=== PATIENT | male | born 1950 | race Caucasian/White ===

== ENCOUNTER 2019-09-22 08:08 | Day surgery (SDC) | payer MEDICARE, SELFPAY ==
[2019-09-22] VITALS (11 sets, daily range): BP systolic 125–185; BP diastolic 63–93; PULSE 63–82; RESP 12–17; TEMP 36.3–36.9; O2SAT 92–100
--- NOTE | 2019-09-22 08:35 | W.PM.OPSFHP ---
Same Day Surgery H&P Indication for Procedure/HPI DATE OF PROCEDURE: September 22, 2019 CHIEF COMPLAINT/INDICATIONFOR SURGICAL PROCEDURE: Abdominal pain PREOP DIAGNOSIS: Symptomatic cholelithiasis PLANNED PROCEDRUE: Operation Date: 09/22/19 11:35 Proposed Procedures p Laparoscopic Cholecystectomy 00909 K80.20(Not Applicable) - Quentin Lora MD This is a pleasant 68 years old gentleman with history of symptomatic cholelithiasis associated with fatty dyspepsia and right upper quadrant abdominal pain, patient was supposed to get his surgery few months ago but for different reasons he was not able to get it done, now he is ready and he comes today after informed consent being obtained for laparoscopic cholecystectomy possible open. Since it has been a long time since patient had blood work will obtain today CBC and CMP ROS All systems have been reviewed negative except as per the above Medications/Allergies* Home Medications Medication Instructions Recorded Confirmed Type amlodipine 5 mg PO DAILY 09/22/19 09/22/19 History bisacodyl 5 mg PO DAILY 09/22/19 09/22/19 History pantoprazole 20 mg PO DAILY 09/22/19 09/22/19 History sertraline 200 mg PO DAILY 09/22/19 09/22/19 History Allergies/Adverse Reactions Allergy/AdvReac Type Severity Reaction Status Date / Time clozapine Allergy Unknown Unknown Verified 09/22/19 08:37 haloperidol [From Haldol] Allergy Unknown Unknown Verified 09/22/19 08:37 mirtazapine Allergy Unknown Unknown Verified 09/22/19 08:37 nefazodone Allergy Unknown Unknown Verified 09/22/19 08:37 clonazepam AdvReac ADR-Irritab Verified 09/22/19 08:37 le Pertinent History/Comorbid Conditions* Schizophrenia Obsessive-compulsive disorder Hypothyroidism Hyperlipidemia Retrograde ejaculation Hematochezia BPH Cholelithiasis Previous hernia repair Pertinent Exam Findings alert, oriented x 3, clear to auscultation bilaterally and regular rate & rhythm Abdominal examination nontender nondistended soft no signs of peritonitis or guarding Recommendations Surgery/Procedure today (Plan of care;After thorough history physical examination and reviewing the chart ,I counseled the patient for laparoscopic cholecystectomy possible open, indications risks including but not limited injury to the common bile duct and other viscera.benefits and alternatives all discussed with the patient, and she did agree to proceed.All questions have been answered and all concerns have been addressed to patient's satisfaction.Informed consent per chart) Coding Level of Care Code Acute Stemhole Borer And Topper for Alex Webb
[2019-09-22] MEDS: sodium chloride 0.9% 1,000 ML 30 ML IV (08:45)
--- NOTE | 2019-09-22 09:00 | ANES.PREANE2 ---
Pre-Anesthetic Assessment Pre-Anesthetic Assessment: Height/Weight: Height 1.83 m Weight 72.575 kg Temp Pulse Resp BP Pulse Ox 98.5 F 63 17 125/63 93 09/22/19 08:33 09/22/19 08:33 09/22/19 08:33 09/22/19 08:33 09/22/19 08:33 Preop Diagnosis: Symptomatic cholelithiasis Proposed Procedure: Operation Date: 09/22/19 11:35 Proposed Procedures p Laparoscopic Cholecystectomy 03764 K80.20(Not Applicable) - Quentin Lora MD Last intake: Intake Last Liquid Date 09/22/19 Last Liquid Time 03:00 Last Solid Date 09/22/19 Last Solid Time 17:15 Social: Social History: No alcohol and No tobacco Exam: Pre-Anes Outpt Exam: alert, oriented x 3, clear to auscultation bilaterally and regular rate & rhythm Airway: Submandibular: WNL Cervical ROM: WNL MP: 2 Dentition: Other (ok) History/ROS: No significant history except as noted Pulmonary: Pulmonary: None reported CV/HEM: CV/HEM: HTN : : None reported Hepatic: Hepatic: None reported GI: GI: GERD (probably 2nd to GB Dz) Metabolic: Metabolic: None reported Musc/skel: Musc/skel: None reported Neuropsych: Neuropsych: Anxiety and Depression Comments: schizophrenia Anesthetic Plan: ASA status: 3 Anesthesia: Anesthesia Evaluation and General Risk of > 500 ml blood loss (7ml/kg in children): No Meds/Allergies Current Medications: Current Medications Generic Name Dose Route Start Last Admin Trade Name Freq PRN Reason Stop Dose Admin Sodium Chloride 1,000 mls @ 30 ml s/hr 09/22/19 08:30 09/22/19 08:45 Sodium Chloride 0.9% IV 09/23/19 08:29 30 mls/hr .Q24H ROBBIE Administration Data Anesthesia Cardiac Studies: No Data to Display
[2019-09-22 09:20] LABS: Basophils % 0.4 %; Eosinophils # 0.3 10^3/uL (0.0-0.8); Eosinophils % 3.8 %; Hematocrit 42.5 % (42.0-52.0); Hemoglobin 14.2 g/dL (11.7-16.6); Lymphocytes # 1.6 10^3/uL (0.8-4.8); Lymphocytes % 18.9 %; Mean Corpuscular HGB Conc 33.4 g/dL (30.0-36.0); Mean Corpuscular Hemoglobin 30.8 pg (28.0-34.0); Mean Corpuscular Volume 92.2 fL (80-94); Mean Platelet Volume 10.2 fL (7.4-10.4); Monocytes # 0.6 10^3/uL (0.2-0.9); Neutrophils # 5.7 10^3/uL (1.8-7.7); Neutrophils % 69.5 %; Nucleated Red Blood Cells % 0 %; Platelet Count 197 10^3/cmm (130-400); Red Blood Count 4.61 10^6/uL (4.1-5.3); Red Cell Distribution Width 12.9 % (12.1-15.1); White Blood Count 8.3 10^3/uL (4.0-10.0)
[2019-09-22] MEDS: lidocaine 2% INJ 20 mL INJECTION (09:32)
[2019-09-22 09:37] LABS: Alanine Aminotransferase 27 U/L (0-41); Alkaline Phosphatase 95 IU/L (40-130); Aspartate Amino Transferase 25 U/L (0-40); Blood Urea Nitrogen 12 mg/dL (8-23); Calcium 9.3 mg/dL (8.5-10.5); Carbon Dioxide 31 mmol/L (22-29); Chloride 103 mmol/L (98-107); Globulin 3.4 g/dL (1.3-4.6); Glomerular Filtration Rate 111.8 mL/min (90-130); Glucose 115 mg/dL (65-115); Osmolality Calculated 293 mOsm/kg (285-295); Sodium 143 mmol/L (136-145); Total Bilirubin 0.4 mg/dL (0.15-1.2); Total Protein 7.4 g/dL (6.6-8.7)
--- NOTE | 2019-09-22 10:30 | PM.OP ---
Operative Report Date of procedure: September 22, 2019 Pre-op Diagnosis: Symptomatic cholelithiasis Post-op diagnosis: other (Chronic calculus cholecystitis) Procedure Done: Laparoscopic cholecystectomy Specimens removed/disposition: Gallbladder and contents Surgeon: Quentin Lora Weight Training Instructor: Surgical johanna Hirsch Circulating nurse Chikis Anesthesia: General (JUDD Payne) Estimated blood loss (mL): 10 Condition: stable Disposition: same day Brief History: This is a pleasant 69 years old gentleman referred to my office with history of symptomatic cholelithiasis. Plan of care; After thorough history physical examination and reviewing the chart ,I counseled the patient for laparoscopic cholecystectomy possible open, indications risks including but not limited injury to the common bile duct and other viscera.benefits and alternatives all discussed with the patient, and she did agree to proceed. All questions have been answered and all concerns have been addressed to patient's satisfaction. Informed consent per chart Procedure: Patient was identified in the holding area and taken back to the operative suite, placed in supine position intubated by anesthesia . Time-out was done verifying the patient's name/date of /planned procedure and destination after the procedure, all were in agreement. SCDs confirmed to be functioning, preoperative antibiotics administered per protocol, and beta dyana protocol was confirmed. Patient was appropriately secured to the table, footboard was applied to the OR table, before prep and drape anesthesia was asked to tilt the table back and forth to make sure that the patient is appropriately secured and he was. Prep and drape of the abdomen was done under the usual sterile technique, followed by that supraumbilical skin incision,skin incision was done by a 15 blade knife, and stay sutures were applied to the fascia and Bassett trocar technique was used to enter the abdominal without injuring any abdominal viscera, started by low flow gas insufflation followed by a high flow, started with a 10 mm laparoscope and under direct vision there was no evidence of any injuries, the scope then switched to a 30? ,10 millimeter scope and under direct visualization 5 millimeter trocar was inserted in the epigastric region followed by two 5 mm trocars were inserted in the right upper quadrant that was done after injection of local lidocaine 2% at all incision sites. Gallbladder showed chronic calculus cholecystitis with scarring towards the cystic duct and cystic artery Patient was then positioned in the head up and tilted to the left dissection started by taking adhesions down using [place] forceps with heat, continued dissection until I identified the critical view of the cystic duct and cystic artery where seen connected to the gallbladder. Clips were applied on the cystic duct towards the common bile duct 1 towards the gallbladder then divided is in sharp scissors, 2 clips were then applied onto the cystic artery and 1 towards the gallbladder and divided by sharp scissors. There Was an additional vessel traversing the gallbladder fossa that was clipped as well Dissection was then carried along of the gallbladder from the gallbladder fossa using cautery as well as sharp dissection with heat energy. The gallbladder then was dissected out from the gallbladder fossa totally , cholecystectomy was then achieved and was placed in an Endo Catch bag and then retrieved from the Bassett trocar site under direct visualization using a 5 mm 30? scope through the epigastric trocar, specimen was then passed to the circulating nurse to go for permanent pathology,irrigation and hemostasis was done to the gallbladder fossa after hemostasis was secured, final survey laparoscopy was done that showed no injuries. Suction irrigation was obtained There wasa abnd of omentum attached at the infrumblical region that was taken down using electrocautrization under direct vision. The supraumbilical fascial defect was then closed using interrupted Vicryl sutures using a fascial closure device ;Milton Kemp under direct visualization Gas was allowed to deflate,Trocars were then taken out under direct vision there was no evidence of bleeding Specimen was passed to the circulating nurse for permanent pathology. No drains were placed and the supraumbilical incision as well as all trocar sites were closed by by 4-0 Monocryl to approximate the skin edges of the supraumbilical incision, dressing was applied in the form of Dermabond and the patient patient got extubated and was taken to recovery area in a stable condition. Count of sponges, needles and instruments were completed at the end of the procedure I was present for the whole entire procedure.
--- NOTE | 2019-09-22 11:04 | PC.NURSE ---
1102- ORAL AIRWAY OUT, SIMPLE MASK AT 6LPM, SAT 97%
[2019-09-22] MEDS: HYDROcodone-acetaminophen 5-325 mg Tablet 1 TAB PO (11:58)
== END 2019-09-22 13:03 | disposition home or self-care (01) ==
PROVIDERS: Family Provider Internal Medicine; PCP Emergency Medicine Emergency Medical Services; Visit Provider Surgery
PROC: 0FT44ZZ Resection of Gallbladder, Percutaneous Endoscopic Approach (ICD-10-PCS; CPT 47562; principal; 2019-09-22 11:35)
DX: K80.10 Calculus of gallbladder with chronic cholecystitis without obstruction (principal); I10 Essential (primary) hypertension; K21.9 Gastro-esophageal reflux disease without esophagitis; E03.9 Hypothyroidism, unspecified; E78.5 Hyperlipidemia, unspecified; N40.0 Benign prostatic hyperplasia without lower urinary tract symptoms
CPT/HCPCS: 47562; 12345; 36415; 80053; 85025; 88304; 96365; J0131; J0690; J1100; J2001; J2405; J2704; J2710; J3010; J3490; J7030

== ENCOUNTER → 2020-01-05 11:44 | Outpatient (BNVA) | payer OTHER, SELFPAY | PROVIDERS: Family Provider Internal Medicine; PCP Emergency Medicine Emergency Medical Services; Referring Provider Emergency Medicine Emergency Medical Services; Visit Provider Specialist | DX: G20 Parkinson's disease (principal) | CPT/HCPCS: 99214 ==

== ENCOUNTER 2021-04-26 08:07 | Outpatient (CLI) | payer MEDICARE, SELFPAY ==
--- NOTE | 2021-04-26 08:11 | CT_ITS ---
WS: [id number] CT CHEST WITH INTRAVENOUS CONTRAST HISTORY: DYSPHAGIA TECHNIQUE: Contiguous 5 mm axial imaging performed on the thorax. Coronal and sagittal reformats are submitted. All CT scans at [facility] use at least one of these dose optimization techniques: automated exposure control; mA and/or kV adjustment per patient size (includes targeted exams where dose is matched to clinical indication); or iterative reconstruction. CONTRAST: Omnipaque 300; 95 mL IV. DLP: 749.38 mGycm COMPARISON: None available. Lungs and central airway: Mild hyperinflation. No pulmonary mass, nodule or pneumonia. Pleura: Normal. No pleural effusion. Heart and pericardium: Normal size heart with no pericardial effusion. Scattered coronary artery calc ifications. Mediastinum and tonny: No mediastinum or hilar adenopathy. Vessels: Normal size aortic and pulmonary artery. No coronary artery calcifications. Chest wall and lower neck: No soft tissue masses. Upper abdomen: Prior cholecystectomy. 3 mm hypodensity in the RIGHT lobe of the liver. Visualized col on demonstrates moderate constipation. Osseous structures: No destructive process. CT/CT chest w con* [id number] IMPRESSION: 1. Mild emphysema. 2. No pulmonary mass or pneumonia. 3. No adenopathy. 4. Prior cholecystectomy.
--- NOTE | 2021-04-26 08:13 | FL_ITS ---
WS: [id number] ESOPHAGRAM WITH FLUOROSCOPY HISTORY: DYSPHAGIA COMPARISON: None available. FLUOROSCOPY TIME: 1.3 minutes. Esophagus and swallowing function: Patient swallowed the barium mixture without difficulty. No strict ures or mucosal abnormalities are identified. No persistent filling defects. Barium tablet was swallo wed without difficulty. Very mild cricopharyngeal spasm. Gastroesophageal reflux: None. Hiatal hernia: Small hiatal hernia was visualized briefly during this examination. FL/FL barium swallow [id number] IMPRESSION: 1. No high-grade strictures in the esophagus. 2. Small hiatal hernia. 3. Mild cricopharyngeal spasm.
[2021-04-26] MEDS: iohexol 300 mg/mL 100 mL Btl IV (08:48)
== END 2021-04-26 08:08 | disposition home or self-care (01) ==
PROVIDERS: PCP Nurse Practitioner Family; Visit Provider Specialist
DX: R05.9 Cough, unspecified (principal); R13.10 Dysphagia, unspecified; J43.9 Emphysema, unspecified; Z90.49 Acquired absence of other specified parts of digestive tract; K44.9 Diaphragmatic hernia without obstruction or gangrene
CPT/HCPCS: 71260; 74220; Q9967

== ENCOUNTER 2021-04-27 06:37 | Emergency (ER) | payer OTHER, MEDICARE, SELFPAY ==
[2021-04-27 06:37] VITALS: BP 178/82; PULSE 90; RESP 18; TEMP 37; O2SAT 95; BMI 20.9
--- NOTE | 2021-04-27 06:38 | ED_ITS ---
HPI - Abdominal Pain General: Chief Complaint: Abdominal Pain Stated Complaint: ABD PAIN Time Seen by Provider: 04/27/21 06:37 History of Present Illness: HPI narrative: Mr. Henderson is a 70-year-old gentleman with history of psychiatric disorder, hypertension, diabetes who presents emergency department due to abdominal pain. Symptom onset was gradual 4 to 5 days ago. He notes increased thirst and increased urine output. He has a longstanding history of reduced stream that has been worsening, he has multiple times of getting up at night to urinate. Surgical abdominal history notable for cholecystectomy. He has a previous history of hernia repair and has a current known inguinal hernia however he reports that this pain is different than that pain. Current pain is moderate intensity feels sharp and achy in the suprapubic region. He has mild associated generalized malaise and nausea, he has had a few episodes of watery stool. No other specific exacerbating or alleviating factors identified. Review of Systems General: Reports: 10 or more systems reviewed and unremarkable except in HPI and below PFSH ED PFSH: Medical History (Updated 04/27/21 @ 09:31 by Yonatan Huffman MD) Right inguinal hernia Schizo-affective schizophrenia Surgical History History of laparoscopic cholecystectomy Hx of umbilical hernia repair Physical Exam Narrative: EXAM NARRATIVE: GENERAL/CONSTITUTIONAL - well-appearing. No acute distress. Eyes - no scleral icterus., no conjunctival injection ENMT - Atraumatic external nose and ears. Moist mucous membranes NECK - supple. trachea midline CARDIOVASCULAR - regular rate and rhythm. RESPIRATORY -clear to auscultation bilaterally. ABDOMEN/GI - tenderness to moderate depth palpation in the suprapubic region and bilateral lower quadrants, no evidence of peritonitis MSK - Extremities without obvious deformity or tenderness to palpation SKIN - Warm, Dry NEURO - alert and appropriately oriented. Moves all extremities equally. Course ED course: - Patient was seen and evaluated by me at bedside - Patient placed on cardiac monitors, IV access obtained - Initial evaluation notable for no acute distress, nontoxic appearance. Abdominal exam as noted -Symptom treatment ordered - Labs notable for mild leukocytosis. Hyponatremia, hypokalemia, hypochloremia noted on metabolic panel, patient does endorse drinking more water over the past few days. Urinalysis concerning for urinary tract infection - Imaging notable for limited evaluation due to barium contrast from prior day. Patient does have enlarged prostate. - Upon serial reexamination after treatment the patient was improved - Based on patient history, evaluation, labs, and imaging as interpreted the most likely cause of the patient's condition is urinary tract infection in the context of bladder outlet obstruction. I discussed the nature and need to follow-up regarding possible etiologies of prostate enlargement. Given jolene rey's overall exam and evidence of urinary tract infection no additional inpatient management is required despite limited evaluation on CT - The results of ED evaluation were discussed with the patient including prescriptions and/or symptomatic cares (if applicable) including appropriate and responsible use, followup plan, and return precautions. The patient verbalized understanding and felt safe for discharge. - Patient discharged in satisfactory condition. Vital Signs: Vital signs: Vital Signs Temperature 98.6 F 04/27/21 06:37 Pulse Rate 81 04/27/21 07:57 Respiratory Rate 18 04/27/21 07:57 Blood Pressure 163/77 04/27/21 07:57 Pulse Oximetry 91 04/27/21 07:57 MDM - Abdominal Pain Medical Records: Attestation: I reviewed the patient's medical records. Lab Data: Attestation: I reviewed the patient's lab results. Labs: Lab Results 04/27/21 04/27/21 04/27/21 07:00 07:00 07:46 WBC 12.8 10^3/uL H 10 ^3/uL (4.0-10.0) RBC 4.08 10^6/uL L 10 ^6/uL (4.1-5.3) Hgb 12.4 g/dL g/dL (11.7-16.6) Hct 35.7 % L % (42.0-52.0) MCV 87.5 fl fl (80-94) MCH 30.4 pg pg (28.0-34.0) MCHC 34.7 g/dL g/dL (30.0-36.0) RDW 12.1 % % (12.1-15.1) Plt Count 192 10^3/cmm 10^3 /cmm (130-400) MPV 10.3 fL fL (7.4-10.4) Neut % (Auto) 82.8 % % Lymph % (Auto) 8.4 % % Leake % (Auto) 8.1 % % Eos % (Auto) 0.3 % % Baso % (Auto) 0.2 % % Neut # (Auto) 10.60 10^3/uL H 1 0^3/uL (1.8-7.7) Lymph # (Auto) 1.1 10^3/uL 10^3/ uL (0.8-4.8) Leake # (Auto) 1.0 10^3/uL H 10^ 3/uL (0.2-0.9) Eos # (Auto) 0.0 10^3/uL 10^3/ uL (0.0-0.8) Baso # (Auto) 0.0 10^3/uL 10^3/ uL (0.0-0.1) Nucleated RBC % (a uto) 0 % % Nucleated RBCs # 0.0 /100WBC /100W BC Sodium Cancelled 126 mmol/L L mmol /L (136-145) Potassium Cancelled 3.4 mmol/L L mmol /L (3.5-5.1) Chloride Cancelled 91 mmol/L L mmol/ L (98-107) Carbon Dioxide Cancelled 26 mmol/L mmol/L (22-29) Anion Gap Cancelled 12.4 (5-19) BUN Cancelled 7 mg/dL L mg/dL (8-23) Creatinine Cancelled 0.5 mg/dL L mg/dL (0.7-1.2) GFR Calculation Cancelled 164.4 mL/min H mL /min (90-130) Glucose Cancelled 119 mg/dL H mg/dL (65-115) Calculated Osmolal ity Cancelled 261 mOsm/kg L mOs m/kg (285-295) Calcium Cancelled 8.2 mg/dL L mg/dL (8.5-10.5) Total Bilirubin Cancelled 0.4 mg/dL mg/dL (0.15-1.2) AST Cancelled 17 U/L U/L (0-40) ALT Cancelled 15 U/L U/L (0-41) Alkaline Phosphata se Cancelled 84 IU/L IU/L (40-130) Total Protein Cancelled 5.9 g/dL L g/dL (6.6-8.7) Albumin Cancelled 3.5 g/dL g/dL (3.5-5.2) Globulin Cancelled 2.4 g/dL g/dL (1.3-4.6) Lipase Cancelled 22 U/L U/L (13-60) Urine Color Urine Appearance Urine pH Ur Specific Gravit y Urine Protein Urine Glucose (UA) Urine Ketones Urine Blood Urine Nitrate Urine Bilirubin Urine Urobilinogen Ur Leukocyte Jodi ase Urine RBC Urine WBC Ur Squamous Epith Cells Amorphous Sediment Urine Bacteria 04/27/21 09:00 WBC RBC Hgb Hct MCV MCH MCHC RDW Plt Count MPV Neut % (Auto) Lymph % (Auto) Leake % (Auto) Eos % (Auto) Baso % (Auto) Neut # (Auto) Lymph # (Auto) Leake # (Auto) Eos # (Auto) Baso # (Auto) Nucleated RBC % (a uto) Nucleated RBCs # Sodium Potassium Chloride Carbon Dioxide Anion Gap BUN Creatinine GFR Calculation Glucose Calculated Osmolal ity Calcium Total Bilirubin AST ALT Alkaline Phosphata se Total Protein Albumin Globulin Lipase Urine Color Yellow (Yellow) Urine Appearance Sl hazy (CLEAR) Urine pH 8 H (5-7) Ur Specific Gravit y 1.010 (1.005-1.030) Urine Protein Neg (Negative) Urine Glucose (UA) Norm (Normal) Urine Ketones 1+ H (Negative) Urine Blood Neg (Negative) Urine Nitrate Negative (Negative) Urine Bilirubin Neg (Negative) Urine Urobilinogen Norm mg/dL mg/dL (Negative) Ur Leukocyte Jodi ase 2+ H (Negative) Urine RBC None /hpf /hpf (0-2) Urine WBC 25-40 /hpf H /hpf (0-5) Ur Squamous Epith Cells None /hpf /hpf (0-5) Amorphous Sediment Not Reportable Urine Bacteria 2+ /hpf H /hpf (NONE) Discharge Plan Discharge Patient Disposition: Home Clinical Impression: Abdominal pain, Enlarged prostate, Acute UTI Condition: Stable Prescriptions: New Flomax 0.4 mg capsule 0.4 mg PO .qhs Qty: 30 RF: 0 Cipro 500 mg tablet 500 mg PO BID 14 Days Qty: 28 RF: 0 No Action aripiprazole IM .MONTHLY RF: 0 metformin 500 mg tablet 500 mg PO DAILY RF: 0 sertraline 100 mg Tablet 200 mg PO DAILY RF: 0 amlodipine 5 mg Tablet 5 mg PO DAILY RF: 0 pantoprazole 20 mg Tablet,Delayed Release (Dr/Ec) 20 mg PO DAILY RF: 0 bisacodyl 5 mg Tablet,Delayed Release (Dr/Ec) 5 mg PO DAILY RF: 0 Discharge Orders: Discharge ED (Routine); Ordered 04/27/21 Ordered By: Yonatan Huffman Referrals: Bhavna Valerio FNP [Primary Care Provider] - Discharge Diet: Advance as tolerated and Clear Liquid Discharge Activity: Resume usual activity Patient Instructions: Urinary Tract Infection in Men (ED), Abdominal Pain (ED) Activity Restrictions/Additional Instructions: Thank you for visiting the emergency department. You were seen and evaluated for abdominal pain. The exact cause of your symptoms is unclear though may be related to a urinary tract infection. You will be given a prescription for antibiotics . CT was limited in evaluation due to the retained barium contrast. You were noted to have heterogeneously enhancing nodular enlarged prostate suspicious for neoplasia/hyperplasia measuring 5.4 x 5.3 CM. Indentation on the bladder with evidence of bladder outlet obstruction. This requires follow-up with your [facility] care provider after and urology, you need further evaluation for possibility of cancer. You will be given a prescription to aid with urinary symtpoms. This can cause low blood pressure, please be cautious standing suddenly and watch for signs like dizziness. Your sodium, potassium, and chloride were mildly low, you should not drink excessive amounts of water and should drink electrolyte solutions sparingly throughout the day. Please return to the emergency department for worsening of your symptoms, failure to improve, inability to void, or anything else that you are concerned about and feel needs emergency department evaluation. Coding Level of Care Code ED Web Application Tester for Alex Webb
--- NOTE | 2021-04-27 06:48 | CT_ITS ---
WS: [id number] CT ABDOMEN PELVIS TECHNIQUE: Contrast-enhanced CT of the abdomen and pelvis with coronal and sagittal reformatted image s. CLINICAL INFORMATION: suprapubic abdominal pain COMPARISON: None. DLP: 1340.[address] scans at [facility] use at least one of these dose optimization techniques: automated e xposure control; mA and/or kV adjustment per patient size (includes targeted exams where dose is matc hed to clinical indication); or iterative reconstruction. FINDINGS: Retained barium in the colon from recent barium swallow. This degrades images in the abdomen and pelv is. Tiny hepatic cysts. Normal GE junction. Adrenal glands are normal. No hydronephrosis in either kidney . Pancreas appears normal. Normal caliber abdominal aorta. Aortic calcification. Urine distended bladder with heterogeneous nodular enlarged prostate measuring 5.3 x 5.4 cm. Indentat ion on the bladder. Recommend correlation PSA. Evidence of bladder outlet obstruction. Tiny fat-containing umbilical hernia. Mild disc space narrowing L4-5. Lumbar curve convex left. Incidental fat-containing right inguinal hernia. CT/CT abdomen pelvis w con* [id number] IMPRESSION: 1. Images significantly degraded by retained barium in the colon from recent b arium swallow. 2. Heterogeneously enhancing nodular enlarged prostate suspicious for neoplasi a/hyperplasia measuring 5.4 x 5.3 CM. Indentation on the bladder with evidence of bladder outlet obstruction. Recommend correlation PSA. 3. Prior cholecystectomy. 4. Tiny fat-containing umbilical hernia. 5. No other suspicious findings considering limitations from barium artifact.
[2021-04-27] MEDS: ketorolac 30 mg/mL INJ 15 MG IVP (07:08)
[2021-04-27] MEDS: ondansetron 2 mg/ML SDV 2 mL 4 MG IVP (07:09)
[2021-04-27 07:12] LABS: Basophils % 0.2 %; Eosinophils % 0.3 %; Hematocrit 35.7 % (42.0-52.0); Hemoglobin 12.4 g/dL (11.7-16.6); Lymphocytes # 1.1 10^3/uL (0.8-4.8); Lymphocytes % 8.4 %; Mean Corpuscular HGB Conc 34.7 g/dL (30.0-36.0); Mean Corpuscular Hemoglobin 30.4 pg (28.0-34.0); Mean Corpuscular Volume 87.5 fl (80-94); Mean Platelet Volume 10.3 fL (7.4-10.4); Monocytes % 8.1 %; Neutrophils % 82.8 %; Nucleated Red Blood Cells % 0 %; Platelet Count 192 10^3/cmm (130-400); Red Blood Count 4.08 10^6/uL (4.1-5.3); Red Cell Distribution Width 12.1 % (12.1-15.1); White Blood Count 12.8 10^3/uL (4.0-10.0)
[2021-04-27 07:57] VITALS: BP 163/77; PULSE 81; RESP 18; O2SAT 91
[2021-04-27] MEDS: sodium chloride 0.9% 500 ML 999 ML IV (08:09)
[2021-04-27 08:23] LABS: Alanine Aminotransferase 15 U/L (0-41); Albumin Level 3.5 g/dL (3.5-5.2); Alkaline Phosphatase 84 IU/L (40-130); Anion Gap 12.4 (5-19); Aspartate Amino Transferase 17 U/L (0-40); Blood Urea Nitrogen 7 mg/dL (8-23); Calcium 8.2 mg/dL (8.5-10.5); Carbon Dioxide 26 mmol/L (22-29); Chloride 91 mmol/L (98-107); Globulin 2.4 g/dL (1.3-4.6); Glomerular Filtration Rate 164.4 mL/min (90-130); Glucose 119 mg/dL (65-115); Lipase 22 U/L (13-60); Osmolality Calculated 261 mOsm/kg (285-295); Potassium 3.4 mmol/L (3.5-5.1); Sodium 126 mmol/L (136-145); Total Bilirubin 0.4 mg/dL (0.15-1.2); Total Protein 5.9 g/dL (6.6-8.7)
[2021-04-27 09:19] LABS: Urine Appearance SL Hazy (CLEAR); Urine Color Yellow (Yellow); pH Urine 8 (5-7)
[2021-04-27 09:20] LABS: Add Urine Microscopic? YES; Bilirubin Urine Neg (Negative); Blood Urine Neg (Negative); Glucose Urine UA Norm (Normal); Ketones Urine 1+ (Negative); Leukocyte Esterase Urine 2+ (Negative); Nitrate Urine Negative (Negative); Protein Urine Neg (Negative); Urobilinogen Urine Norm (Negative)
[2021-04-27 09:21] LABS: Add Urine Culture? Yes; Bacteria Urine 2+ /hpf; WBC Urine 25-40 /hpf (0-5)
[2021-04-27] MEDS: potassium chloride ER 20 mEq Tablet PO (09:40)
[2021-04-27] MEDS: acetaminophen 500 mg Tablet 1000 MG PO (09:40)
[2021-04-27 09:44] VITALS: BP 135/85; PULSE 82; RESP 17; O2SAT 93
== END 2021-04-27 09:55 | disposition home or self-care (01) ==
PROVIDERS: Emergency Provider Emergency Medicine; PCP Nurse Practitioner Family
DX: N39.0 Urinary tract infection, site not specified (principal); N40.0 Benign prostatic hyperplasia without lower urinary tract symptoms; Z79.84 Long term (current) use of oral hypoglycemic drugs
CPT/HCPCS: 74177; 80053; 81001; 83690; 85025; 87077; 87086; 87186; 96374; 96375; 99284; J1885; J2405; J7040; Q9967

== ENCOUNTER 2021-05-01 05:43 | Emergency (ER) | payer OTHER, MEDICARE, SELFPAY ==
[2021-05-01 05:50] VITALS: BP 168/90; PULSE 99; RESP 20; O2SAT 98; BMI 20.9
[2021-05-01 06:08] LABS: Add Urine Microscopic? NO; Charge for UA Resulting for Rev
--- NOTE | 2021-05-01 06:14 | W.ED.ABDPA2 ---
HPI - Abdominal Pain General: Chief Complaint: Abdominal Pain Stated Complaint: trouble urinating Time Seen by Provider: 05/01/21 05:52 History of Present Illness: HPI narrative: 70-year-old male presents emergency room with complaint of difficulty urinating. He was recently diagnosed with a UTI and has been on antibiotics for the last 3 days. Is not been able to void. He has had problems in the past with urinary retention requiring a Browning. MD elicited complaint: abdominal pain Pertinent past history: other (BPH.) Onset (ago): hour(s) Pain Consistency: constant Location: Suprapubic Severity: moderate Quality: cramping Associated Symptoms: Denies bloating, chills, coffee ground emesis, constipation, diarrhea, dysuria, fever(s), hematochezia, hematemesis, melena, nausea and vomiting Review of Systems Const: Denies: fever(s), chills, body aches, change in appetite, fatigue or malaise Card: Denies: chest pain, edema, dyspnea on exertion or orthopnea Resp: Denies: dyspnea, productive cough or non-productive cough GI: Denies: abdominal pain, nausea, vomiting, hematemesis, coffee ground emesis, diarrhea, constipation, bloating, hematochezia or melena : Reports: difficulty urinating and urinary hesitancy; Denies: flank pain, dysuria, urinary frequency or urinary urgency Skin/Breast: Denies: rash or pruritus [facility] ED PFSH: Medical History Right inguinal hernia Schizo-affective schizophrenia Surgical History History of laparoscopic cholecystectomy Hx of umbilical hernia repair Physical Exam Const: COMMON NORMALS: no acute distress GENERAL APPEARANCE: cooperative and comfortable ORIENTATION/CONSCIOUSNESS: Yes awake, Yes oriented to person, Yes oriented to place and Yes oriented to time HENMT: COMMON NORMALS: normocephalic, atraumatic and hearing grossly normal bilaterally HEAD & SCALP: normocephalic and atraumatic Resp: COMMON NORMALS: normal respiratory effort, No retractions, No use of accessory muscles and clear to auscultation bilaterally AUSCULTATION: clear to auscultation bilaterally Cardio: COMMON NORMALS: regular rate, regular rhythm and No murmurs present (Cardio) RATE: regular rate RHYTHM: regular rhythm GI: COMMON NORMALS: Soft to palpation and No hepatosplenomegaly present AUSCULTATION: Yes normoactive bowel sounds PALPATION: Yes Soft to palpation, No Tenderness to palpation present (GI), No Guarding due to palpation present (GI) and Yes No hepatosplenomegaly present Extremity: COMMON NORMALS: normal to inspection, capillary refill normal, no clubbing, cyanosis or edema, no calf tenderness and no pedal edema Neuro: SENSORIUM/ORIENTATION: Yes oriented to person, Yes oriented to place and Yes oriented to time Skin: COMMON NORMALS: no rashes or lesions noted GENERAL SKIN EXAM: no rashes or lesions noted Course Vital Signs: Vital signs: Vital Signs Pulse Rate 73 05/01/21 10:12 Respiratory Rate 16 05/01/21 10:12 Blood Pressure 150/77 05/01/21 10:12 Pulse Oximetry 96 05/01/21 07:27 MDM - Abdominal Pain MDM Narrative: Medical decision making narrative: Browning catheter placed. Patient had good relief of symptoms. antibiotics follow-up with primary care. Lab Data: Labs: Lab Results 05/01/21 05/01/21 05/01/21 06:05 08:06 08:06 WBC 10.2 10^3/uL H 10 ^3/uL (4.0-10.0) RBC 3.98 10^6/uL L 10 ^6/uL (4.1-5.3) Hgb 12.1 g/dL g/dL (11.7-16.6) Hct 35.1 % L % (42.0-52.0) MCV 88.2 fl fl (80-94) MCH 30.4 pg pg (28.0-34.0) MCHC 34.5 g/dL g/dL (30.0-36.0) RDW 12.1 % % (12.1-15.1) Plt Count 240 10^3/cmm 10^3 /cmm (130-400) MPV 10.1 fL fL (7.4-10.4) Neut % (Auto) 84.7 % % Lymph % (Auto) 7.7 % % [place] % (Auto) 6.5 % % Eos % (Auto) 0.3 % % Baso % (Auto) 0.3 % % Neut # (Auto) 8.62 10^3/uL H 10 ^3/uL (1.8-7.7) Lymph # (Auto) 0.8 10^3/uL 10^3/ uL (0.8-4.8) [place] # (Auto) 0.7 10^3/uL 10^3/ uL (0.2-0.9) Eos # (Auto) 0.0 10^3/uL 10^3/ uL (0.0-0.8) Baso # (Auto) 0.0 10^3/uL 10^3/ uL (0.0-0.1) Nucleated RBC % (a uto) 0 % % Nucleated RBCs # 0.0 /100WBC /100W BC Sodium 131 mmol/L L mmol /L (136-145) Potassium 4.5 mmol/L mmol/L (3.5-5.1) Chloride 93 mmol/L L mmol/ L (98-107) Carbon Dioxide 29 mmol/L mmol/L (22-29) Anion Gap 13.5 (5-19) BUN 6 mg/dL L mg/dL (8-23) Creatinine 0.5 mg/dL L mg/dL (0.7-1.2) GFR Calculation 164.4 mL/min H mL /min (90-130) Glucose 123 mg/dL H mg/dL (65-115) Calculated Osmolal ity 271 mOsm/kg L mOs m/kg (285-295) Calcium 8.9 mg/dL mg/dL (8.5-10.5) Urine Color Yellow (Yellow) Urine Appearance Clear (CLEAR) Urine pH 7 (5-7) Ur Specific Gravit y 1.005 (1.005-1.030) Urine Protein Neg (Negative) Urine Glucose (UA) Norm (Normal) Urine Ketones 1+ H (Negative) Urine Blood Neg (Negative) Urine Nitrate Negative (Negative) Urine Bilirubin Neg (Negative) Urine Urobilinogen Norm mg/dL mg/dL (Negative) Ur Leukocyte Jodi ase Negative (Negative) Discharge Plan Discharge Patient Disposition: Home Clinical Impression: Acute urinary retention, Enlarged prostate Condition: Stable Prescriptions: New ciprofloxacin HCl 500 mg tablet 500 mg PO BID Qty: 14 RF: 0 Changed Flomax 0.4 mg capsule 0.8 mg PO .qhs Qty: 30 RF: 0 No Action aripiprazole IM .MONTHLY RF: 0 metformin 500 mg tablet 500 mg PO DAILY RF: 0 sertraline 100 mg Tablet 200 mg PO DAILY RF: 0 amlodipine 5 mg Tablet 5 mg PO DAILY RF: 0 pantoprazole 20 mg Tablet,Delayed Release (Dr/Ec) 20 mg PO DAILY RF: 0 bisacodyl 5 mg Tablet,Delayed Release (Dr/Ec) 5 mg PO DAILY RF: 0 Cipro 500 mg tablet 500 mg PO BID 14 Days Qty: 28 RF: 0 Discharge Orders: Discharge ED (Routine); Ordered 05/01/21 Ordered By: Mele Duckworth Referrals: Bhavna Valerio FNP [Primary Care Provider] - Discharge Diet: Usual diet Discharge Activity: Increase activity as tolerated Patient Instructions: Opioid Safety Activity Restrictions/Additional Instructions: banking manager will make arrangements for you to follow-up with urology. Coding Level of Care Code ED Court Commissioner for Alex Webb
[2021-05-01 06:17] LABS: Bilirubin Urine Neg (Negative); Blood Urine Neg (Negative); Glucose Urine UA Norm (Normal); Ketones Urine 1+ (Negative); Leukocyte Esterase Urine Negative (Negative); Nitrate Urine Negative (Negative); Protein Urine Neg (Negative); Specific Gravity, Urine 1.005 (1.005-1.030); Urine Appearance Clear (CLEAR); Urine Color Yellow (Yellow); Urobilinogen Urine Norm (Negative); pH Urine 7 (5-7)
[2021-05-01 07:27] VITALS: BP 142/67; O2SAT 96
[2021-05-01 08:37] LABS: Basophils % 0.3 %; Eosinophils % 0.3 %; Hematocrit 35.1 % (42.0-52.0); Hemoglobin 12.1 g/dL (11.7-16.6); Lymphocytes # 0.8 10^3/uL (0.8-4.8); Lymphocytes % 7.7 %; Mean Corpuscular HGB Conc 34.5 g/dL (30.0-36.0); Mean Corpuscular Hemoglobin 30.4 pg (28.0-34.0); Mean Corpuscular Volume 88.2 fl (80-94); Mean Platelet Volume 10.1 fL (7.4-10.4); Monocytes # 0.7 10^3/uL (0.2-0.9); Monocytes % 6.5 %; Neutrophils # 8.62 10^3/uL (1.8-7.7); Neutrophils % 84.7 %; Nucleated Red Blood Cells % 0 %; Platelet Count 240 10^3/cmm (130-400); Red Blood Count 3.98 10^6/uL (4.1-5.3); Red Cell Distribution Width 12.1 % (12.1-15.1); White Blood Count 10.2 10^3/uL (4.0-10.0)
[2021-05-01 09:05] LABS: Anion Gap 13.5 (5-19); Blood Urea Nitrogen 6 mg/dL (8-23); Calcium 8.9 mg/dL (8.5-10.5); Carbon Dioxide 29 mmol/L (22-29); Chloride 93 mmol/L (98-107); Glomerular Filtration Rate 164.4 mL/min (90-130); Glucose 123 mg/dL (65-115); Osmolality Calculated 271 mOsm/kg (285-295); Potassium 4.5 mmol/L (3.5-5.1); Sodium 131 mmol/L (136-145)
[2021-05-01 10:12] VITALS: BP 150/77; PULSE 73; RESP 16
--- NOTE | 2021-05-02 09:51 | PC.SOCIAL ---
Addendum entered by Becky Moses 05/11/21 13:48: distribution operations manager spoke with Dani in Dr. Nunn office to confirm if an appointment had been scheduled for patient. distribution operations manager was told that the [place] is sending patient to [place]. Original Note: sent secure email to Christal Vee at [place] for the authorization to see Dr Ni. Also talked to Bridget at Urology clinic they are aware of need for appt and will wait for authorization from [place]. Once completed clinic will call patient.
== END 2021-05-01 10:15 | disposition home or self-care (01) ==
PROVIDERS: Emergency Medicine; Emergency Provider Family Medicine; PCP Nurse Practitioner Family
DX: N40.0 Benign prostatic hyperplasia without lower urinary tract symptoms (principal); R33.9 Retention of urine, unspecified
CPT/HCPCS: 51702; 51798; 80048; 81003; 85025; 99283

== ENCOUNTER 2021-05-05 10:35 | Emergency (ER) | payer OTHER, MEDICARE, SELFPAY ==
[2021-05-05 10:41] VITALS: BP 163/78; PULSE 84; RESP 18; TEMP 36.7; O2SAT 98; BMI 20.9
--- NOTE | 2021-05-05 10:49 | PC.NURSE ---
Had a rodriguez place Saturday, sent home with a leg bag and a larger bag. After bags were full, pt threw bags away. Need further education
--- NOTE | 2021-05-05 11:11 | CTR_ITS ---
PROCEDURE INFORMATION: Exam: CT Head Without Contrast Exam date and time: 05/05/2021 11:11 AM Age: 70 years old Clinical indication: Altered mental status/memory loss TECHNIQUE: Imaging protocol: Computed tomography of the head without contrast. Radiation optimization: All CT scans at this facility use at least one of these dose optimization techniques: automated exposure control; mA and/or kV adjustment per patient size (includes targeted exams where dose is matched to clinical indication); or iterative reconstruction. COMPARISON: MR head wo con* [id number] 02/07/2018 4:05 PM RADIATION DOSE METRICS: Total DLP (mGy-cm): 946.09 FINDINGS: Brain: No acute intracranial hemorrhage. There are prominent perivascular spaces within/adjacent to the basal ganglia bilaterally. There is a lacunar infarct in the right caudate head of indeterminate age. No mass, mass effect or midline shift.. There is no evidence of acute large vessel infarct.. There is mild patchy subcortical and periventricular hypodensity, most commonly associated with small vessel ischemic disease of indeterminate age. The posterior fossa is grossly unremarkable; however, it is partially obscurred by beam hardening artifact. Cerebral ventricles: The ventricles are normal in configuration. Paranasal sinuses: The visualized paranasal sinuses are clear. Mastoid air cells: No mastoid effusion. Auditory system: There is probable cerumen in the external auditory canals, bilaterally. Orbital cavity: The visualized orbits are unremarkable. Bones/joints: No acute fracture is seen. CT/CT head wo con* [id number] IMPRESSION: 1. 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 2. Mild presumed small vessel ischemic disease of indeterminate age. 3. No acute intracranial hemorrhage. Radiation Dose CTDIVOL = (mGy): DLP = 946.09 (mGy-cm)
--- NOTE | 2021-05-05 11:12 | ECG_ITS ---
[facility] Test Date: 2021-05-05 Pat Name: Sincere Henderson Department: Room: Gender: Male Environmental Project Manager: : 1950 Requested By: Mele Mejias Order Number: [id number] Malia MD: Leonila Cui M.D. Measurements Intervals [place] Rate: 79 P: 29 NE: 121 QRS: -11 QRSD: 105 T: 35 QT: 387 QTc: 444 Interpretive Statements SINUS RHYTHM Compared to ECG 06/29/2015 16:20:58 Sinus bradycardia no longer present Electronically Signed On 05-06-2021 8:53:09 CDT by Leonila Cui M.D. [id number]
--- NOTE | 2021-05-05 11:14 | ED_ITS ---
HPI - Male Genitourinary General: Chief complaint: Urogenital-Male Stated complaint: URINARY CATH ISSUES Time Seen by Provider: 05/05/21 10:47 History of Present Illness: HPI Narrative: 70-year-old male presents emergency room via EMS after PD was called for health and welfare check. Patient was really unable to give me any detailed information about how he came to be there other than he said the police knocked that his door violently and then EMS took him here. EMS reported to the nurse that the patient had taken back for the Browning catheter he had recently had placed for urinary retention and discarded and then attached a second bag that he had that became fully discarded that as well he was walking around the house with urine leaking of the Browning. Only called 911 to check and see why he EMS and PD were dispatched evidently he had [facility] was laughing and talking hysterically and they called PD due to the health and welfare check. He was not making any sense when they arrived so he was brought here for evaluation. When I asked him why he is here does not really give me any significant sensible answer. He says he cannot hear anything from above the ceiling tiles. I asked him why EMS and PD were called to his house he said it was to resolve a particular incident but will not describe what that incident is to him. He is on aripiprazole IM injections monthly. His recent he was started on ciprofloxacin. He has a history of diabetes as well. MD Complaint: other (Urinary retention/altered mental status) Onset (ago): hour(s) Duration: constant Relieving factors: none Exacerbating factors: none Context: new medication Associated symptoms: Reports nausea, urinary retention and other (Altered mental status); Deny discharge, dysuria, fevers/chills, hematuria, rash, swelling, urinary incontinence, mass or vomiting Review of Systems Const: Denies: fever(s), chills, body aches, change in appetite, fatigue or malaise ENMT: Denies: throat pain, ear or mastoid pain, nasal discharge or nasal congestion Card: Denies: chest pain, edema, dyspnea on exertion or orthopnea Resp: Denies: dyspnea, productive cough or non-productive cough GI: Reports: nausea; Denies: vomiting : Denies: dysuria, urinary incontinence or hematuria Skin/Breast: Denies: rash or pruritus PFSH ED PFSH: Medical History (Updated 05/05/21 @ 13:04 by Mele Duckworth DO) Right inguinal hernia Schizo-affective schizophrenia Surgical History History of laparoscopic cholecystectomy Hx of umbilical hernia repair Physical Exam Const: COMMON NORMALS: no acute distress GENERAL APPEARANCE: cooperative a nd comfortable ORIENTATION/CONSCIOUSNESS: Yes awake HENMT: COMMON NORMALS: normocephalic, atraumatic and hearing grossly normal bilaterally HEAD & SCALP: normocephalic and atraumatic Neck/C-Spine: COMMON NORMALS: no JVD Resp: COMMON NORMALS: normal respiratory effort, No retractions, No use of accessory muscles and clear to auscultation bilaterally AUSCULTATION: clear to auscultation bilaterally Cardio: COMMON NORMALS: no JVD, regular rate, regular rhythm and No murmurs present (Cardio) RATE: regular rate RHYTHM: regular rhythm GI: COMMON NORMALS: Soft to palpation and No hepatosplenomegaly present AUSCULTATION: Yes normoactive bowel sounds PALPATION: Yes Soft to palpation, No Tenderness to palpation present (GI), No Guarding due to palpation present (GI) and Yes No hepatosplenomegaly present Extremity: COMMON NORMALS: normal to inspection, capillary refill normal, no clubbing, cyanosis or edema, no calf tenderness and no pedal edema Skin: COMMON NORMALS: no rashes or lesions noted GENERAL SKIN EXAM: no rashes or lesions noted Course Vital Signs: Vital signs: Vital Signs Temperature 98.1 F 05/05/21 10:41 Pulse Rate 84 05/05/21 10:41 Respiratory Rate 18 05/05/21 10:41 Blood Pressure 163/78 05/05/21 10:41 Pulse Oximetry 98 05/05/21 10:41 MDM - Male MDM Narrative: Medical decision making narrative: Evaluated the patient for mental health issues. He is not suicidal or homicidal the report of him behaving abnormally can be substantiated it is just a report from 911 there was no other corroboration and he is denying. He does have a history of schizophrenia but at this time he is does not appear to be acutely psychotic. Offered him evaluation geriatric [facility] he declines and prefers to be discharged. I do not have enough to force him to stay on a 96-hour hold will discharge him home have him follow-up with urology. Lab Data: Labs: Lab Results 05/05/21 05/05/21 05/05/21 11:31 11:31 11:31 WBC 6.3 10^3/uL 10^3/ uL (4.0-10.0) RBC 4.41 10^6/uL 10^6 /uL (4.1-5.3) Hgb 13.4 g/dL g/dL (11.7-16.6) Hct 39.1 % L % (42.0-52.0) MCV 88.7 fl fl (80-94) MCH 30.4 pg pg (28.0-34.0) MCHC 34.3 g/dL g/dL (30.0-36.0) RDW 12.7 % % (12.1-15.1) Plt Count 309 10^3/cmm 10^3 /cmm (130-400) MPV 9.6 fL fL (7.4-10.4) Neut % (Auto) 74.6 % % Lymph % (Auto) 14.1 % % [place] % (Auto) 8.3 % % Eos % (Auto) 1.7 % % Baso % (Auto) 0.5 % % Neut # (Auto) 4.70 10^3/uL 10^3 /uL (1.8-7.7) Lymph # (Auto) 0.9 10^3/uL 10^3/ uL (0.8-4.8) [place] # (Auto) 0.5 10^3/uL 10^3/ uL (0.2-0.9) Eos # (Auto) 0.1 10^3/uL 10^3/ uL (0.0-0.8) Baso # (Auto) 0.0 10^3/uL 10^3/ uL (0.0-0.1) Nucleated RBC % (a uto) 0 % % Nucleated RBCs # 0.0 /100WBC /100W BC Sodium 135 mmol/L L mmol /L (136-145) Potassium 3.1 mmol/L L mmol /L (3.5-5.1) Chloride 96 mmol/L L mmol/ L (98-107) Carbon Dioxide 27 mmol/L mmol/L (22-29) Anion Gap 15.1 (5-19) BUN 11 mg/dL mg/dL (8-23) Creatinine 0.5 mg/dL L mg/dL (0.7-1.2) GFR Calculation 164.4 mL/min H mL /min (90-130) Glucose 111 mg/dL mg/dL (65-115) Calculated Osmolal ity 280 mOsm/kg L mOs m/kg (285-295) Calcium 8.9 mg/dL mg/dL (8.5-10.5) Total Bilirubin 0.4 mg/dL mg/dL (0.15-1.2) AST 22 U/L U/L (0-40) ALT 25 U/L U/L (0-41) Alkaline Phosphata se 84 IU/L IU/L (40-130) Total Protein 7.0 g/dL g/dL (6.6-8.7) Albumin 4.0 g/dL g/dL (3.5-5.2) Globulin 3.0 g/dL g/dL (1.3-4.6) TSH 2.61 uIU/mL uIU/m L (0.27-4.20) Salicylates < 0.3 mg/dL L mg/ dL (3-10) Urine Opiates Scre en Negative ng/mL ng /mL (Negative) Acetaminophen < 5.0 ug/mL L ug/ mL (10-30) Ur Barbiturates Sc reen Negative ng/mL ng /mL (Negative) Ur Phencyclidine S crn Negative ng/mL ng /mL (Negative) Ur Amphetamines Sc reen Negative ng/mL ng /mL (Negative) U Benzodiazepines Scrn Negative ng/mL ng /mL (Negative) Urine Cocaine Scre en Negative ng/mL ng /mL (Negative) U Marijuana (THC) Screen Negative ng/mL ng /mL (Negative) Ethyl Alcohol < 10 mg/dL mg/dL (0-10) Discharge Plan Discharge Patient Disposition: Home Clinical Impression: Acute urinary retention, Schizo-affective schizophrenia Condition: Stable Prescriptions: No Action aripiprazole IM .MONTHLY RF: 0 metformin 500 mg tablet 500 mg PO DAILY RF: 0 sertraline 100 mg Tablet 200 mg PO DAILY RF: 0 amlodipine 5 mg Tablet 5 mg PO DAILY RF: 0 pantoprazole 20 mg Tablet,Delayed Release (Dr/Ec) 20 mg PO DAILY RF: 0 bisacodyl 5 mg Tablet,Delayed Release (Dr/Ec) 5 mg PO DAILY RF: 0 Cipro 500 mg tablet 500 mg PO BID 14 Days Qty: 28 RF: 0 Flomax 0.4 mg capsule 0.8 mg PO .qhs Qty: 30 RF: 0 ciprofloxacin HCl 500 mg tablet 500 mg PO BID Qty: 14 RF: 0 Discharge Orders: Discharge ED (Routine); Ordered 05/05/21 Ordered By: Mele Duckworth Referrals: Bhavna Valerio FNP [Primary Care Provider] - Discharge Diet: Usual diet Discharge Activity: Resume usual activity Patient Instructions: Opioid Safety Activity Restrictions/Additional Instructions: Follow-up with urology within the next week to reevaluate the catheter. Coding Level of Care Code ED [employer] Plant Supervisor for Alex Fwedy Exam Comprehensive
[2021-05-05 11:43] LABS: Basophils % 0.5 %; Eosinophils # 0.1 10^3/uL (0.0-0.8); Eosinophils % 1.7 %; Hematocrit 39.1 % (42.0-52.0); Hemoglobin 13.4 g/dL (11.7-16.6); Lymphocytes # 0.9 10^3/uL (0.8-4.8); Lymphocytes % 14.1 %; Mean Corpuscular HGB Conc 34.3 g/dL (30.0-36.0); Mean Corpuscular Hemoglobin 30.4 pg (28.0-34.0); Mean Corpuscular Volume 88.7 fl (80-94); Mean Platelet Volume 9.6 fL (7.4-10.4); Monocytes # 0.5 10^3/uL (0.2-0.9); Monocytes % 8.3 %; Neutrophils % 74.6 %; Nucleated Red Blood Cells % 0 %; Platelet Count 309 10^3/cmm (130-400); Red Blood Count 4.41 10^6/uL (4.1-5.3); Red Cell Distribution Width 12.7 % (12.1-15.1); White Blood Count 6.3 10^3/uL (4.0-10.0)
[2021-05-05 12:20] LABS: Alanine Aminotransferase 25 U/L (0-41); Alkaline Phosphatase 84 IU/L (40-130); Anion Gap 15.1 (5-19); Aspartate Amino Transferase 22 U/L (0-40); Blood Urea Nitrogen 11 mg/dL (8-23); Calcium 8.9 mg/dL (8.5-10.5); Carbon Dioxide 27 mmol/L (22-29); Chloride 96 mmol/L (98-107); Glomerular Filtration Rate 164.4 mL/min (90-130); Glucose 111 mg/dL (65-115); Osmolality Calculated 280 mOsm/kg (285-295); Potassium 3.1 mmol/L (3.5-5.1); Sodium 135 mmol/L (136-145); Thyroid Stimulating Hormone 2.61 uIU/mL (0.27-4.20); Total Bilirubin 0.4 mg/dL (0.15-1.2)
[2021-05-05 12:21] LABS: Amphetamines Screen Urine Negative (Negative); Barbiturates Screen Urine Negative (Negative); Benzodiazepines Screen Urine Negative (Negative); Cocaine Screen Urine Negative (Negative); Opiate Screen Urine Negative (Negative); PCP Screen Urine Negative (Negative); THC Screen Urine Negative (Negative)
[2021-05-05 12:22] LABS: Acetaminophen < 5.0 ug/mL (10-30); Alcohol Level < 10 mg/dL (0-10); Salicylate < 0.3 mg/dL (3-10)
[2021-05-05 14:05] VITALS: BP 168/75; PULSE 90; RESP 18; O2SAT 99
--- NOTE | 2021-05-05 14:24 | DCPLANNER ---
manager marketing sales had message to schedule a follow up appointment for patient with Dr. Ni. manager marketing sales called the office of Dr. Ni, spoke with Dani, was told that patient is being referred [facility]. That the [facility] will be [facility] patient [facility] else.
== END 2021-05-05 14:06 | disposition home or self-care (01) ==
PROVIDERS: Emergency Provider Family Medicine; PCP Nurse Practitioner Family
DX: R33.9 Retention of urine, unspecified (principal); F25.9 Schizoaffective disorder, unspecified; Z79.84 Long term (current) use of oral hypoglycemic drugs
CPT/HCPCS: 70450; 80053; 80306; 80307; 84443; 85025; 93005; 99282

== ENCOUNTER 2021-06-09 08:53 | Outpatient (CLI) | payer MEDICARE, SELFPAY ==
--- NOTE | 2021-06-09 | CT_ITS ---
WS: [id number] CT scan of the neck. Additional two-dimensional coronal and sagittal reconstruction was performed. Clinical Data: DYSPHAGIA Comparison: None. DLP: 1053.[address] scans at [facility] use at least one of these dose optimization techniques: automated e xposure control; mA and/or kV adjustment per patient size (includes targeted exams where dose is matc hed to clinical indication); or iterative reconstruction. Findings: No lymphadenopathy is noted. The salivary glands are unremarkable. There is no prevertebral soft tiss ue swelling. The larynx is symmetric. The thyroid gland shows normal enhancement. The floor of the mo uth and parapharyngeal spaces are normal. The oral cavity is unremarkable. The carotid arteries bifurcate normally. The vertebral arteries show no abnormalities. The cervical s pine shows osteoarthritis and disc space narrowing. The lung apices show no abnormalities. The portio ns of the intracranial circulation which are seen demonstrate no abnormalities. No erosion of the sku ll or skull base is seen. CT/CT neck w con* [id number] Impression: Negative CT scan of the neck.
[2021-06-09] MEDS: iodixanol 320 mg/mL 100mL Btl IV (09:18)
== END 2021-06-09 08:54 | disposition home or self-care (01) ==
PROVIDERS: PCP Nurse Practitioner Family; Visit Provider Specialist
DX: R05.9 Cough, unspecified (principal); R13.10 Dysphagia, unspecified
CPT/HCPCS: 70491; Q9967

== ENCOUNTER → 2021-11-28 09:05 | Outpatient (BNVA) | payer OTHER, SELFPAY | PROVIDERS: PCP Emergency Medicine Emergency Medical Services; Visit Provider Nurse Practitioner Family | DX: N40.1 Benign prostatic hyperplasia with lower urinary tract symptoms (principal); R82.81 Pyuria | CPT/HCPCS: 51798; 81003; 87077; 87086; 87186; 99203 ==

== ENCOUNTER → 2022-01-01 13:09 | Outpatient (BNVA) | payer OTHER, SELFPAY | PROVIDERS: PCP Emergency Medicine Emergency Medical Services; Visit Provider Urology | DX: N40.1 Benign prostatic hyperplasia with lower urinary tract symptoms (principal); R82.71 Bacteriuria | CPT/HCPCS: 51741; 51798; 81003; 99213 ==

== ENCOUNTER → 2022-02-08 10:28 | Outpatient (BNVA) | payer OTHER, SELFPAY | PROVIDERS: PCP Emergency Medicine Emergency Medical Services; Visit Provider Podiatrist Foot & Ankle Surgery | DX: E11.42 Type 2 diabetes mellitus with diabetic polyneuropathy (principal); M76.821 Posterior tibial tendinitis, right leg; M76.822 Posterior tibial tendinitis, left leg | CPT/HCPCS: 99214 ==

== ENCOUNTER → 2022-04-02 14:56 | Outpatient (BNVA) | payer OTHER, SELFPAY | PROVIDERS: PCP Emergency Medicine Emergency Medical Services; Visit Provider Urology | DX: N40.1 Benign prostatic hyperplasia with lower urinary tract symptoms (principal) | CPT/HCPCS: 51741; 51798; 99213 ==

== ENCOUNTER → 2022-04-04 15:54 | Outpatient (BNVA) | payer OTHER, SELFPAY | PROVIDERS: PCP Emergency Medicine Emergency Medical Services; Visit Provider Urology | DX: N40.1 Benign prostatic hyperplasia with lower urinary tract symptoms (principal) | CPT/HCPCS: 81003 ==

== ENCOUNTER 2022-06-11 12:37 | Emergency (ER) | payer OTHER, SELFPAY ==
[2022-06-11 13:17] VITALS: BP 113/65; PULSE 74; RESP 16; TEMP 36.7; O2SAT 98
[2022-06-11 14:19] VITALS: PULSE 61; RESP 16; O2SAT 96
[2022-06-11 14:48] LABS: Basophils % 0.5 %; Eosinophils # 0.1 10^3/uL (0.0-0.8); Eosinophils % 1.2 %; Hematocrit 43.2 % (42.0-52.0); Hemoglobin 14.2 g/dL (11.7-16.6); Lymphocytes # 1.1 10^3/uL (0.8-4.8); Lymphocytes % 16.4 %; Mean Corpuscular HGB Conc 32.9 g/dL (30.0-36.0); Mean Corpuscular Hemoglobin 29.6 pg (28.0-34.0); Mean Platelet Volume 9.8 fL (7.4-10.4); Monocytes # 0.4 10^3/uL (0.2-0.9); Monocytes % 6.7 %; Neutrophils % 74.9 %; Nucleated Red Blood Cells % 0 %; Platelet Count 194 10^3/cmm (130-400); Red Cell Distribution Width 13.2 % (12.1-15.1); White Blood Count 6.4 10^3/uL (4.0-10.0)
[2022-06-11 15:19] LABS: Alanine Aminotransferase 26 U/L (0-41); Albumin Level 4.3 g/dL (3.5-5.2); Alkaline Phosphatase 85 U/L (40-130); Anion Gap 11.2 (5-19); Aspartate Amino Transferase 17 U/L (0-40); Blood Urea Nitrogen 15 mg/dL (8-23); Calcium 9.2 mg/dL (8.5-10.5); Carbon Dioxide 32 mmol/L (22-29); Chloride 99 mmol/L (98-107); Globulin 2.7 g/dL (1.3-4.6); Glucose 103 mg/dL (65-115); Osmolality Calculated 287 mOsm/kg (285-295); Potassium 4.2 mmol/L (3.5-5.1); Sodium 138 mmol/L (136-145); Total Bilirubin 0.4 mg/dL (0.15-1.2)
[2022-06-11 16:21] VITALS: BP 130/74; PULSE 61; O2SAT 97
--- NOTE | 2022-06-11 16:21 | PC.NURSE ---
WHILE WITH PT IN LOBBY PT IS IN NAD.
--- NOTE | 2022-06-11 18:06 | PC.NURSE ---
CALL TO LOBBY NO ANSWER
--- NOTE | 2022-06-11 18:23 | PC.NURSE ---
called to lobby no answer.
== END 2022-06-11 18:24 | disposition left against medical advice (07) ==
PROVIDERS: Emergency Medicine; Emergency Provider Family Medicine; PCP Emergency Medicine Emergency Medical Services
DX: Z53.21 Procedure and treatment not carried out due to patient leaving prior to being seen by health care provider (principal)
CPT/HCPCS: 36415; 80053; 85025; 99283

== ENCOUNTER 2022-06-25 03:00 | Emergency (ER) | payer OTHER, SELFPAY ==
[2022-06-25 03:02] VITALS: BP 176/79; PULSE 101; RESP 18; TEMP 36.6; O2SAT 98; BMI 24.4
--- NOTE | 2022-06-25 03:40 | CTR_ITS ---
PROCEDURE INFORMATION: Exam: CT Chest With Contrast; Diagnostic Exam date and time: 06/25/2022 4:08 AM Age: 71 years old Clinical indication: Injury or trauma; Fall; Generalized; Blunt trauma (contusions or hematomas); Prior surgery; Surgery date: 6+ months; Surgery type: Ans[place], hernia repair; Additional info: Fall >3ft right flank pain TECHNIQUE: Imaging protocol: Diagnostic computed tomography of the chest with contrast. Radiation optimization: All CT scans at this facility use at least one of these dose optimization techniques: automated exposure control; mA and/or kV adjustment per patient size (includes targeted exams where dose is matched to clinical indication); or iterative reconstruction. Contrast material: OMNI 350; Contrast volume: 100 ml; Contrast route: INTRAVENOUS (IV); COMPARISON: CT chest w con* [id number] 04/26/2021 8:42 AM RADIATION DOSE METRICS: Total DLP (mGy-cm): 779.45 FINDINGS: Lungs: Bibasilar atelectasis. Pleural spaces: Unremarkable. No pneumothorax. No pleural effusion. Heart: Cardiomegaly. Lymph nodes: Unremarkable. No enlarged lymph nodes. Vasculature: Unremarkable. No aortic aneurysm. Bones/joints: Acute nondisplaced right lateral 7th through 10th rib fractures. Soft tissues: Unremarkable. PROCEDURE INFORMATION: Exam: CT Abdomen And Pelvis With Contrast Exam date and time: 06/25/2022 4:08 AM Age: 71 years old Clinical indication: Injury or trauma; Fall; Generalized; Blunt trauma (contusions or hematomas); Prior surgery; Surgery date: 6+ months; Surgery type: Ansley, hernia repair; Additional info: Fall >3ft right flank pain TECHNIQUE: Imaging protocol: Computed tomography of the abdomen and pelvis with contrast. Radiation optimization: All CT scans at this facility use at least one of these dose optimization techniques: automated exposure control; mA and/or kV adjustment per patient size (includes targeted exams where dose is matched to clinical indication); or iterative reconstruction. Contrast material: OMNI 350; Contrast volume: 100 ml; Contrast route: INTRAVENOUS (IV); COMPARISON: CT abdomen pelvis w con* [id number] 04/27/2021 8:37 AM RADIATION DOSE METRICS: Total DLP (mGy-cm): 779.45 FINDINGS: Liver: Subcentimeter low-density lesions in the liver are too small to characterize, though statistically benign. Gallbladder and bile ducts: Cholecystectomy. Pancreas: Normal. No ductal dilation. Spleen: Calcified splenic granulomas. Adrenal glands: Normal. No mass. Kidneys and ureters: Normal. No hydronephrosis. Stomach and bowel: Moderate colonic stool burden. No bowel obstruction. Appendix: No evidence of appendicitis. Intraperitoneal space: Unremarkable. No free air. No significant fluid collection. Vasculature: Mild burden of atherosclerotic plaque in the abdominal aorta and branch vessels. No aneurysm. Lymph nodes: Unremarkable. No enlarged lymph nodes. Urinary bladder: Unremarkable as visualized. Reproductive: Prostatomegaly. Bones/joints: Unremarkable. No acute fracture. Soft tissues: Small fat containing right inguinal hernia. CT/CT chest abd pel w con* IMPRESSION: Acute nondisplaced right lateral 7th through 10th rib fractures. IMPRESSION: No acute findings.
--- NOTE | 2022-06-25 03:40 | CTR_ITS ---
PROCEDURE INFORMATION: Exam: CT Head Without Contrast Exam date and time: 06/25/2022 4:05 AM Age: 71 years old Clinical indication: Injury or trauma; Fall; Blunt trauma (contusions or hematomas); Consciousness not specified TECHNIQUE: Imaging protocol: Computed tomography of the head without contrast. Radiation optimization: All CT scans at this facility use at least one of these dose optimization techniques: automated exposure control; mA and/or kV adjustment per patient size (includes targeted exams where dose is matched to clinical indication); or iterative reconstruction. COMPARISON: CT head wo con* [id number] 05/05/2021 12:29 PM RADIATION DOSE METRICS: Total DLP (mGy-cm): 974.44 FINDINGS: Brain: No acute hemorrhage identified. No large territorial areas of hypoattenuation concerning for ischemic infarct identified. No intracranial mass effect. Cerebral ventricles: The ventricles are within normal limits. Paranasal sinuses: The visualized sinuses are unremarkable. Mastoid air cells: The visualized mastoid air cells are well aerated. Bones/joints: The osseous structures are intact. Soft tissues: Unremarkable. CT/CT head wo con* [id number] IMPRESSION: No acute intracranial abnormality.
--- NOTE | 2022-06-25 03:47 | ED_ITS ---
HPI - Back Pain/Injury General: Chief Complaint: Back Pain/Injury Stated Complaint: back pain Time Seen by Provider: 06/25/22 03:05 Source: patient History of Present Illness: 71-year-old male arrives by ambulance. He complains of right flank pain. He says that he went out to get something to eat around 8 PM, and came back to his house around 830. At that point he fell off the porch he says, which is greater than 3 feet. He notes that he hurt his rig ht side at that point. He was able to get back in his house, and did some work around the house, but pain steadily increased to the right flank. Pain increased to the point that he could not move off of his couch this morning. He called an ambulance because of this. There is no numbness or tingling. There is no loss of control of his bowel or bladder function. The pain does not radiate into his legs. He notes increased pain with deep breathing to the right flank. MD elicited complaint: back pain, back injury and fall Pertinent past history: recent trauma Onset (ago): hour(s) Timing: constant and progressively worsening Severity: moderate Similar Symptoms Previously: No Quality: sharp Location: right flank Radiation: none Exacerbating factors: movement and deep breaths Relieving factors: immobilization Associated symptoms: Reports chills and difficulty walking; Deny abdominal pain, change in bowel habits, fecal incontinence, fever(s), numbness, tingling/numbness/burning, vomiting or weakness Review of Systems Const: Reports: chills; Denies: fever(s) ENMT: Denies: throat pain Card: Denies: chest pain or palpitations Resp: Reports: pain on inspiration; Denies: dyspnea, productive cough or non-productive cough GI: Denies: abdominal pain, vomiting, fecal incontinence or change in bowel habits : Reports: flank pain; Denies: difficulty urinating Musc: Reports: back pain Neuro: Reports: difficulty walking; Denies: headache(s) [facility] ED PFSH: Medical History BPH loc w urin obs/LUTS Right inguinal hernia Schizo-affective schizophrenia Surgical History History of laparoscopic cholecystectomy Hx of umbilical hernia repair Family History Mother , at age 70 Cancer Bone Father , at age 72 Colon cancer Grandmother , age unknown Diabetes Social History Smoking and tobacco status: current some day smoker Alcohol intake: current Alcohol intake frequency: few times a week Lives independently: Yes Marital status: Single service: Yes Current occupational status: retired and disabled History of recent travel: No Physical Exam Const: GENERAL APPEARANCE: cooperative and frail appearing (Mildly); not comfortable and not ill appearing HENMT: COMMON NORMALS: normocephalic, hearing grossly normal bilaterally and Normal external nose present HEAD & SCALP: normocephalic FACE & SINUS: normal facial exam and face symmetric NOSE: Normal external nose present Eye: COMMON NORMALS: Equal, round and reactive pupils present and EOMs intact bilaterally PUPIL: Yes Equal, round and reactive pupils present Neck/C-Spine: GENERAL: Yes trachea midline Chest: CHEST: Yes Symmetrical chest wall rise Resp: COMMON NORMALS: normal respiratory effort and clear to auscultation bilaterally EFFORT & INSPECTION: No paradoxical thoraco-abdominal movements and No segmental paradoxical chest wall movement AUSCULTATION: clear to auscultation bilaterally Cardio: COMMON NORMALS: regular rate and regular rhythm RATE: regular rate RHYTHM: regular rhythm GI: COMMON NORMALS: Normal to inspection, nondistended, normoactive bowel sounds present, Soft to palpation and non-tender PALPATION: Yes Soft to palpation : BLADDER/KIDNEY EXAM: Yes CVA tenderness on the right (Significant) Back/Pelvis: GENERAL BACK: Yes CVA tenderness Extremity: COMMON NORMALS: no pedal edema NARRATIVE EXTREMITY EXAM: Nontraumatic Neuro: ARNIE COMA SCALE: document GCS findings Ernest coma scale eye opening: Spontaneous Arnie coma scale verbal response: Orientated Ernest coma scale motor response: Obey commands Arnie coma scale total score: 15 Psych: COMMON NORMALS: speech normal ATTITUDE: Yes calm ACTIVITY/MOTOR BEHAVIOR: Yes psychomotor slowing SPEECH: Yes normal speech MOOD & AFFECT: Yes Blunted affect present THOUGHT PROCESS: disorganized (Mildly) THOUGHT CONTENT: No Suicidality present Skin: COMMON NORMALS: no rashes or lesions noted GENERAL SKIN EXAM: no rashes or lesions noted Course Vital Signs: Vital signs: Vital Signs Temperature 97.9 F 06/25/22 03:02 Pulse Rate 87 06/25/22 05:07 Respiratory Rate 15 06/25/22 05:07 Blood Pressure 147/60 06/25/22 05:07 Pulse Oximetry 96 06/25/22 05:07 Oxygen Delivery Me thod 06/25/22 03:02 MDM - Back Pain/Injury Medical Decision Making Significant right flank pain and tenderness and a 71-year-old gentleman who is fallen more than 3 feet by history. CBC shows a white blood cell count of 12.5. It and BMP are otherwise unremarkable. Liver enzymes are nonelevated. Urinalysis is negative. Head CT is negative. CT of the chest abdomen pelvis reveals nondisplaced right lateral rib fractures of ribs 7 through 10, explaining his symptoms. No underlying pulmonary contusion. No pneumothorax, or liver injury. His injury is 9 hours old at this point. Without evidence of pulmonary contusion by now, he is less likely to develop it. He is not requiring any oxygen. Room air saturations are 94 to 95%. He will be allowed home with pain control. He will need incentive spirometry. Labs 06/25/22 03:55 06/25/22 03:55 Radiology Impressions Chest/Abdomen/Pelvis CT 06/25/22 03:40 IMPRESSION: Acute nondisplaced right lateral 7th through 10th rib fractures. IMPRESSION: No acute findings. Head CT 06/25/22 03:40 IMPRESSION: No acute intracranial abnormality. Laboratory Results WBC 12.5 10^3/uL (4.0-10.0) H 06/25/22 03:55 RBC 4.65 10^6/uL (4.1-5.3) 06/25/22 03:55 Hgb 13.7 g/dL (11.7-16.6) 06/25/22 03:55 Hct 42.2 % (42.0-52.0) 06/25/22 03:55 MCV 90.8 fl (80-94) 06/25/22 03:55 MCH 29.5 pg (28.0-34.0) 06/25/22 03:55 MCHC 32.5 g/dL (30.0-36.0) 06/25/22 03:55 RDW 12.9 % (12.1-15.1) 06/25/22 03:55 Plt Count 187 10^3/cmm (130-400) 06/25/22 03:55 MPV 10.3 fL (7.4-10.4) 06/25/22 03:55 Neut % (Auto) 82.2 % 06/25/22 03:55 Lymph % (Auto) 10.3 % 06/25/22 03:55 [place] % (Auto) 6.6 % 06/25/22 03:55 Eos % (Auto) 0.3 % 06/25/22 03:55 Baso % (Auto) 0.2 % 06/25/22 03:55 Neut # (Auto) 10.23 10^3/uL (1.8-7.7) H 06/25/22 03:55 Lymph # (Auto) 1.3 10^3/uL (0.8-4.8) 06/25/22 03:55 [place] # (Auto) 0.8 10^3/uL (0.2-0.9) 06/25/22 03:55 Eos # (Auto) 0.0 10^3/uL (0.0-0.8) 06/25/22 03:55 Baso # (Auto) 0.0 10^3/uL (0.0-0.1) 06/25/22 03:55 Nucleated RBC % (auto) 0 % 06/25/22 03:55 Nucleated RBCs # 0.0 /100WBC 06/25/22 03:55 Sodium 137 mmol/L (136-145) 06/25/22 03:55 Potassium 3.8 mmol/L (3.5-5.1) 06/25/22 03:55 Chloride 98 mmol/L (98-107) 06/25/22 03:55 Carbon Dioxide 29 mmol/L (22-29) 06/25/22 03:55 Anion Gap 13.8 (5-19) 06/25/22 03:55 BUN 23 mg/dL (8-23) 06/25/22 03:55 Creatinine 0.7 mg/dL (0.7-1.2) 06/25/22 03:55 GFR Calculation Not Reportable 06/25/22 03:55 Glucose 152 mg/dL (65-115) H 06/25/22 03:55 Calculated Osmolality 291 mOsm/kg (285-295) 06/25/22 03:55 Calcium 9.3 mg/dL (8.5-10.5) 06/25/22 03:55 Total Bilirubin 0.3 mg/dL (0.15-1.2) 06/25/22 03:55 AST 29 U/L (0-40) 06/25/22 03:55 ALT 31 U/L (0-41) 06/25/22 03:55 Alkaline Phosphatase 104 U/L (40-130) 06/25/22 03:55 Total Protein 7.0 g/dL (6.6-8.7) 06/25/22 03:55 Albumin 4.3 g/dL (3.5-5.2) 06/25/22 03:55 Globulin 2.7 g/dL (1.3-4.6) 06/25/22 03:55 Urine Color Yellow (Yellow) 06/25/22 04:40 Urine Appearance Sl hazy (CLEAR) A 06/25/22 04:40 Urine pH 8 (5-7) H 06/25/22 04:40 Ur Specific [place] 1.010 (1.005-1.030) 06/25/22 04:40 Urine Protein Neg (Negative) 06/25/22 04:40 Urine Glucose (UA) Norm (Normal) 06/25/22 04:40 Urine Ketones Negative (Negative) 06/25/22 04:40 Urine Blood Neg (Negative) 06/25/22 04:40 Urine Nitrate Negative (Negative) 06/25/22 04:40 Urine Bilirubin Neg (Negative) 06/25/22 04:40 Prot Sulfosalicylic Acd Negative (Negative) 06/25/22 04:40 Urine Urobilinogen Neg mg/dL (Negative) 06/25/22 04:40 Ur Leukocyte Esterase Negative (Negative) 06/25/22 04:40 Discharge Plan Discharge Patient Disposition: Home Clinical Impression: Multiple rib fractures Condition: Stable Prescriptions: New oxycodone-acetaminophen 5-325 mg tablet 1 tab PO Q8H PRN (Reason: pain) Qty: 10 0RF No Action aripiprazole IM .MONTHLY Rx Instructions: .MONTHLY metformin 500 mg tablet 500 mg PO DAILY amitriptyline 25 mg tablet 25 mg PO DAILY mecobalamin (vitamin B12) 5,000 mcg tablet,disintegrating PO DAILY magnesium oxide 200 mg magnesium tablet 200 mg PO DAILY Rx Instructions: 190 mg daily Ultra CoQ10 75 mg capsule 75 mg PO DAILY lecithin 1,200 mg capsule 1,200 mg PO .2 daily Rx Instructions: give with meal/snack Digestive Advantage Probio-Pre 400 million cell tablet,chewable PO .500 million cfu PRN (Reason: daily) vitamin B complex Tablet 1 tab PO DAILY milk thistle 175 mg tablet 175 mg PO DAILY Rx Instructions: give with meal/snack kidney cleanse support PO DAILY omega xl PO BID turmeric curcum PO .3000 mg daily liver cleanse support PO .2 daily melatonin 12 mg tablet PO .nightly superfruit gummies PO .2 nightly ammonium lactate 12 % lotion 1 applic topical DAILY Qty: 225 3RF ciprofloxacin HCl 500 mg tablet 500 mg PO BID Qty: 60 0RF sertraline 100 mg Tablet 200 mg PO DAILY amlodipine 5 mg Tablet 5 mg PO DAILY pantoprazole 20 mg Tablet,Delayed Release (Dr/Ec) 20 mg PO DAILY bisacodyl 5 mg Tablet,Delayed Release (Dr/Ec) 5 mg PO DAILY Flomax 0.4 mg capsule 0.8 mg PO .qhs Qty: 30 0RF Discharge Orders: Discharge ED (Routine); Ordered 06/25/22 Ordered By: Joaquim Gutierrez Referrals: Chu Ramsey DO [Primary Care Provider] - 4-7 days Patient Instructions: Rib Fracture (ED), Opioid Safety, Pain Management Activity Restrictions/Additional Instructions: Pain medication for severe pain. You may take a Tylenol or ibuprofen instead. Return for worsening pain despite treatment, worsening shortness of breath, fever greater than 100, significant cough, blood in your sputum, any other concerning symptoms. Coding Level of Care Code ED Bridge Expert for Alex Fwedy Exam Comprehensive
[2022-06-25 03:54] VITALS: RESP 18
[2022-06-25] MEDS: ondansetron 2 mg/ML SDV 2 mL 4 MG IVP (03:54)
[2022-06-25] MEDS: morphine 4 mg/mL SDV 1 mL IVP (03:54)
[2022-06-25 04:07] LABS: Basophils % 0.2 %; Eosinophils % 0.3 %; Hematocrit 42.2 % (42.0-52.0); Hemoglobin 13.7 g/dL (11.7-16.6); Lymphocytes # 1.3 10^3/uL (0.8-4.8); Lymphocytes % 10.3 %; Mean Corpuscular HGB Conc 32.5 g/dL (30.0-36.0); Mean Corpuscular Hemoglobin 29.5 pg (28.0-34.0); Mean Corpuscular Volume 90.8 fl (80-94); Mean Platelet Volume 10.3 fL (7.4-10.4); Monocytes # 0.8 10^3/uL (0.2-0.9); Monocytes % 6.6 %; Neutrophils # 10.23 10^3/uL (1.8-7.7); Neutrophils % 82.2 %; Nucleated Red Blood Cells % 0 %; Platelet Count 187 10^3/cmm (130-400); Red Blood Count 4.65 10^6/uL (4.1-5.3); Red Cell Distribution Width 12.9 % (12.1-15.1); White Blood Count 12.5 10^3/uL (4.0-10.0)
[2022-06-25 04:22] LABS: Alanine Aminotransferase 31 U/L (0-41); Albumin Level 4.3 g/dL (3.5-5.2); Alkaline Phosphatase 104 U/L (40-130); Anion Gap 13.8 (5-19); Aspartate Amino Transferase 29 U/L (0-40); Blood Urea Nitrogen 23 mg/dL (8-23); Calcium 9.3 mg/dL (8.5-10.5); Carbon Dioxide 29 mmol/L (22-29); Chloride 98 mmol/L (98-107); Globulin 2.7 g/dL (1.3-4.6); Glucose 152 mg/dL (65-115); Osmolality Calculated 291 mOsm/kg (285-295); Potassium 3.8 mmol/L (3.5-5.1); Sodium 137 mmol/L (136-145); Total Bilirubin 0.3 mg/dL (0.15-1.2)
[2022-06-25 04:55] LABS: Add Urine Microscopic? NO; Charge for UA Resulting for Rev
[2022-06-25 05:07] VITALS: BP 147/60; PULSE 87; RESP 15; O2SAT 96
[2022-06-25 05:09] LABS: Bilirubin Urine Neg (Negative); Blood Urine Neg (Negative); Glucose Urine UA Norm (Normal); Ketones Urine Negative (Negative); Leukocyte Esterase Urine Negative (Negative); Nitrate Urine Negative (Negative); Protein Urine Neg (Negative); Sulfosalicylic Acid Urine Negative (Negative); Urine Appearance SL Hazy (CLEAR); Urine Color Yellow (Yellow); Urobilinogen Urine Neg (Negative); pH Urine 8 (5-7)
[2022-06-25 06:00] VITALS: BP 147/60; PULSE 93; RESP 16; O2SAT 95
== END 2022-06-25 05:55 | disposition home or self-care (01) ==
PROVIDERS: Emergency Provider Emergency Medicine; PCP Emergency Medicine Emergency Medical Services
DX: S22.41XA Multiple fractures of ribs, right side, initial encounter for closed fracture (principal); W17.89XA Other fall from one level to another, initial encounter
CPT/HCPCS: 70450; 71260; 74177; 80053; 81003; 85025; 96374; 96375; 99285; J2270; J2405; Q9967

== ENCOUNTER 2022-06-25 23:40 | Emergency (ER) | payer OTHER, SELFPAY ==
[2022-06-25 23:42] VITALS: BP 162/79; PULSE 96; RESP 16; TEMP 36.9; O2SAT 93; BMI 23.7
--- NOTE | 2022-06-25 23:48 | XRR_ITS ---
PROCEDURE INFORMATION: Exam: XR Chest Exam date and time: 06/25/2022 11:50 PM Age: 71 years old Clinical indication: Prior surgery; Surgery type: Gb; Patient HX: C/O mid back pain. Patient fell from porch earlier today and had CT scan which revealed RT 7th-10th rib fractures. ; Additional info: Cp TECHNIQUE: Imaging protocol: Radiologic exam of the chest. Views: 1 view. COMPARISON: CT chest abd pel w con* 06/25/2022 4:08 AM FINDINGS: Lungs: Mild right basilar atelectasis and/or infiltrate and/or effusion. Pleural spaces: Unremarkable. No pleural effusion. No pneumothorax. Heart/Mediastinum: Unremarkable. No cardiomegaly. Bones/joints: Fractured right lateral rib fractures. Mild dextroscoliosis. XR/XR chest 1V portable [id number] IMPRESSION: 1. Fractured right lateral rib fractures. 2. Mild right basilar atelectasis and/or infiltrate and/or effusion.
[2022-06-25] MEDS: HYDROcodone-acetaminophen 5-325 mg Tablet 1 TAB PO (23:56)
--- NOTE | 2022-06-25 23:56 | ED_ITS ---
HPI - Back Pain/Injury General: Chief Complaint: Back Pain/Injury Stated Complaint: back pain Time Seen by Provider: 06/25/22 23:45 Source: patient and EMS Mode of arrival: EMS Limitations: no limitations History of Present Illness: 71-year-old male who had a fall yesterday he did have right-sided rib fracture from the fall he states he been having right lateral rib pain today he states he has tried Tylenol with no improvement in his pain he denies any headache denies any shortness of breath denies any cough Associated symptoms: Deny abdominal pain, chills, dysuria, fever(s), nausea or vomiting Review of Systems Const: Denies: fever(s), chills, body aches or change in appetite Eyes: Denies: blurry vision or eye discomfort ENMT: Denies: throat pain or dental pain Card: Reports: chest pain Resp: Denies: dyspnea GI: Denies: abdominal pain, nausea, vomiting or diarrhea : Denies: dysuria Musc: Denies: neck pain or back pain Skin/Breast: Denies: rash Neuro: Denies: headache(s) Psych: Denies: depression Royce/Lymph: Denies: easy bruising All/Imm: Denies: urticaria PFSH ED PFSH: Medical History BPH loc w urin obs/LUTS Right inguinal hernia Schizo-affective schizophrenia Surgical History History of laparoscopic cholecystectomy Hx of umbilical hernia repair Family History Mother , at age 70 Cancer Bone Father , at age 72 Colon cancer Grandmother , age unknown Diabetes Social History Smoking and tobacco status: current some day smoker Alcohol intake: current Alcohol intake frequency: few times a week Lives independently: Yes Marital status: Single service: Yes Current occupational status: retired and disabled History of recent travel: No Physical Exam Const: COMMON NORMALS: no acute distress, patient oriented x3 and healthy appearing HENMT: COMMON NORMALS: normocephalic and atraumatic HEAD & SCALP: normocephalic and atraumatic Eye: COMMON NORMALS: Equal, round and reactive pupils present and EOMs intact bilaterally PUPIL: Yes Equal, round and reactive pupils present Neck/C-Spine: COMMON NORMALS: full ROM and supple Chest: COMMONS NORMALS: normal inspection of the chest OTHER: right chest wall tenderness Resp: COMMON NORMALS: normal respiratory effort, No retractions, No use of accessory muscles and clear to auscultation bilaterally AUSCULTATION: clear to auscultation bilaterally Cardio: COMMON NORMALS: regular rate, regular rhythm and No murmurs present (Cardio) RATE: regular rate RHYTHM: regular rhythm GI: COMMON NORMALS: Normal to inspection, nondistended, normoactive bowel sounds present, Soft to palpation, non-tender and no masses PALPATION: Yes Soft to palpation Extremity: COMMON NORMALS: normal to inspection and full ROM Neuro: COMMON NORMALS: patient oriented x3, moves all extremities and no focal motor deficits Psych: COMMON NORMALS: mental status grossly normal, Normal thought process present and cooperative THOUGHT PROCESS: Normal thought process present Skin: COMMON NORMALS: no rashes or lesions noted and no wounds GENERAL SKIN EXAM: no rashes or lesions noted Course Vital Signs: Vital signs: Vital Signs Temperature 98.4 F 06/25/22 23:42 Pulse Rate 74 06/26/22 00:56 Respiratory Rate 16 06/26/22 00:56 Blood Pressure 162/79 06/26/22 00:56 Pulse Oximetry 100 06/26/22 00:56 Oxygen Delivery Me thod 06/25/22 23:42 MDM - Back Pain/Injury Medical Decision Making Patient presents here with right-sided chest pain likely from the rib fracture from his fall he does have a slight effusion we will start him on antibiotics he is to use his spirometer he is to return if worsening he understands agrees to plan. Labs Radiology Impressions Chest X-Ray 06/25/22 23:48 IMPRESSION: 1. Fractured right lateral rib fractures. 2. Mild right basilar atelectasis and/or infiltrate and/or effusion. Discharge Plan Discharge Patient Disposition: Home Clinical Impression: Multiple rib fractures Condition: Stable Prescriptions: New doxycycline hyclate 100 mg tablet 100 mg PO BID 7 Days Qty: 14 0RF No Action aripiprazole IM .MONTHLY Rx Instructions: .MONTHLY metformin 500 mg tablet 500 mg PO DAILY amitriptyline 25 mg tablet 25 mg PO DAILY mecobalamin (vitamin B12) 5,000 mcg tablet,disintegrating PO DAILY magnesium oxide 200 mg magnesium tablet 200 mg PO DAILY Rx Instructions: 190 mg daily Ultra CoQ10 75 mg capsule 75 mg PO DAILY lecithin 1,200 mg capsule 1,200 mg PO .2 daily Rx Instructions: give with meal/snack Digestive Advantage Probio-Pre 400 million cell tablet,chewable PO .500 million cfu PRN (Reason: daily) vitamin B complex Tablet 1 tab PO DAILY milk thistle 175 mg tablet 175 mg PO DAILY Rx Instructions: give with meal/snack kidney cleanse support PO DAILY omega xl PO BID turmeric curcum PO .3000 mg daily liver cleanse support PO .2 daily melatonin 12 mg tablet PO .nightly superfruit gummies PO .2 nightly ammonium lactate 12 % lotion 1 applic topical DAILY Qty: 225 3RF ciprofloxacin HCl 500 mg tablet 500 mg PO BID Qty: 60 0RF sertraline 100 mg Tablet 200 mg PO DAILY amlodipine 5 mg Tablet 5 mg PO DAILY pantoprazole 20 mg Tablet,Delayed Release (Dr/Ec) 20 mg PO DAILY bisacodyl 5 mg Tablet,Delayed Release (Dr/Ec) 5 mg PO DAILY Flomax 0.4 mg capsule 0.8 mg PO .qhs Qty: 30 0RF oxycodone-acetaminophen 5-325 mg tablet 1 tab PO Q8H PRN (Reason: pain) Qty: 10 0RF Discharge Orders: Discharge ED (Routine); Ordered 06/26/22 Ordered By: Gelacio Fishman Referrals: Chu Ramsey DO [Primary Care Provider] - Discharge Diet: Advance as tolerated Discharge Activity: Resume usual activity Patient Instructions: Rib Fracture (ED) Coding Level of Care Code ED Commercial Lease Administrator for Jossg Fwd Exam Comprehensive
[2022-06-26 00:56] VITALS: BP 162/79; PULSE 74; RESP 16; O2SAT 100
[2022-06-26] MEDS: doxycycline 100 mg Tablet PO (00:56)
== END 2022-06-26 00:56 | disposition home or self-care (01) ==
PROVIDERS: Emergency Provider Emergency Medicine; PCP Emergency Medicine Emergency Medical Services
DX: S22.41XA Multiple fractures of ribs, right side, initial encounter for closed fracture (principal); W19.XXXA Unspecified fall, initial encounter; J90 Pleural effusion, not elsewhere classified
CPT/HCPCS: 71045; 99283

== ENCOUNTER → 2022-07-18 07:54 | Outpatient (BNVA) | payer OTHER, SELFPAY | PROVIDERS: PCP Emergency Medicine Emergency Medical Services; Visit Provider Podiatrist Foot & Ankle Surgery | DX: E11.42 Type 2 diabetes mellitus with diabetic polyneuropathy (principal); M76.821 Posterior tibial tendinitis, right leg; M76.822 Posterior tibial tendinitis, left leg; Z79.84 Long term (current) use of oral hypoglycemic drugs | CPT/HCPCS: 99213 ==

== ENCOUNTER 2022-07-31 09:58 | Emergency (ER) | payer OTHER, SELFPAY ==
[2022-07-31 10:00] VITALS: BP 151/77; PULSE 86; RESP 16; TEMP 36.7; O2SAT 95; BMI 22.3
--- NOTE | 2022-07-31 10:12 | ED_ITS ---
HPI - Back Pain/Injury General: Chief Complaint: Back Pain/Injury Stated Complaint: RIB PAIN Time Seen by Provider: 07/31/22 10:01 Source: patient Mode of arrival: ambulatory History of Present Illness: 71-year-old male comes to clinic right-sided rib pain he states she fell earlier this month broke ribs however review of the rec ord shows it was actually back in June. No recurrent fall since then he denies any fever sweats chills vomiting or diarrhea no other chest pain. Pain worse when he takes a deep breath. MD elicited complaint: fall (5 weeks ago) Onset (ago): week(s) (5) Timing: intermittent Severity: moderate Similar Symptoms Previously: Yes Quality: sharp Exacerbating factors: movement, coughing/sneezing and other (Palpation) Context: fall (Previous rib fractures in June 2022) Associated symptoms: Deny abdominal pain, arthralgias, chills, change in bowel habits, difficulty walking, dysuria, fatigue, fecal incontinence, fever(s), hematuria, myalgias, nausea, numbness, syncope, tingling/numbness/burning, urinary frequency, urinary urgency, vomiting or weakness Review of Systems Const: Denies: fever(s), chills, fatigue or malaise ENMT: Denies: throat pain, ear or mastoid pain, nasal discharge or nasal congestion Card: Denies: chest pain, palpitations, irregular heart rhythm or syncope Resp: Denies: dyspnea, productive cough or non-productive cough GI: Denies: abdominal pain, nausea, vomiting, fecal incontinence or change in bowel habits : Denies: dysuria, urinary frequency, urinary urgency or hematuria Musc: Denies: neck pain or back pain Skin/Breast: Denies: rash or pruritus Neuro: Denies: difficulty walking PFSH ED PFSH: Medical History BPH loc w urin obs/LUTS Right inguinal hernia Schizo-affective schizophrenia Surgical History History of laparoscopic cholecystectomy Hx of umbilical hernia repair Family History Mother , at age 70 Cancer Bone Father , at age 72 Colon cancer Grandmother , age unknown Diabetes Social History Smoking and tobacco status: current some day smoker Alcohol intake: current Alcohol intake frequency: few times a week Lives independently: Yes Marital status: Single service: Yes Current occupational status: retired and disabled History of recent travel: No Physical Exam Const: COMMON NORMALS: no acute distress GENERAL APPEARANCE: cooperative and comfortable ORIENTATION/CONSCIOUSNESS: Yes awake, Yes oriented to person, Yes oriented to place and Yes oriented to time HENMT: COMMON NORMALS: normocephalic, atraumatic and hearing grossly normal bilaterally HEAD & SCALP: normocephalic and atraumatic Chest: OTHER: Chest pain reproducible with palpation on the posterior right aspect of the chest in the area where the previous rib fractures were. Resp: COMMON NORMALS: normal respiratory effort, No retractions, No use of accessory muscles and clear to auscultation bilaterally AUSCULTATION: clear to auscultation bilaterally Cardio: COMMON NORMALS: regular rate, regular rhythm and No murmurs present (Cardio) RATE: regular rate RHYTHM: regular rhythm GI: COMMON NORMALS: Soft to palpation and No hepatosplenomegaly present AUSCULTATION: Yes normoactive bowel sounds PALPATION: Yes Soft to palpation, No Tenderness to palpation present (GI), No Guarding due to palpation present (GI) and Yes No hepatosplenomegaly present Extremity: COMMON NORMALS: normal to inspection, capillary refill normal, no clubbing, cyanosis or edema, no calf tenderness and no pedal edema Neuro: SENSORIUM/ORIENTATION: Yes oriented to person, Yes oriented to place and Yes oriented to time Skin: COMMON NORMALS: no rashes or lesions noted GENERAL SKIN EXAM: no rashes or lesions noted Course Vital Signs: Vital signs: Vital Signs Temperature 98.1 F 07/31/22 10:00 Pulse Rate 80 07/31/22 10:29 Respiratory Rate 16 07/31/22 10:00 Blood Pressure 151/77 07/31/22 10:29 Pulse Oximetry 96 07/31/22 10:29 Oxygen Delivery Me thod 07/31/22 10:29 MDM - Back Pain/Injury Medical Decision Making Rib fractures mildly displaced on chest x-ray today. Call and and discussed Dr. Rodrigues he would recommend just observing for now patient given diclofenac. If pain persists can have follow-up with his primary care refer to Ortho or thoracic surgery if has persistent problem in 6 to 8 weeks. Medical Records I reviewed the patient's medical records. Labs I reviewed the patient's lab results. 07/31/22 10:26 07/31/22 10:26 Radiology Impressions Chest X-Ray 07/31/22 10:14 IMPRESSION: 1. Mild bibasal plaque atelectasis. No acute cardiopulmonary process identified. 2. Several displaced recent appearing right rib fractures as previously describ ed. Laboratory Results WBC 9.0 10^3/uL (4.0-10.0) 07/31/22 10:26 RBC 4.64 10^6/uL (4.1-5.3) 07/31/22 10:26 Hgb 13.8 g/dL (11.7-16.6) 07/31/22 10: Hct 42.8 % (42.0-52.0) 07/31/22 10:26 MCV 92.2 fl (80-94) 07/31/22 10:26 MCH 29.7 pg (28.0-34.0) 07/31/22 10:26 MCHC 32.2 g/dL (30.0-36.0) 07/31/22 10:26 RDW 13.3 % (12.1-15.1) 07/31/22 10:26 Plt Count 194 10^3/cmm (130-400) 07/31/22 10: MPV 9.9 fL (7.4-10.4) 07/31/22 10:26 Neut % (Auto) 76.4 % 07/31/22 10:26 Lymph % (Auto) 14.7 % 07/31/22 10:26 [place] % (Auto) 5.7 % 07/31/22 10:26 Eos % (Auto) 2.7 % 07/31/22 10:26 Baso % (Auto) 0.3 % 07/31/22 10:26 Neut # (Auto) 6.85 10^3/uL (1.8-7.7) 07/31/22 10:26 Lymph # (Auto) 1.3 10^3/uL (0.8-4.8) 07/31/22 10:26 [place] # (Auto) 0.5 10^3/uL (0.2-0.9) 07/31/22 10:26 Eos # (Auto) 0.2 10^3/uL (0.0-0.8) 07/31/22 10:26 Baso # (Auto) 0.0 10^3/uL (0.0-0.1) 07/31/22 10:26 Nucleated RBC % (auto) 0 % 07/31/22 10:26 Nucleated RBCs # 0.0 /100WBC 07/31/22 10:26 Sodium 136 mmol/L (136-145) 07/31/22 10:26 Potassium 4.2 mmol/L (3.5-5.1) 07/31/22 10:26 Chloride 99 mmol/L (98-107) 07/31/22 10:26 Carbon Dioxide 30 mmol/L (22-29) H 07/31/22 10:26 Anion Gap 11.2 (5-19) 07/31/22 10:26 BUN 15 mg/dL (8-23) 07/31/22 10:26 Creatinine 0.6 mg/dL (0.7-1.2) L 07/31/22 10:26 GFR Calculation Not Reportable 07/31/22 10:26 Glucose 129 mg/dL (65-115) H 07/31/22 10:26 Calculated Osmolality 285 mOsm/kg (285-295) 07/31/22 10:26 Calcium 9.2 mg/dL (8.5-10.5) 07/31/22 10:26 Total Bilirubin 0.3 mg/dL (0.15-1.2) 07/31/22 10:26 AST 20 U/L (0-40) 07/31/22 10:26 ALT 24 U/L (0-41) 07/31/22 10:26 Alkaline Phosphatase 164 U/L (40-130) H 07/31/22 10:26 Total Protein 6.7 g/dL (6.6-8.7) 07/31/22 10:26 Albumin 4.1 g/dL (3.5-5.2) 07/31/22 10:26 Globulin 2.6 g/dL (1.3-4.6) 07/31/22 10:26 Acetaminophen < 5.0 ug/mL (10-30) L 07/31/22 10:26 Discharge Plan Discharge Patient Disposition: Home Clinical Impression: 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 Condition: Stable Prescriptions: New diclofenac sodium 75 mg tablet,delayed release (DR/EC) 75 mg PO Q12H PRN (Reason: pain) Qty: 20 0RF No Action aripiprazole IM .MONTHLY Rx Instructions: .MONTHLY metformin 500 mg tablet 500 mg PO DAILY amitriptyline 25 mg tablet 25 mg PO DAILY mecobalamin (vitamin B12) 5,000 mcg tablet,disintegrating PO DAILY magnesium oxide 200 mg magnesium tablet 200 mg PO DAILY Rx Instructions: 190 mg daily Ultra CoQ10 75 mg capsule 75 mg PO DAILY lecithin 1,200 mg capsule 1,200 mg PO .2 daily Rx Instructions: give with meal/snack Digestive Advantage Probio-Pre 400 million cell tablet,chewable PO .500 million cfu PRN (Reason: daily) vitamin B complex Tablet 1 tab PO DAILY milk thistle 175 mg tablet 175 mg PO DAILY Rx Instructions: give with meal/snack kidney cleanse support PO DAILY omega xl PO BID turmeric curcum PO .3000 mg daily liver cleanse support PO .2 daily melatonin 12 mg tablet PO .nightly superfruit gummies PO .2 nightly ammonium lactate 12 % lotion 1 applic topical DAILY Qty: 225 3RF ciprofloxacin HCl 500 mg tablet 500 mg PO BID Qty: 60 0RF sertraline 100 mg Tablet 200 mg PO DAILY amlodipine 5 mg Tablet 5 mg PO DAILY pantoprazole 20 mg Tablet,Delayed Release (Dr/Ec) 20 mg PO DAILY bisacodyl 5 mg Tablet,Delayed Release (Dr/Ec) 5 mg PO DAILY Flomax 0.4 mg capsule 0.8 mg PO .qhs Qty: 30 0RF oxycodone-acetaminophen 5-325 mg tablet 1 tab PO Q8H PRN (Reason: pain) Qty: 10 0RF Discharge Orders: Discharge ED (Routine); Ordered 07/31/22 Ordered By: Mele Duckworth Referrals: Chu Ramsey DO [Primary Care Provider] - Patient Instructions: Opioid Safety, Pain Management Activity Restrictions/Additional Instructions: You were seen today for rib pain at the site of the previous fractures. On x- ray there displace and look like they are gone to nonunion. Recommend you follow-up with your primary care doctor. Case management is working on potential referral to either thoracic surgery or orthopedics. Coding Level of Care Code ED Head Of Mobile for Alex Webb
--- NOTE | 2022-07-31 10:14 | XR_ITS ---
WS: [id number] Exam: XR chest 1V portable [id number] Date/Time of Exam: 07/31/2022 10:16 AM Reason For Exam: dyspnea/cough Comparison 06/25/2022. The lungs are fully expanded. No acute infiltrates. Mild plaque atelectasis in the bilateral lung bas es. Cardiomediastinal silhouette is unremarkable for technique. Several displaced right rib fractures are again identified. No pneumothorax. XR/XR chest 1V portable [id number] IMPRESSION: 1. Mild bibasal plaque atelectasis. No acute cardiopulmonary process identified . 2. Several displaced recent appearing right rib fractures as previously describ ed.
[2022-07-31] MEDS: ketorolac 30 mg/mL INJ IVP (10:27)
[2022-07-31 10:29] VITALS: BP 151/77; PULSE 80; O2SAT 96
[2022-07-31 10:36] LABS: Basophils % 0.3 %; Eosinophils # 0.2 10^3/uL (0.0-0.8); Eosinophils % 2.7 %; Hematocrit 42.8 % (42.0-52.0); Hemoglobin 13.8 g/dL (11.7-16.6); Lymphocytes # 1.3 10^3/uL (0.8-4.8); Lymphocytes % 14.7 %; Mean Corpuscular HGB Conc 32.2 g/dL (30.0-36.0); Mean Corpuscular Hemoglobin 29.7 pg (28.0-34.0); Mean Corpuscular Volume 92.2 fl (80-94); Mean Platelet Volume 9.9 fL (7.4-10.4); Monocytes # 0.5 10^3/uL (0.2-0.9); Monocytes % 5.7 %; Neutrophils # 6.85 10^3/uL (1.8-7.7); Neutrophils % 76.4 %; Nucleated Red Blood Cells % 0 %; Platelet Count 194 10^3/cmm (130-400); Red Blood Count 4.64 10^6/uL (4.1-5.3); Red Cell Distribution Width 13.3 % (12.1-15.1)
[2022-07-31 10:55] LABS: Alanine Aminotransferase 24 U/L (0-41); Albumin Level 4.1 g/dL (3.5-5.2); Alkaline Phosphatase 164 U/L (40-130); Anion Gap 11.2 (5-19); Aspartate Amino Transferase 20 U/L (0-40); Blood Urea Nitrogen 15 mg/dL (8-23); Calcium 9.2 mg/dL (8.5-10.5); Carbon Dioxide 30 mmol/L (22-29); Chloride 99 mmol/L (98-107); Globulin 2.6 g/dL (1.3-4.6); Glucose 129 mg/dL (65-115); Osmolality Calculated 285 mOsm/kg (285-295); Potassium 4.2 mmol/L (3.5-5.1); Sodium 136 mmol/L (136-145); Total Bilirubin 0.3 mg/dL (0.15-1.2); Total Protein 6.7 g/dL (6.6-8.7)
[2022-07-31 11:01] LABS: Acetaminophen < 5.0 ug/mL (10-30)
--- NOTE | 2022-07-31 12:29 | DCPLANNER ---
Addendum entered by Becky Moses 08/16/22 16:10: senior manager quality assurance received the following message from [facility] regarding follow up appointment: Spoke with Ana Luisa and she is going to review with Dr. Rodrigues. Ana Luisa will let me know if we need to schedule patient. Original Note: senior manager quality assurance was asked to call the office of Dr. Rodrigues at [facility] about patient, to see if Dr. Rodrigues would follow up with patient in clinic. senior manager quality assurance called [facility], spoke with Ana Luisa, 's nurse, gave clinic patients information. Patients information will be printed and reviewed. Clinic will call patient with appointment information.
== END 2022-07-31 13:11 | disposition home or self-care (01) ==
PROVIDERS: Emergency Provider Family Medicine; PCP Emergency Medicine Emergency Medical Services
DX: S22.41XA Multiple fractures of ribs, right side, initial encounter for closed fracture (principal); Z79.84 Long term (current) use of oral hypoglycemic drugs; F17.210 Nicotine dependence, cigarettes, uncomplicated; W19.XXXA Unspecified fall, initial encounter
CPT/HCPCS: 71045; 80053; 80307; 85025; 96374; 99284; J1885

== ENCOUNTER → 2022-08-14 09:26 | Outpatient (BNVA) | payer OTHER, SELFPAY | PROVIDERS: PCP Emergency Medicine Emergency Medical Services; Visit Provider Podiatrist Foot & Ankle Surgery | DX: E11.42 Type 2 diabetes mellitus with diabetic polyneuropathy (principal); M76.821 Posterior tibial tendinitis, right leg; M76.822 Posterior tibial tendinitis, left leg; Z79.84 Long term (current) use of oral hypoglycemic drugs | CPT/HCPCS: 99214 ==

== ENCOUNTER → 2022-09-25 14:55 | Outpatient (BNVA) | payer OTHER, SELFPAY | PROVIDERS: PCP Emergency Medicine Emergency Medical Services; Visit Provider Thoracic Surgery (Cardiothoracic Vascular Surgery) | DX: Z87.81 Personal history of (healed) traumatic fracture (principal) | CPT/HCPCS: 99203 ==

== ENCOUNTER 2023-01-23 10:39 | Outpatient (CLI) | payer OTHER, SELFPAY ==
--- NOTE | 2023-01-23 | USCV_ITS ---
Sincere Henderson Age: 72 Gender: M : 1950 Exam Date: 01/23/2023 10:58 Ordering Phys: Chu Ramsey DO Technologist: DIANA Exam Location: [facility] [place] Indication: AAA screening HISTORY: Diameter (cm) AP x Transverse x Length Velocity (cm/s) Waveform Prox Aorta: 1.73 x 2.25 x 148.30 Mid Aorta: 1.48 x 1.64 x 134.50 Distal Aorta: 1.35 x 2.08 x 158.00 Right Iliac Prox: 1.06 x 1.30 x 113.20 Left Iliac Prox: 1.05 x 1.21 x 113.20 Stent Prox Landing x x Aneurysmal Sac Max x x Lt Lat Sac Dim Rt Lat Sac Dim Stent Dist Landing x x Right Iliac Stent x x Left Iliac Stent x x Right Renal Art Left Renal Art FINDINGS: CONCLUSIONS No evidence of abdominal aortic or bilateral iliac aneurysm. 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
== END 2023-01-23 10:40 | disposition home or self-care (01) ==
PROVIDERS: PCP Emergency Medicine Emergency Medical Services; Visit Provider Emergency Medicine Emergency Medical Services
DX: Z13.6 Encounter for screening for cardiovascular disorders (principal); I70.0 Atherosclerosis of aorta
CPT/HCPCS: 76706

== ENCOUNTER → 2023-02-05 09:19 | Outpatient (BNVA) | payer OTHER, SELFPAY | PROVIDERS: PCP Emergency Medicine Emergency Medical Services; Visit Provider Podiatrist Foot & Ankle Surgery | DX: M76.821 Posterior tibial tendinitis, right leg; M76.822 Posterior tibial tendinitis, left leg | CPT/HCPCS: 99213 ==

== ENCOUNTER 2023-05-14 09:08 | Emergency (ER) | payer OTHER, SELFPAY ==
[2023-05-14 09:15] VITALS: BP 134/77; PULSE 72; RESP 16; TEMP 36.9; O2SAT 97; BMI 21.6
== END 2023-05-14 09:51 | disposition left against medical advice (07) ==
PROVIDERS: Emergency Provider Family Medicine; PCP Emergency Medicine Emergency Medical Services
DX: Z53.21 Procedure and treatment not carried out due to patient leaving prior to being seen by health care provider (principal); M76.821 Posterior tibial tendinitis, right leg; M76.822 Posterior tibial tendinitis, left leg
CPT/HCPCS: 99213

== ENCOUNTER 2023-05-14 10:19 | Emergency (ER) | payer MEDICARE, SELFPAY ==
--- NOTE | 2023-05-14 10:26 | PC.PHAR ---
[place]
[2023-05-14 10:29] VITALS: BP 110/64; PULSE 102; RESP 16; TEMP 36.7; O2SAT 97; BMI 21.6
[2023-05-14 10:53] LABS: Basophils % 0.4 %; Eosinophils # 0.1 10^3/uL (0.0-0.8); Eosinophils % 0.9 %; Hematocrit 42.5 % (37-53); Lymphocytes # 1.9 10^3/uL (0.8-4.8); Lymphocytes % 26.8 %; Mean Corpuscular HGB Conc 33.2 g/dL (30-55); Mean Corpuscular Hemoglobin 29.1 pg (27-33); Mean Corpuscular Volume 87.8 fl (82-101); Mean Platelet Volume 9.8 fL (7.4-10.4); Monocytes # 0.5 10^3/uL (0.2-0.9); Monocytes % 6.8 %; Neutrophils # 4.56 10^3/uL (1.8-7.7); Neutrophils % 64.8 %; Nucleated Red Blood Cells % 0 %; Platelet Count 198 10^3/cmm (157-399); Red Blood Count 4.84 10^6/uL (3.85-5.65); Red Cell Distribution Width 13.1 % (12.1-15.1); White Blood Count 7.04 10^3/uL (3.29-11.43)
[2023-05-14 11:12] LABS: Alanine Aminotransferase 24 U/L (0-41); Albumin Level 4.2 g/dL (3.5-5.2); Alkaline Phosphatase 102 U/L (40-130); Anion Gap 16.9 (5-19); Aspartate Amino Transferase 18 U/L (0-40); Blood Urea Nitrogen 13 mg/dL (8-23); Calcium 9.2 mg/dL (8.5-10.5); Carbon Dioxide 25 mmol/L (22-29); Chloride 101 mmol/L (98-107); Globulin 2.6 g/dL (1.3-4.6); Glucose 127 mg/dL (65-115); Lipase 15 U/L (13-60); Osmolality Calculated 290 mOsm/kg (285-295); Potassium 3.9 mmol/L (3.5-5.1); Sodium 139 mmol/L (136-145); Total Bilirubin 0.5 mg/dL (0.15-1.2); Total Protein 6.8 g/dL (6.6-8.7)
--- NOTE | 2023-05-14 11:13 | W.ED.ABDPA2 ---
HPI - Abdominal Pain General: Chief Complaint: Abdominal Pain Stated Complaint: N/V Time Seen by Provider: 05/14/23 11:12 Source: patient Mode of arrival: ambulatory History of Present Illness: 70-year-old male presents emergency room with complaint of nausea without vomiting for the last couple of months. He said intermittent abdominal discomfort. No dysuria urgency or frequency no hematochezia melena hematemesis coffee-ground emesis no chest pain or shortness of breath associated with it. Onset (ago): month(s) (3) Exacerbating factors: nothing Relieving factors: nothing Associated Symptoms: Denies anorexia, belching, bloating, change in bowel habits, change in stool character, chills, coffee ground emesis, constipation, GI cramping, diarrhea, dyspepsia, dysuria, excessive flatus, fever(s), heartburn, hematochezia, hematuria, hematemesis, fecal incontinence, loose stools, melena, nausea, poor appetite, syncope and vomiting Review of Systems Const: Denies: fever(s) or chills Card: Denies: chest pain or syncope Resp: Denies: dyspnea GI: Denies: abdominal pain, nausea, vomiting, hematemesis, coffee ground emesis, heartburn, diarrhea, constipation, bloating, GI cramping, belching, excessive flatus, fecal incontinence, change in bowel habits, change in stool character, hematochezia or melena : Denies: dysuria, urinary frequency, urinary urgency or hematuria Musc: Denies: neck pain or back pain Skin/Breast: Denies: rash PFSH ED PFSH: Medical History BPH loc w urin obs/LUTS Right inguinal hernia Schizo-affective schizophrenia Surgical History History of laparoscopic cholecystectomy Hx of umbilical hernia repair Family History Mother , at age 70 Cancer Bone Father , at age 72 Colon cancer Grandmother , age unknown Diabetes Social History Smoking and tobacco/nicotine status: current some day tobacco/nicotine user Alcohol intake: current Alcohol intake frequency: few times a week Substance/Drug Use: never Lives independently: Yes Marital status: Single service: Yes Current occupational status: retired and disabled Physical Exam Const: GENERAL APPEARANCE: cooperative and comfortable ORIENTATION/CONSCIOUSNESS: Yes awake HENMT: COMMON NORMALS: normocephalic, atraumatic and hearing grossly normal bilaterally HEAD & SCALP: normocephalic and atraumatic Resp: COMMON NORMALS: normal respiratory effort, No retractions, No use of accessory muscles and clear to auscultation bilaterally AUSCULTATION: clear to auscultation bilaterally Cardio: COMMON NORMALS: regular rate, regular rhythm and No murmurs present (Cardio) RATE: regular rate RHYTHM: regular rhythm GI: COMMON NORMALS: Soft to palpation and No hepatosplenomegaly present AUSCULTATION: Yes normoactive bowel sounds PALPATION: Yes Soft to palpation, No Tenderness to palpation present (GI), No Guarding due to palpation present (GI) and Yes No hepatosplenomegaly present Extremity: COMMON NORMALS: normal to inspection, capillary refill normal, no clubbing, cyanosis or edema, no calf tenderness and no pedal edema Skin: COMMON NORMALS: no rashes or lesions noted GENERAL SKIN EXAM: no rashes or lesions noted Course Vital Signs: Vital signs: Vital Signs Temperature 98.0 F 05/14/23 10:29 Pulse Rate 102 H 05/14/23 10:29 Respiratory Rate 16 05/14/23 10:29 Blood Pressure 139/69 05/14/23 11:47 Pulse Oximetry 94 05/14/23 11:47 Oxygen Delivery Me thod Room Air 05/14/23 11:47 MDM - Abdominal Pain Medical Decision Making Exam is unremarkable Labs unremarkable discharge patient home can use ondansetron as needed follow-up with primary care. Medical Records I reviewed the patient's medical records. Lab Data I reviewed the patient's lab results. 05/14/23 10:45 05/14/23 10:45 Labs/Radiology: Laboratory Results WBC 7.04 10^3/uL (3.29-11.43) 05/14/23 10:45 RBC 4.84 10^6/uL (3.85-5.65) 05/14/23 10:45 Hgb 14.10 g/dL (11.27-16.99) 05/14/23 10:45 Hct 42.5 % (37-53) 05/14/23 10:45 MCV 87.8 fl (82-101) 05/14/23 10:45 MCH 29.1 pg (27-33) 05/14/23 10:45 MCHC 33.2 g/dL (30-55) 05/14/23 10:45 RDW 13.1 % (12.1-15.1) 05/14/23 10:45 Plt Count 198 10^3/cmm (157-399) 05/14/23 10:45 MPV 9.8 fL (7.4-10.4) 05/14/23 10:45 Neut % (Auto) 64.8 % 05/14/23 10:45 Lymph % (Auto) 26.8 % 05/14/23 10:45 [place] % (Auto) 6.8 % 05/14/23 10:45 Eos % (Auto) 0.9 % 05/14/23 10:45 Baso % (Auto) 0.4 % 05/14/23 10:45 Neut # (Auto) 4.56 10^3/uL (1.8-7.7) 05/14/23 10:45 Lymph # (Auto) 1.9 10^3/uL (0.8-4.8) 05/14/23 10:45 [place] # (Auto) 0.5 10^3/uL (0.2-0.9) 05/14/23 10:45 Eos # (Auto) 0.1 10^3/uL (0.0-0.8) 05/14/23 10:45 Baso # (Auto) 0.0 10^3/uL (0.0-0.1) 05/14/23 10:45 Nucleated RBC % (auto) 0 % 05/14/23 10:45 Nucleated RBCs # 0.0 /100WBC 05/14/23 10:45 Sodium 139 mmol/L (136-145) 05/14/23 10:45 Potassium 3.9 mmol/L (3.5-5.1) 05/14/23 10:45 Chloride 101 mmol/L (98-107) 05/14/23 10:45 Carbon Dioxide 25 mmol/L (22-29) 05/14/23 10:45 Anion Gap 16.9 (5-19) 05/14/23 10:45 BUN 13 mg/dL (8-23) 05/14/23 10:45 Creatinine 0.6 mg/dL (0.7-1.2) L 05/14/23 10:45 GFR Calculation Not Reportable 05/14/23 10:45 Glucose 127 mg/dL (65-115) H 05/14/23 10:45 Calculated Osmolality 290 mOsm/kg (285-295) 05/14/23 10:45 Calcium 9.2 mg/dL (8.5-10.5) 05/14/23 10:45 Total Bilirubin 0.5 mg/dL (0.15-1.2) 05/14/23 10:45 AST 18 U/L (0-40) 05/14/23 10:45 ALT 24 U/L (0-41) 05/14/23 10:45 Alkaline Phosphatase 102 U/L (40-130) 05/14/23 10:45 Total Protein 6.8 g/dL (6.6-8.7) 05/14/23 10:45 Albumin 4.2 g/dL (3.5-5.2) 05/14/23 10:45 Globulin 2.6 g/dL (1.3-4.6) 05/14/23 10:45 Lipase 15 U/L (13-60) 05/14/23 10:45 No radiology studies performed this visit Discharge Plan Discharge Patient Disposition: Home Clinical Impression: Abdominal pain Condition: Stable Prescriptions: New Protonix 40 mg tablet,delayed release (DR/EC) 40 mg PO BID 14 Days Qty: 28 0RF ondansetron HCl 4 mg tablet 4 mg PO Q6H PRN (Reason: nausea and vomiting) Qty: 20 0RF No Action metformin 500 mg tablet 500 mg PO DAILY amitriptyline 25 mg tablet 25 mg PO DAILY magnesium oxide 200 mg magnesium tablet 200 mg PO DAILY Rx Instructions: 190 mg daily Ultra CoQ10 75 mg capsule 75 mg PO DAILY lecithin 1,200 mg capsule 1,200 mg PO .2 daily Rx Instructions: give with meal/snack Digestive Advantage Probio-Pre 400 million cell tablet,chewable PO .500 million cfu PRN (Reason: daily) vitamin B complex Tablet 1 tab PO DAILY melatonin 12 mg tablet PO .nightly superfruit gummies PO .2 nightly (DME) Orthopedic Shoes with Custom Insoles See Rx Instructions .Route .MEDSUPPLY Qty: 1 0RF Rx Instructions: As directed by [facility]- [place] Patient sertraline 100 mg Tablet 200 mg PO DAILY amlodipine 5 mg Tablet 5 mg PO DAILY bisacodyl 5 mg Tablet,Delayed Release (Dr/Ec) 5 mg PO DAILY Flomax 0.4 mg capsule 0.8 mg PO .qhs Qty: 30 0RF oxycodone-acetaminophen 5-325 mg tablet 1 tab PO Q8H PRN (Reason: pain) Qty: 10 0RF Discharge Orders: Discharge ED (Routine); Ordered 05/14/23 Ordered By: Mele Duckworth Referrals: Chu Ramsey, [Primary Care Provider] - Discharge Diet: Usual diet Discharge Activity: Increase activity as tolerated Patient Instructions: Abdominal Pain (ED), Opioid Safety, Pain Management Activity Restrictions/Additional Instructions: Thank you for choosing [facility] for your healthcare needs today. Please realize this is an emergency room and that we are providing you with a medical screening exam and this may not be complete and all inclusive of all the testing and or work up that you may need to determine your ailment or severity of your illness. It is very important that you follow up as instructed or that you return to the Emergency Department should you have concerns or if your condition changes or worsens in any way. Recommend you follow-up with your primary care provider start pantoprazole 40 mg daily ondansetron to use as needed for nausea and vomiting Coding Level of Care Code ED Network Announcer for Alex Webb
[2023-05-14 11:47] VITALS: BP 139/69; O2SAT 94
== END 2023-05-14 12:04 | disposition home or self-care (01) ==
PROVIDERS: Emergency Provider Family Medicine; PCP Emergency Medicine Emergency Medical Services
DX: R10.9 Unspecified abdominal pain (principal); Z79.84 Long term (current) use of oral hypoglycemic drugs; Z72.0 Tobacco use
CPT/HCPCS: 36415; 80053; 83690; 85025; 99283

== ENCOUNTER 2023-05-23 08:33 | Emergency (ER) | payer OTHER, SELFPAY ==
[2023-05-23 08:33] VITALS: BP 140/67; PULSE 81; RESP 18; TEMP 36.4; O2SAT 93; BMI 22.3
--- NOTE | 2023-05-23 08:35 | CT_ITS ---
WS: [id number] CT ABDOMEN PELVIS TECHNIQUE: Noncontrast CT of the abdomen and pelvis with coronal and sagittal reformatted images. CLINICAL INFORMATION: Abdominal pain COMPARISON: 06/25/2022 DLP: 439.[address] scans at [facility] use at least one of these dose optimization techniques: automated e xposure control; mA and/or kV adjustment per patient size (includes targeted exams where dose is matc hed to clinical indication); or iterative reconstruction. FINDINGS: Numerous new low-attenuation lesions within both hepatic lobes suspicious for metastatic disease. The se are new since 06/25/2022 the largest measuring 3.1 cm. Recommend further evaluation with contrast- enhanced CT. Prior cholecystectomy. In addition, new low-attenuation sigmoid mass measuring 4.3 x 3.4 cm suspiciou s for neoplasm. Recommend further evaluation with sigmoidoscopy colonoscopy. Enlarged prostate simila r to the prior examinations with impingement on the bladder with evidence of bladder outlet obstructi on. Recommend correlation PSA. Thickening of the seminal vesicles bilaterally. Adrenal glands are normal. Splenic granulomas. Noncontrast pancreas appears normal. Normal GE junctio n. Sigmoid colon constipation. Moderate constipation of the transverse colon and LEFT colon. Adrenal glands are normal. No hydronephrosis. Normal caliber abdominal aorta. Aortic calcification. Fat-conta ining inguinal hernias. No abdominal or pelvic lymphadenopathy. No inguinal lymphadenopathy. IMPRESSION: 1. Multiple new hepatic lesions suspicious for metastatic disease largest measuring 3.1 cm. Recommen d follow-up with contrast-enhanced CT abdomen pelvis. 2. Lobulated mass involving the sigmoid colon measuring 4.3 x 3.5 cm suspicious for neoplasm. Recomm end further evaluation with endoscopy. 3. Enlarged prostate similar to the prior examinations with evidence of bladder outlet obstruction. Recommend correlation PSA. Thickening of the seminal vesicles bilaterally. 4. Pancolonic constipation some of which is likely due to partial obstruction from the suspected sig moid mass. Notified Mele Duckworth DO at 05/23/2023 10:15 AM.
--- NOTE | 2023-05-23 08:46 | W.ED.ABDPA2 ---
HPI - Abdominal Pain General: Chief Complaint: Abdominal Pain Stated Complaint: abd pain/ Diarrhea Time Seen by Provider: 05/23/23 08:34 Source: patient Mode of arrival: EMS History of Present Illness: 72-year-old male who presents emergency room with abdominal pain he was seen previously had vague nonspecific abdominal pain he states been going on for months his evaluation was unremarkable and is referred back to primary care has not seen primary care at this point. He was discharged home with ondansetron. He is already also on pantoprazole. Patient has not previously had colonoscopy. EMS reported and patient confirmed he does not have running water in the home. He did have a couple episodes of frequent stools today but not particularly diarrhea stools. No hematochezia or melena noted. MD elicited complaint: abdominal pain Onset (ago): month(s) Location: RL Quality: cramping Exacerbating factors: nothing Relieving factors: nothing Associated Symptoms: Reports poor appetite and vomiting; Denies anorexia, belching, bloating, change in bowel habits, change in stool character, chills, coffee ground emesis, constipation, GI cramping, diarrhea, dyspepsia, dysuria, excessive flatus, fever(s), heartburn, hematochezia, hematuria, hematemesis, fecal incontinence, loose stools, melena, nausea and syncope Review of Systems Const: Denies: fever(s) or chills Card: Denies: chest pain or syncope Resp: Denies: dyspnea GI: Reports: vomiting; Denies: abdominal pain, nausea, hematemesis, coffee ground emesis, heartburn, diarrhea, constipation, bloating, GI cramping, belching, excessive flatus, fecal incontinence, change in bowel habits, change in stool character, hematochezia or melena : Denies: dysuria, urinary frequency, urinary urgency or hematuria Musc: Denies: neck pain or back pain Skin/Breast: Denies: rash PFSH ED PFSH: Medical History BPH loc w urin obs/LUTS Right inguinal hernia Schizo-affective schizophrenia Surgical History History of laparoscopic cholecystectomy Hx of umbilical hernia repair Family History Mother , at age 70 Cancer Bone Father , at age 72 Colon cancer Grandmother , age unknown Diabetes Social History Smoking and tobacco/nicotine status: current some day tobacco/nicotine user Alcohol intake: current Alcohol intake frequency: few times a week Substance/Drug Use: never Lives independently: Yes Marital status: Single service: Yes Current occupational status: retired and disabled Physical Exam Const: COMMON NORMALS: no acute distress GENERAL APPEARANCE: cooperative and comfortable ORIENTATION/CONSCIOUSNESS: Yes awake, Yes oriented to person, Yes oriented to place and Yes oriented to time HENMT: COMMON NORMALS: normocephalic, atraumatic and hearing grossly normal bilaterally HEAD & SCALP: normocephalic and atraumatic Resp: COMMON NORMALS: normal respiratory effort, No retractions, No use of accessory muscles and clear to auscultation bilaterally AUSCULTATION: clear to auscultation bilaterally Cardio: COMMON NORMALS: regular rate, regular rhythm and No murmurs present (Cardio) RATE: regular rate RHYTHM: regular rhythm GI: COMMON NORMALS: Soft to palpation and No hepatosplenomegaly present AUSCULTATION: Yes normoactive bowel sounds PALPATION: Yes Soft to palpation, No Tenderness to palpation present (GI), No Guarding due to palpation present (GI) and Yes No hepatosplenomegaly present Extremity: COMMON NORMALS: normal to inspection, capillary refill normal, no clubbing, cyanosis or edema, no calf tenderness and no pedal edema Neuro: SENSORIUM/ORIENTATION: Yes oriented to person, Yes oriented to place and Yes oriented to time Skin: COMMON NORMALS: no rashes or lesions noted GENERAL SKIN EXAM: no rashes or lesions noted Course Vital Signs: Vital signs: Vital Signs Temperature 97.6 F 05/23/23 08:33 Pulse Rate 74 05/23/23 08:59 Respiratory Rate 18 05/23/23 08:59 Blood Pressure 140/67 05/23/23 08:59 Pulse Oximetry 93 05/23/23 08:59 Oxygen Delivery Me thod Room Air 05/23/23 08:59 MDM - Abdominal Pain Medical Decision Making Patient abdominal exam benign Labs normal. CT was done today because of his persistent complaint of abdominal pain. Shows sigmoid colon mass as well as what appear to be liver metastasis. We will set patient up for an outpatient repeat CT with and without contrast to further delineate and refer to general surgery for evaluation for possible endoscopy for biopsy of sigmoid colon lesion. Discussed with patient and family members at the bedside. Medical Records I reviewed the patient's medical records. Lab Data I reviewed the patient's lab results. 05/23/23 08:41 05/23/23 08:41 Labs/Radiology: Laboratory Results WBC 7.05 10^3/uL (3.29-11.43) 05/23/23 08:41 RBC 4.71 10^6/uL (3.85-5.65) 05/23/23 08:41 Hgb 14.00 g/dL (11.27-16.99) 05/23/23 08:41 Hct 41.9 % (37-53) 05/23/23 08:41 MCV 89.0 fl (82-101) 05/23/23 08:41 MCH 29.7 pg (27-33) 05/23/23 08:41 MCHC 33.4 g/dL (30-55) 05/23/23 08:41 RDW 13.2 % (12.1-15.1) 05/23/23 08:41 Plt Count 192 10^3/cmm (157-399) 05/23/23 08:41 MPV 9.8 fL (7.4-10.4) 05/23/23 08:41 Neut % (Auto) 64.5 % 05/23/23 08:41 Lymph % (Auto) 25.2 % 05/23/23 08:41 [place] % (Auto) 8.2 % 05/23/23 08:41 Eos % (Auto) 1.7 % 05/23/23 08:41 Baso % (Auto) 0.3 % 05/23/23 08:41 Neut # (Auto) 4.54 10^3/uL (1.8-7.7) 05/23/23 08:41 Lymph # (Auto) 1.8 10^3/uL (0.8-4.8) 05/23/23 08:41 [place] # (Auto) 0.6 10^3/uL (0.2-0.9) 05/23/23 08:41 Eos # (Auto) 0.1 10^3/uL (0.0-0.8) 05/23/23 08:41 Baso # (Auto) 0.0 10^3/uL (0.0-0.1) 05/23/23 08:41 Nucleated RBC % (auto) 0 % 05/23/23 08:41 Nucleated RBCs # 0.0 /100WBC 05/23/23 08:41 Sodium 137 mmol/L (136-145) 05/23/23 08:41 Potassium 3.8 mmol/L (3.5-5.1) 05/23/23 08:41 Chloride 98 mmol/L (98-107) 05/23/23 08:41 Carbon Dioxide 26 mmol/L (22-29) 05/23/23 08:41 Anion Gap 16.8 (5-19) 05/23/23 08:41 BUN 14 mg/dL (8-23) 05/23/23 08:41 Creatinine 0.6 mg/dL (0.7-1.2) L 05/23/23 08:41 GFR Calculation Not Reportable 05/23/23 08:41 Glucose 121 mg/dL (65-115) H 05/23/23 08:41 Calculated Osmolality 286 mOsm/kg (285-295) 05/23/23 08:41 Calcium 9.2 mg/dL (8.5-10.5) 05/23/23 08:41 Total Bilirubin 0.3 mg/dL (0.15-1.2) 05/23/23 08:41 AST 16 U/L (0-40) 05/23/23 08:41 ALT 17 U/L (0-41) 05/23/23 08:41 Alkaline Phosphatase 104 U/L (40-130) 05/23/23 08:41 Total Protein 6.7 g/dL (6.6-8.7) 05/23/23 08:41 Albumin 4.0 g/dL (3.5-5.2) 05/23/23 08:41 Globulin 2.7 g/dL (1.3-4.6) 05/23/23 08:41 Lipase 31 U/L (13-60) 05/23/23 08:41 All radiology interpretation(s) finalized by discharge Discharge Plan Discharge Patient Disposition: Home Clinical Impression: Colonic mass, Metastasis to liver Condition: Stable Prescriptions: No Action magnesium oxide 200 mg magnesium tablet 200 mg PO DAILY Rx Instructions: 190 mg daily Ultra CoQ10 75 mg capsule 75 mg PO DAILY lecithin 1,200 mg capsule 1,200 mg PO .2 daily Rx Instructions: give with meal/snack Digestive Advantage Probio-Pre 400 million cell tablet,chewable 400 cell PO DAILY vitamin B complex Tablet 1 tab PO DAILY melatonin 12 mg tablet 12 mg PO QPM PRN (Reason: Sleep) (DME) Orthopedic Shoes with Custom Insoles See Rx Instructions .Route .MEDSUPPLY Qty: 1 0RF Rx Instructions: As directed by EILEEN&O- [place] Patient sertraline 100 mg Tablet 200 mg PO DAILY amlodipine 5 mg Tablet 5 mg PO DAILY bisacodyl 5 mg Tablet,Delayed Release (Dr/Ec) 5 mg PO DAILY pantoprazole [Protonix] 40 mg tablet,delayed release (DR/EC) 40 mg PO BID 14 Days Qty: 28 0RF ondansetron HCl 4 mg tablet 4 mg PO Q6H PRN (Reason: nausea and vomiting) Qty: 20 0RF tamsulosin 0.4 mg Capsule 0.4 mg PO QPM metformin 1,000 mg Tablet 500 mg PO DAILY Discharge Orders: Discharge ED (Routine); Ordered 05/23/23 Ordered By: Mele Duckworth Referrals: Chu Ramsey DO [Primary Care Provider] - Discharge Diet: Usual diet Discharge Activity: Increase activity as tolerated Patient Instructions: Opioid Safety, Pain Management Activity Restrictions/Additional Instructions: Thank you for choosing [facility] for your healthcare needs today. Please realize this is an emergency room and that we are providing you with a medical screening exam and this may not be complete and all inclusive of all the testing and or work up that you may need to determine your ailment or severity of your illness. It is very important that you follow up as instructed or that you return to the Emergency Department should you have concerns or if your condition changes or worsens in any way. digital program manager will make arrangements for you to have an outpatient CT of your abdomen and pelvis with IV and oral contrast as well as consultation with general surgery for possible colonoscopy to biopsy the colon mass that was noted on CT today. Coding Level of Care Code ED Director [facility] for [facility]
[2023-05-23 08:50] LABS: Basophils % 0.3 %; Eosinophils # 0.1 10^3/uL (0.0-0.8); Eosinophils % 1.7 %; Hematocrit 41.9 % (37-53); Lymphocytes # 1.8 10^3/uL (0.8-4.8); Lymphocytes % 25.2 %; Mean Corpuscular HGB Conc 33.4 g/dL (30-55); Mean Corpuscular Hemoglobin 29.7 pg (27-33); Mean Platelet Volume 9.8 fL (7.4-10.4); Monocytes # 0.6 10^3/uL (0.2-0.9); Monocytes % 8.2 %; Neutrophils # 4.54 10^3/uL (1.8-7.7); Neutrophils % 64.5 %; Nucleated Red Blood Cells % 0 %; Platelet Count 192 10^3/cmm (157-399); Red Blood Count 4.71 10^6/uL (3.85-5.65); Red Cell Distribution Width 13.2 % (12.1-15.1); White Blood Count 7.05 10^3/uL (3.29-11.43)
[2023-05-23] MEDS: ondansetron 2 mg/ML SDV 2 mL 4 MG IVP (08:55)
[2023-05-23] MEDS: sodium chloride 0.9% 1,000 ML 999 ML IV (08:55)
[2023-05-23 08:59] VITALS: BP 140/67; PULSE 74; RESP 18; O2SAT 93
[2023-05-23 09:34] LABS: Alanine Aminotransferase 17 U/L (0-41); Alkaline Phosphatase 104 U/L (40-130); Anion Gap 16.8 (5-19); Aspartate Amino Transferase 16 U/L (0-40); Blood Urea Nitrogen 14 mg/dL (8-23); Calcium 9.2 mg/dL (8.5-10.5); Carbon Dioxide 26 mmol/L (22-29); Chloride 98 mmol/L (98-107); Globulin 2.7 g/dL (1.3-4.6); Glucose 121 mg/dL (65-115); Lipase 31 U/L (13-60); Osmolality Calculated 286 mOsm/kg (285-295); Potassium 3.8 mmol/L (3.5-5.1); Sodium 137 mmol/L (136-145); Total Bilirubin 0.3 mg/dL (0.15-1.2); Total Protein 6.7 g/dL (6.6-8.7)
--- NOTE | 2023-05-23 11:20 | DCPLANNER ---
Message sent to Gen Surg for follow up on Colon Mass, Liver Mets and Surgery colonoscopy.
--- NOTE | 2023-05-23 11:26 | DCPLANNER ---
Emailed centralized scheduling for outpaient request for CT with contrast of Abd/pelvis
== END 2023-05-23 11:48 | disposition home or self-care (01) ==
PROVIDERS: Emergency Provider Family Medicine; PCP Emergency Medicine Emergency Medical Services
DX: K63.9 Disease of intestine, unspecified (principal); C78.7 Secondary malignant neoplasm of liver and intrahepatic bile duct; Z72.0 Tobacco use; Z59.12 Inadequate housing utilities
CPT/HCPCS: 36415; 74176; 80053; 83690; 85025; 96374; 99284; J2405; J7030

== ENCOUNTER → 2023-06-03 14:54 | Outpatient (BNVA) | payer OTHER, MEDICARE, SELFPAY | PROVIDERS: PCP Emergency Medicine Emergency Medical Services; Visit Provider Surgery | DX: K63.89 Other specified diseases of intestine (principal); C18.9 Malignant neoplasm of colon, unspecified | CPT/HCPCS: 36415; 82378; 99205; 99215 ==

== ENCOUNTER 2023-06-04 15:42 | Outpatient (CLI) | payer OTHER, SELFPAY ==
--- NOTE | 2023-06-04 17:00 | CT_ITS ---
WS: [id number] CT ABDOMEN PELVIS TECHNIQUE: Contrast-enhanced CT of the abdomen and pelvis with coronal and sagittal reformatted image s. CLINICAL INFORMATION: sigmoid mass COMPARISON: CT 05/23/2023 DLP: 447.[address] scans at [facility] use at least one of these dose optimization techniques: automated e xposure control; mA and/or kV adjustment per patient size (includes targeted exams where dose is matc hed to clinical indication); or iterative reconstruction. FINDINGS: Again seen are numerous peripheral enhancing metastatic lesions in the liver the largest me asuring 3.1 cm RIGHT hepatic lobe. These are new since 06/25/2022. Lung bases are well aerated. Normal spleen. Spleen granulomas. Normal GE junction. Adrenal glands are normal. Normal renal parenchymal enhancement. No hydronephrosis. A few tiny RIGHT renal cysts. Marie l pancreas. Normal caliber abdominal aorta with aortic calcification. Previously described suspected sigmoid mass more difficult to discern today likely due to IV contrast enhancement and lack of oral contrast at this level in the sigmoid. Moderate sigmoid constipation wi th apparent narrowing in the area of the suspected lesion. Recommend further evaluation with sigmoido scopy/colonoscopy. Markedly enlarged prostate with heterogeneous enhancement. Recommend correlation PSA. Evidence of amarjit dder outlet obstruction. Prostate measures 4.8 cm. Mild diffuse bladder wall thickening. Tiny cystoce le. RIGHT greater than LEFT fat-containing inguinal hernias. No abdominal or pelvic lymphadenopathy. Thickening of the seminal vesicles. IMPRESSION: 1. Again seen are multiple hepatic lesions suspicious for metastatic disease largest in the RIGHT he patic lobe measuring 3.1 cm. 2. Suspected sigmoid mass more difficult to discern today due to enhancement and lack of oral contra st at this level. Persistent sigmoid mass best visualized on the sagittal imaging with persistent cody dence of luminal narrowing in this area. Recommend further evaluation with colonoscopy/sigmoidoscopy. 3. Markedly enlarged prostate with evidence of bladder outlet obstruction and nodularity. Thickening of the seminal vesicles. Prostate measures 4.8 cm. Recommend correlation PSA. 4. Moderate diffuse pancolonic constipation 5. No other acute findings.
[2023-06-04] MEDS: iohexol 350 mg/mL 500 mL Btl (per mL) PO (17:04)
[2023-06-04] MEDS: iohexol 350 mg/mL 500 mL Btl (per mL) IV (17:05)
== END 2023-06-04 15:43 | disposition home or self-care (01) ==
LOC: RAD 15:43
PROVIDERS: PCP Emergency Medicine Emergency Medical Services; Visit Provider Surgery
DX: K63.89 Other specified diseases of intestine (principal); K76.9 Liver disease, unspecified; N40.1 Benign prostatic hyperplasia with lower urinary tract symptoms; N13.8 Other obstructive and reflux uropathy; K59.09 Other constipation
CPT/HCPCS: 74177; Q9967

== ENCOUNTER 2023-06-06 15:06 | Outpatient (CLI) | payer OTHER, SELFPAY ==
--- NOTE | 2023-06-06 15:30 | CT_ITS ---
WS: [id number] CT CHEST TECHNIQUE: Contrast enhanced CT of the chest with coronal and sagittal reformatted images. CLINICAL INFORMATION: colon mass COMPARISON: CT chest 06/25/2022 DLP: 298.[address] scans at [facility] use at least one of these dose optimization techniques: automated e xposure control; mA and/or kV adjustment per patient size (includes targeted exams where dose is matc hed to clinical indication); or iterative reconstruction. FINDINGS: Normal caliber thoracic aorta. Proximal main pulmonary arteries are normal. Coronary calcification. No mediastinal or hilar lymphadenopathy. No axillary lymphadenopathy. Again seen are numerous metastatic lesions within the liver described on the recent CT abdomen pelvis . Lungs are well aerated. No acute pulmonary infiltrates. No suspicious pulmonary parenchymal abnormali ties. No evidence of metastatic disease in the chest. Mild thoracic curve. Mild thoracic kyphosis. Chronic RIGHT rib fractures with callus formation. IMPRESSION: 1. No evidence of metastatic disease in the chest. 2. No mediastinal or hilar lymphadenopathy. 3. Numerous metastatic lesions in the liver described on the recent CT abdomen pelvis.
[2023-06-06] MEDS: iohexol 350 mg/mL 500 mL Btl (per mL) IV (15:45)
== END 2023-06-06 15:07 | disposition home or self-care (01) ==
LOC: RAD 15:06
PROVIDERS: PCP Emergency Medicine Emergency Medical Services; Visit Provider Surgery
DX: C18.9 Malignant neoplasm of colon, unspecified (principal); K63.89 Other specified diseases of intestine; C78.7 Secondary malignant neoplasm of liver and intrahepatic bile duct
CPT/HCPCS: 71260; Q9967

== ENCOUNTER 2023-08-12 16:17 | Emergency (ER) | payer OTHER, SELFPAY ==
[2023-08-12 16:29] VITALS: BP 168/83; PULSE 73; RESP 16; TEMP 36.5; O2SAT 97; BMI 21.4
--- NOTE | 2023-08-12 16:51 | ECG_ITS ---
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 Measurements Intervals [place] Rate: 61 P: 50 [place]: 137 QRS: -11 QRSD: 109 T: 24 QT: 418 QTc: 424 Interpretive Statements SINUS RHYTHM POSSIBLE LEFT ATRIAL ENLARGEMENT [-0.1mV P-WAVE IN V1/V2] Compared to ECG 05/05/2021 11:37:22 No significant changes Electronically Signed On 08-12-2023 23:08:33 REGULATED PROGRAM MANAGER by Jaguar Bill M.D. [email or web address] [email or web address].[id number]
[2023-08-12 17:19] LABS: Basophils % 0.5 %; Eosinophils # 0.1 10^3/uL (0.0-0.8); Eosinophils % 1.7 %; Hematocrit 40.5 % (37-53); Lymphocytes # 1.3 10^3/uL (0.8-4.8); Lymphocytes % 16.7 %; Mean Corpuscular HGB Conc 32.6 g/dL (30-55); Mean Platelet Volume 10.6 fL (7.4-10.4); Monocytes # 0.5 10^3/uL (0.2-0.9); Monocytes % 6.4 %; Neutrophils # 5.56 10^3/uL (1.8-7.7); Neutrophils % 74.4 %; Nucleated Red Blood Cells % 0 %; Platelet Count 178 10^3/cmm (157-399); Red Blood Count 4.55 10^6/uL (3.85-5.65); White Blood Count 7.48 10^3/uL (3.29-11.43)
[2023-08-12 17:43] LABS: Acetaminophen < 5.0 ug/mL (10-30); Alanine Aminotransferase 18 U/L (0-41); Alcohol Level < 10 mg/dL (0-10); Alkaline Phosphatase 112 U/L (40-130); Anion Gap 14.8 (5-19); Aspartate Amino Transferase 17 U/L (0-40); Blood Urea Nitrogen 15 mg/dL (8-23); Calcium 9.5 mg/dL (8.5-10.5); Carbon Dioxide 27 mmol/L (22-29); Chloride 99 mmol/L (98-107); Globulin 2.7 g/dL (1.3-4.6); Glucose 112 mg/dL (65-115); Osmolality Calculated 286 mOsm/kg (285-295); Potassium 3.8 mmol/L (3.5-5.1); Salicylate < 0.3 mg/dL (3-10); Sodium 137 mmol/L (136-145); Thyroid Stimulating Hormone 1.37 uIU/mL (0.27-4.20); Total Bilirubin 0.3 mg/dL (0.15-1.2); Total Protein 6.7 g/dL (6.6-8.7)
--- NOTE | 2023-08-12 17:49 | W.ED.PSYCHS ---
HPI - Psych General: Chief Complaint: Psychiatric Symptoms Stated Complaint: sent over from [place], [facility] Time Seen by Provider: 08/12/23 16:22 Source: patient Mode of arrival: ambulatory Limitations: no limitations History of Present Illness: 72-year-old male with a history of schizophrenia states he has been off his meds for over a year has been having some increasing hallucinations and psychoses he is here talking about the government he denies any SI or HI denies any worsening proving factors he is wanting inpatient placement to get back on his meds Associated symptoms: Reports delusions Review of Systems Const: Denies: fever(s), chills, body aches or change in appetite ENMT: Denies: throat pain or dental pain Card: Denies: chest pain Resp: Denies: dyspnea GI: Denies: abdominal pain, nausea, vomiting or diarrhea Musc: Denies: neck pain or back pain Skin/Breast: Denies: rash Neuro: Denies: headache(s) Psych: Reports: paranoia PFSH ED PFSH: Medical History BPH loc w urin obs/LUTS Right inguinal hernia Schizo-affective schizophrenia Surgical History History of laparoscopic cholecystectomy Hx of umbilical hernia repair Family History Mother , at age 70 Cancer Bone Father , at age 72 Colon cancer Grandmother , age unknown Diabetes Social History Smoking and tobacco/nicotine status: current some day tobacco/nicotine user Alcohol intake: current Alcohol intake frequency: few times a week Substance/Drug Use: never Lives independently: Yes Marital status: Single service: Yes Current occupational status: retired and disabled Physical Exam Const: COMMON NORMALS: no acute distress, patient oriented x3 and healthy appearing HENMT: COMMON NORMALS: normocephalic and atraumatic HEAD & SCALP: normocephalic and atraumatic Neck/C-Spine: COMMON NORMALS: full ROM and supple Chest: COMMONS NORMALS: normal inspection of the chest and normal palpation of entire chest wall Resp: COMMON NORMALS: normal respiratory effort Cardio: COMMON NORMALS: regular rate, regular rhythm and No murmurs present (Cardio) RATE: regular rate RHYTHM: regular rhythm Extremity: COMMON NORMALS: normal to inspection and full ROM Neuro: COMMON NORMALS: patient oriented x3, moves all extremities and no focal motor deficits Psych: COMMON NORMALS: mental status grossly normal and cooperative THOUGHT CONTENT: Yes delusions, Yes Hallucination(s) present and Yes Derealization present Skin: COMMON NORMALS: no rashes or lesions noted and no wounds GENERAL SKIN EXAM: no rashes or lesions noted Course Vital Signs: Vital signs: Vital Signs Temperature 97.7 F 08/12/23 16:29 Pulse Rate 73 08/12/23 16:29 Respiratory Rate 16 08/12/23 16:29 Blood Pressure 168/83 08/12/23 16:29 Pulse Oximetry 97 08/12/23 16:29 Oxygen Delivery Me thod Room Air 08/12/23 16:29 [facility] - Psych Medical Decision Making Patient presents here with history of schizophrenia with acute psychosis he has not taken his meds for roughly a year he is medically cleared he is excepted at [place] for higher level care for geriatric psych Medical Records I reviewed the patient's medical records. Lab Data I reviewed the patient's lab results. 08/12/23 17:01 08/12/23 17:01 Laboratory Results WBC 7.48 10^3/uL (3.29-11.43) 08/12/23 17:01 RBC 4.55 10^6/uL (3.85-5.65) 08/12/23 17:01 Hgb 13.20 g/dL (11.27-16.99) 08/12/23 17:01 Hct 40.5 % (37-53) 08/12/23 17:01 MCV 89.0 fl (82-101) 08/12/23 17:01 MCH 29.0 pg (27-33) 08/12/23 17:01 MCHC 32.6 g/dL (30-55) 08/12/23 17:01 RDW 13.0 % (12.1-15.1) 08/12/23 17:01 Plt Count 178 10^3/cmm (157-399) 08/12/23 17:01 MPV 10.6 fL (7.4-10.4) H 08/12/23 17:01 Neut % (Auto) 74.4 % 08/12/23 17:01 Lymph % (Auto) 16.7 % 08/12/23 17:01 [place] % (Auto) 6.4 % 08/12/23 17:01 Eos % (Auto) 1.7 % 08/12/23 17:01 Baso % (Auto) 0.5 % 08/12/23 17:01 Neut # (Auto) 5.56 10^3/uL (1.8-7.7) 08/12/23 17:01 Lymph # (Auto) 1.3 10^3/uL (0.8-4.8) 08/12/23 17:01 [place] # (Auto) 0.5 10^3/uL (0.2-0.9) 08/12/23 17:01 Eos # (Auto) 0.1 10^3/uL (0.0-0.8) 08/12/23 17:01 Baso # (Auto) 0.0 10^3/uL (0.0-0.1) 08/12/23 17:01 Nucleated RBC % (auto) 0 % 08/12/23 17:01 Nucleated RBCs # 0.0 /100WBC 08/12/23 17:01 Sodium 137 mmol/L (136-145) 08/12/23 17:01 Potassium 3.8 mmol/L (3.5-5.1) 08/12/23 17:01 Chloride 99 mmol/L (98-107) 08/12/23 17:01 Carbon Dioxide 27 mmol/L (22-29) 08/12/23 17:01 Anion Gap 14.8 (5-19) 08/12/23 17:01 BUN 15 mg/dL (8-23) 08/12/23 17:01 Creatinine 0.7 mg/dL (0.7-1.2) 08/12/23 17:01 GFR Calculation Not Reportable 08/12/23 17:01 Glucose 112 mg/dL (65-115) 08/12/23 17:01 Calculated Osmolality 286 mOsm/kg (285-295) 08/12/23 17:01 Calcium 9.5 mg/dL (8.5-10.5) 08/12/23 17:01 Total Bilirubin 0.3 mg/dL (0.15-1.2) 08/12/23 17:01 AST 17 U/L (0-40) 08/12/23 17:01 ALT 18 U/L (0-41) 08/12/23 17:01 Alkaline Phosphatase 112 U/L (40-130) 08/12/23 17:01 Total Protein 6.7 g/dL (6.6-8.7) 08/12/23 17:01 Albumin 4.0 g/dL (3.5-5.2) 08/12/23 17:01 Globulin 2.7 g/dL (1.3-4.6) 08/12/23 17:01 TSH 1.37 uIU/mL (0.27-4.20) 08/12/23 17:01 Urine Color Yellow (Yellow) 08/12/23 19:20 Urine Appearance Clear (CLEAR) 08/12/23 19:20 Urine pH 8 (5-7) H 08/12/23 19:20 Ur Specific [place] 1.020 (1.005-1.030) 08/12/23 19:20 Urine Protein Neg (Negative) 08/12/23 19:20 Urine Glucose (UA) Norm (Normal) 08/12/23 19:20 Urine Ketones Negative (Negative) 08/12/23 19:20 Urine Blood Neg (Negative) 08/12/23 19:20 Urine Nitrate Negative (Negative) 08/12/23 19:20 Urine Bilirubin Neg (Negative) 08/12/23 19:20 Prot Sulfosalicylic Acd Negative (Negative) 08/12/23 19:20 Urine Urobilinogen Neg mg/dL (Negative) 08/12/23 19:20 Ur Leukocyte Esterase Negative (Negative) 08/12/23 19:20 Salicylates < 0.3 mg/dL (3-10) L 08/12/23 17:01 Urine Opiates Screen Negative ng/mL (Negative) 08/12/23 19:20 Acetaminophen < 5.0 ug/mL (10-30) L 08/12/23 17:01 Ur Barbiturates Screen Negative ng/mL (Negative) 08/12/23 19:20 Ur Phencyclidine Scrn Negative ng/mL (Negative) 08/12/23 19:20 Ur Amphetamines Screen Negative ng/mL (Negative) 08/12/23 19:20 U Benzodiazepines Scrn Negative ng/mL (Negative) 08/12/23 19:20 Urine Cocaine Screen Negative ng/mL (Negative) 08/12/23 19:20 U Marijuana (THC) Screen Negative ng/mL (Negative) 08/12/23 19:20 Ethyl Alcohol < 10 mg/dL (0-10) 08/12/23 17:01 Influenza Type A Ag negative (Negative) 08/12/23 17:20 Influenza Type B Ag negative (Negative) 08/12/23 17:20 RSV Antigen Negative (Negative) 08/12/23 17:20 SARS-CoV-2 Ag (Rapid) negative (Negative) 08/12/23 17:20 No radiology studies performed this visit EKG Data EKG 1: I personally reviewed and interpreted this EKG as follows: EKG interpretation date: 08/12/23 EKG interpretation time: 18:09 Interpretation: nsr hr [address] or t wave abnormalities qrs 109 qtc 422 Discharge Plan Discharge Patient Disposition: Xfer Psychiatric Hosp Clinical Impression: Schizophrenia Condition: Stable Prescriptions: No Action magnesium oxide 200 mg magnesium tablet 200 mg PO DAILY Rx Instructions: 190 mg daily Ultra CoQ10 75 mg capsule 75 mg PO DAILY lecithin 1,200 mg capsule 1,200 mg PO .2 daily Rx Instructions: give with meal/snack Digestive Advantage Probio-Pre 400 million cell tablet,chewable 400 cell PO DAILY vitamin B complex Tablet 1 tab PO DAILY melatonin 12 mg tablet 12 mg PO QPM PRN (Reason: Sleep) (DME) Orthopedic Shoes with Custom Insoles See Rx Instructions .Route .MEDSUPPLY Qty: 1 0RF Rx Instructions: As directed by EILEEN&O- [place] Patient sertraline 100 mg Tablet 200 mg PO DAILY amlodipine 5 mg Tablet 5 mg PO DAILY bisacodyl 5 mg Tablet,Delayed Release (Dr/Ec) 5 mg PO DAILY ondansetron HCl 4 mg tablet 4 mg PO Q6H PRN (Reason: nausea and vomiting) Qty: 20 0RF tamsulosin 0.4 mg Capsule 0.4 mg PO QPM metformin 1,000 mg Tablet 500 mg PO DAILY Referrals: Chu Ramsey DO [Primary Care Provider] - Coding Level of Care Code ED [employer] for Jossg Tracey
[2023-08-12 18:08] LABS: Influenza A by IFA negative (Negative); Influenza B by IFA negative (Negative); SARS Covid-2 Antigen negative (Negative)
[2023-08-12 18:14] LABS: RSV Transfer Patient (ED) Negative (Negative)
[2023-08-12 20:06] LABS: Amphetamines Screen Urine Negative (Negative); Barbiturates Screen Urine Negative (Negative); Benzodiazepines Screen Urine Negative (Negative); Cocaine Screen Urine Negative (Negative); Opiate Screen Urine Negative (Negative); PCP Screen Urine Negative (Negative); THC Screen Urine Negative (Negative)
[2023-08-12 20:52] LABS: Add Urine Microscopic? NO; Charge for UA Resulting for Rev
[2023-08-12 20:53] LABS: Bilirubin Urine Neg (Negative); Blood Urine Neg (Negative); Glucose Urine UA Norm (Normal); Ketones Urine Negative (Negative); Leukocyte Esterase Urine Negative (Negative); Nitrate Urine Negative (Negative); Protein Urine Neg (Negative); Sulfosalicylic Acid Urine Negative (Negative); Urine Appearance Clear (CLEAR); Urine Color Yellow (Yellow); Urobilinogen Urine Neg (Negative); pH Urine 8 (5-7)
--- NOTE | 2023-08-12 23:00 | PC.NURSE ---
Pt served with copy of 96 [facility] by this RN and security. Pt A&Ox3. no questions at this time.
[2023-08-13 00:16] VITALS: BP 134/79; PULSE 55; RESP 18; O2SAT 93
== END 2023-08-13 00:16 ==
PROVIDERS: Emergency Provider Emergency Medicine; PCP Emergency Medicine Emergency Medical Services
DX: F20.9 Schizophrenia, unspecified (principal); Z79.84 Long term (current) use of oral hypoglycemic drugs; Z11.52 Encounter for screening for COVID-19; Z72.0 Tobacco use
CPT/HCPCS: 36415; 80053; 80306; 80307; 81003; 84443; 85025; 87426; 87804; 87899; 93005; 99284

== ENCOUNTER 2023-09-04 12:57 | Oncology outpatient (recurring) (ONCR) | payer OTHER, SELFPAY | END 2023-09-05 23:59 | disposition home or self-care (01) | LOC: ONCMED 12:57 | PROVIDERS: PCP Emergency Medicine Emergency Medical Services; Visit Provider Internal Medicine Medical Oncology | DX: C20 Malignant neoplasm of rectum (principal); C78.7 Secondary malignant neoplasm of liver and intrahepatic bile duct; F17.210 Nicotine dependence, cigarettes, uncomplicated | CPT/HCPCS: 99205 ==

== ENCOUNTER → 2023-09-24 09:48 | Outpatient (BNVA) | payer OTHER, SELFPAY | PROVIDERS: PCP Emergency Medicine Emergency Medical Services; Visit Provider Surgery | DX: C20 Malignant neoplasm of rectum (principal) | CPT/HCPCS: 99214 ==

== ENCOUNTER 2023-09-30 09:31 | Day surgery (SDC) | payer OTHER, SELFPAY ==
[2023-09-30] VITALS (9 sets, daily range): BP systolic 91–129; BP diastolic 52–66; PULSE 86–101; RESP 12–18; TEMP 36.4–36.8; O2SAT 92–100; BMI 20.9
[2023-09-30 10:08] LABS: Glucose Point of Care 91 mg/dL (70-110)
[2023-09-30] MEDS: sodium chloride 0.9% 1,000 ML 30 ML IV (10:09)
--- NOTE | 2023-09-30 10:10 | SC_ITS ---
WS: [id number] INTRAOPERATIVE TECHNIQUE: 3 Spot fluoroscopic images for intraoperative purposes. FLUOROSCOPY TIME: 21.3 seconds CLINICAL INFORMATION: intraoperative COMPARISON: None. FINDINGS: RIGHT Port-A-Cath traverses the SVC. Distal tip difficult to visualize but appears to be within the d istal SVC. No visualized pneumothorax. IMPRESSION: Images obtained for intraoperative purposes.
--- NOTE | 2023-09-30 10:29 | P.HPUD_ITS ---
Surgery/Procedure H&P Update DATE OF PROCEDURE: September 30, 2023 DATE H&P PERFORMED: 09/24/23 H&P UPDATE INFORMATION: I have reviewed H&P completed within last 30 days, I have examined patient prior to procedure, No changes to prior documentation and H&P is in [facility] EMR on date indicated PLANNED PROCEDURE: Operation Date: 09/30/23 11:20 Proposed Procedures p Portacath Placement(Not Applicable) - Sebastian Daley MD
[2023-09-30] MEDS: ceFAZolin 2,000 MG in sodium chloride 0.9% (plus) 50 ML 100 MG IV (11:17)
[2023-09-30] MEDS: heparin, porcine 1,000 unit/mL INJ 10 mL 10000 UNIT IRRIGATION (11:46)
[2023-09-30] MEDS: lidocaine-epi 1% 20 mL INJ INJECTION (11:48)
--- NOTE | 2023-09-30 11:59 | P.OP_ITS ---
Operative Report Date of procedure: September 30, 2023 Pre-op diagnosis: Colon cancer Post-op diagnosis: Same Post-op findings: Normal vascular anatomy Procedure done: Insertion of right IJ Port-A-Cath Implants: Bard Port-A-Cath Surgeon: Sebastian Daley MD Landscape Specialist: MARISSA OR Staff Estimated blood loss: 10 Complications: none Brief History: This is a 73-year-old male with history of colon cancer who presents to my office for Port-A-Cath placement. After discussion of all risk benefits as documented in my preop note we decided to proceed. Procedure: Patient was brought into the OR, he was placed in a supine position, mother anesthesia sedation was given. Timeout was conducted after the skin was prepped and draped in the usual sterile fashion. I then proceeded to identify the right IJ vein with ultrasound, I infiltrated local anesthesia on top of the vein. I then proceeded to cannulate the vein under direct ultrasound guidance using an 18-gauge needle, the needle tip was seen entering the vein and immediate return of blood was noted. A wire was advanced through the needle and the needle was removed. The position of the wire was verified with ultrasound and fluoroscopy. The wire was then fixed to the drapes. I then placed my attention to the chest, local anesthesia was infiltrated in the previously marked area on the chest and then a tract connecting the chest to the wire insertion site in the neck. I then proceeded to make a 3.5 cm incision in the right upper chest, the incision was deepened to subcutaneous tissue with electrocautery and electrocautery was used to create the subcutaneous pocket to house the Port-A-Cath. I then proceeded to use a hemostat to create a tunnel from the chest wound to the neck. I then proceeded to make a 0.5 cm incision at the l evel of the wire insertion site in the neck. Hemostasis was verified. I then placed the Port-A-Cath in the pocket and tunneled the catheter using the provided tunneler. The catheter was cut to appropriate length under fluoroscopy guidance and then flushed. I then proceeded to insert an introducer with a peel-off sheath over the wire under direct fluoroscopic guidance. I then remove the wire and the introducer leaving the peel-off sheath in place. The catheter was then advanced through the peel-off sheath and the peel-off sheath was removed leaving the catheter in place. Fluoroscopy showed evidence of Adequate catheter position. I then proceeded to access the port; the port was retrieving blood and flushing fine, I then hep-locked the catheter. Hemostasis was verified. The wound was closed in layers using #3-0 Vicryl for the subcutaneous tissue and #4 Monocryl for the skin. Dermabond was applied. At the end of the procedure all counts were correct. The patient tolerated well the procedure and was transferred to the PACU in stable condition.
--- NOTE | 2023-09-30 13:30 | ANE.PACU2 ---
Inpatient post-anesthesia follow up: Airway intact: Yes Vital signs: Temperature 97.8 F Pulse Rate 86 Respiratory Rate 16 Blood Pressure 121/66 Pulse Oximetry 94 Oxygen Delivery Me thod Room Air Oxygen Flow Rate 8 Fraction of Inspir ed Oxygen Hydration adequate: Yes Nausea and vomiting: No Pain level: 1 Mental status: Baseline
== END 2023-09-30 13:30 | disposition home or self-care (01) ==
PROVIDERS: PCP Emergency Medicine Emergency Medical Services; Visit Provider Surgery
PROC: (CPT 36561; principal; 2023-09-30 11:10)
DX: C18.9 Malignant neoplasm of colon, unspecified (principal); C20 Malignant neoplasm of rectum; N40.1 Benign prostatic hyperplasia with lower urinary tract symptoms; N13.8 Other obstructive and reflux uropathy; F17.210 Nicotine dependence, cigarettes, uncomplicated
CPT/HCPCS: 36561; 36416; 76000; 77001; 82962; C1788; J0690; J1644; J2704; J3010; J7030

== ENCOUNTER 2023-10-04 11:30 | Oncology outpatient (recurring) (ONCR) | payer OTHER, SELFPAY ==
[2023-10-02 08:03] LABS: Basophils % 0.3 %; Eosinophils # 0.6 10^3/uL (0.0-0.8); Eosinophils % 6.5 %; Hematocrit 40.2 % (37-53); Lymphocytes # 1.2 10^3/uL (0.8-4.8); Lymphocytes % 14.2 %; Mean Corpuscular HGB Conc 32.6 g/dL (30-55); Mean Corpuscular Hemoglobin 28.8 pg (27-33); Mean Corpuscular Volume 88.4 fl (82-101); Monocytes # 0.6 10^3/uL (0.2-0.9); Monocytes % 6.9 %; Neutrophils # 6.15 10^3/uL (1.8-7.7); Neutrophils % 71.8 %; Nucleated Red Blood Cells % 0 %; Platelet Count 201 10^3/cmm (157-399); Red Blood Count 4.55 10^6/uL (3.85-5.65); Red Cell Distribution Width 13.7 % (12.1-15.1); White Blood Count 8.58 10^3/uL (3.29-11.43)
[2023-10-02 08:42] LABS: Alanine Aminotransferase 15 U/L (0-41); Albumin Level 3.8 g/dL (3.5-5.2); Alkaline Phosphatase 132 U/L (40-130); Anion Gap 14.1 (5-19); Aspartate Amino Transferase 16 U/L (0-40); Blood Urea Nitrogen 14 mg/dL (8-23); Calcium 8.9 mg/dL (8.5-10.5); Carbon Dioxide 27 mmol/L (22-29); Chloride 101 mmol/L (98-107); Creatinine Clr Calc Pharmacy 85.5292; Globulin 2.8 g/dL (1.3-4.6); Glucose 144 mg/dL (65-115); Osmolality Calculated 289 mOsm/kg (285-295); Potassium 4.1 mmol/L (3.5-5.1); Sodium 138 mmol/L (136-145); Total Bilirubin 0.2 mg/dL (0.15-1.2); Total Protein 6.6 g/dL (6.6-8.7)
[2023-10-02] MEDS: sodium chloride 0.9% 250 ML 75 ML IV (09:11)
[2023-10-02] MEDS: palonosetron 0.25 mg/5 mL SDV IVP (09:14)
[2023-10-02] MEDS: bevacizumab-awwb 370 MG in sodium chloride 0.9% (100 ml) 100 ML 100 MG IV (09:53)
[2023-10-02] MEDS: oxaliplatin 100 MG, oxaliplatin 60 MG in dextrose 5% 250 ML 141 MG IV (11:41)
[2023-10-02] MEDS: leucovorin 770 MG in dextrose 5% 250 ML 62.5 MG IV (11:42)
[2023-10-02] MEDS: dextrose 5% 250 ML 75 ML IV (11:47)
[2023-10-02] MEDS: SODIUM CHLORIDE IV (13:58)
[2023-10-02] MEDS: ELASTOMERIC PUMP PUMP IV (13:58)
[2023-10-02] MEDS: FLUOROURACIL IV (13:58)
[2023-10-02 14:06] VITALS: BP 117/74; PULSE 93; O2SAT 95
[2023-10-04 11:27] VITALS: BP 124/78; PULSE 87; RESP 17; TEMP 36.7; O2SAT 98
== END 2023-10-06 23:59 | disposition home or self-care (01) ==
PROVIDERS: PCP Emergency Medicine Emergency Medical Services; Visit Provider Internal Medicine Medical Oncology
DX: Z45.1 Encounter for adjustment and management of infusion pump (principal); Z53.9 Procedure and treatment not carried out, unspecified reason
CPT/HCPCS: 80053; 82378; 85025; 96367; 96368; 96375; 96413; 96415; 96416; 96417; 96523; 99214; J0640; J1100; J1642; J2469; J7050; J7060; J9190; J9263; Q5107

== ENCOUNTER → 2023-10-08 13:05 | Outpatient (BNVA) | payer OTHER, SELFPAY | PROVIDERS: PCP Emergency Medicine Emergency Medical Services; Visit Provider Surgery | DX: C18.9 Malignant neoplasm of colon, unspecified (principal); C78.7 Secondary malignant neoplasm of liver and intrahepatic bile duct | CPT/HCPCS: 99213 ==

== ENCOUNTER 2023-11-01 11:00 | Oncology outpatient (recurring) (ONCR) | payer OTHER, SELFPAY ==
[2023-10-16 08:06] LABS: Basophils % 0.1 %; Eosinophils # 0.1 10^3/uL (0.0-0.8); Eosinophils % 1.3 %; Hematocrit 40.1 % (37-53); Lymphocytes # 2.1 10^3/uL (0.8-4.8); Lymphocytes % 26.6 %; Mean Corpuscular HGB Conc 33.4 g/dL (30-55); Mean Corpuscular Hemoglobin 28.8 pg (27-33); Mean Corpuscular Volume 86.1 fl (82-101); Monocytes # 0.5 10^3/uL (0.2-0.9); Monocytes % 6.6 %; Neutrophils # 5.12 10^3/uL (1.8-7.7); Neutrophils % 65.3 %; Nucleated Red Blood Cells % 0 %; Platelet Count 227 10^3/cmm (157-399); Red Blood Count 4.66 10^6/uL (3.85-5.65); Red Cell Distribution Width 14.1 % (12.1-15.1); White Blood Count 7.85 10^3/uL (3.29-11.43)
[2023-10-16 08:23] LABS: Alanine Aminotransferase 18 U/L (0-41); Albumin Level 4.1 g/dL (3.5-5.2); Alkaline Phosphatase 131 U/L (40-130); Anion Gap 15.5 (5-19); Aspartate Amino Transferase 21 U/L (0-40); Blood Urea Nitrogen 10 mg/dL (8-23); Calcium 9.1 mg/dL (8.5-10.5); Carbon Dioxide 25 mmol/L (22-29); Chloride 102 mmol/L (98-107); Globulin 2.9 g/dL (1.3-4.6); Glucose 175 mg/dL (65-115); Osmolality Calculated 289 mOsm/kg (285-295); Potassium 4.5 mmol/L (3.5-5.1); Sodium 138 mmol/L (136-145); Total Bilirubin 0.3 mg/dL (0.15-1.2)
[2023-10-16] MEDS: sodium chloride 0.9% 250 ML 75 ML IV (09:25)
[2023-10-16] MEDS: palonosetron 0.25 mg/5 mL SDV IVP (09:25)
[2023-10-16] MEDS: BEVACIZUMAB AWWB IV (10:08)
[2023-10-16] MEDS: SODIUM CHLORIDE 0.9% IV (10:08)
[2023-10-16] MEDS: dextrose 5% 250 ML 75 ML IV (10:43)
[2023-10-16] MEDS: oxaliplatin 100 MG, oxaliplatin 60 MG in dextrose 5% 250 ML 141 MG IV (10:51)
[2023-10-16] MEDS: leucovorin 750 MG in dextrose 5% 250 ML 62.5 MG IV (10:51)
[2023-10-16] MEDS: fluorouraciL 4,500 MG, elastomeric pump 1 PUMP in sodium chloride 0.9% (100 ml) 2 ML IV (13:07)
[2023-10-16 13:10] VITALS: BP 178/78; PULSE 100; RESP 18; TEMP 36.6; O2SAT 98
[2023-10-18 11:13] VITALS: BP 133/75; PULSE 93; TEMP 35.9; O2SAT 98
[2023-10-30 08:06] LABS: Basophils % 0.2 %; Eosinophils # 0.1 10^3/uL (0.0-0.8); Eosinophils % 1.2 %; Hematocrit 36.1 % (37-53); Lymphocytes % 30.8 %; Mean Corpuscular HGB Conc 32.7 g/dL (30-55); Mean Corpuscular Hemoglobin 28.4 pg (27-33); Mean Platelet Volume 9.6 fL (7.4-10.4); Monocytes # 0.9 10^3/uL (0.2-0.9); Monocytes % 13.2 %; Neutrophils # 3.47 10^3/uL (1.8-7.7); Neutrophils % 54.1 %; Nucleated Red Blood Cells % 0 %; Platelet Count 112 10^3/cmm (157-399); Red Blood Count 4.15 10^6/uL (3.85-5.65); Red Cell Distribution Width 15.1 % (12.1-15.1); White Blood Count 6.42 10^3/uL (3.29-11.43)
[2023-10-30 08:32] LABS: Carcinoembryonic Antigen 33.5 ng/mL (0.0-4.7)
[2023-10-30 08:37] LABS: Add Urine Culture? Yes; Bacteria Urine 2+ /hpf; Bilirubin Urine Neg (Negative); Blood Urine Neg (Negative); Glucose Urine UA Norm (Normal); Ketones Urine Negative (Negative); Leukocyte Esterase Urine 1+ (Negative); Nitrate Urine Negative (Negative); Protein Urine Neg (Negative); Urine Appearance SL Hazy (CLEAR); Urine Color Yellow (Yellow); Urobilinogen Urine Norm (Negative); WBC Urine 25-40 /hpf (0-5); pH Urine 6.5 (5-7)
[2023-10-30 08:43] LABS: Alanine Aminotransferase 15 U/L (0-41); Albumin Level 3.9 g/dL (3.5-5.2); Alkaline Phosphatase 119 U/L (40-130); Anion Gap 13.3 (5-19); Aspartate Amino Transferase 15 U/L (0-40); Blood Urea Nitrogen 19 mg/dL (8-23); Calcium 8.8 mg/dL (8.5-10.5); Carbon Dioxide 26 mmol/L (22-29); Chloride 103 mmol/L (98-107); Creatinine Clr Calc Pharmacy 84.4209; Globulin 2.8 g/dL (1.3-4.6); Glucose 109 mg/dL (65-115); Osmolality Calculated 289 mOsm/kg (285-295); Potassium 4.3 mmol/L (3.5-5.1); Sodium 138 mmol/L (136-145); Total Bilirubin 0.3 mg/dL (0.15-1.2); Total Protein 6.7 g/dL (6.6-8.7)
[2023-10-30] MEDS: sodium chloride 0.9% 250 ML 75 ML IV (11:04)
[2023-10-30] MEDS: palonosetron 0.25 mg/5 mL SDV IVP (11:06)
[2023-10-30] MEDS: bevacizumab-awwb 370 MG in sodium chloride 0.9% (100 ml) 100 ML 300 MG IV (11:33)
[2023-10-30] MEDS: leucovorin 770 MG in dextrose 5% 250 ML 62.5 MG IV (12:03)
[2023-10-30] MEDS: oxaliplatin 100 MG, oxaliplatin 60 MG in dextrose 5% 250 ML 141 MG IV (12:04)
[2023-10-30] MEDS: dextrose 5% 250 ML 75 ML IV (12:10)
[2023-10-30] MEDS: fluorouraciL 4,650 MG in elastomeric pump 1 PUMP IV (14:29)
[2023-10-30 14:31] VITALS: BP 158/90; PULSE 94; TEMP 36.6; O2SAT 93
[2023-11-01 11:16] VITALS: BP 126/75; PULSE 78; TEMP 36.4; O2SAT 96
== END 2023-11-05 23:59 | disposition home or self-care (01) ==
PROVIDERS: PCP Emergency Medicine Emergency Medical Services; Visit Provider Internal Medicine Medical Oncology
DX: Z45.1 Encounter for adjustment and management of infusion pump (principal); Z53.9 Procedure and treatment not carried out, unspecified reason
CPT/HCPCS: 80053; 81001; 82378; 85025; 87086; 96365; 96367; 96368; 96374; 96375; 96413; 96415; 96416; 96417; 96523; 99214; J0640; J1100; J2469; J7050; J7060; J9190; J9263; Q5107

== ENCOUNTER → 2023-11-06 14:41 | Outpatient (BNVA) | payer OTHER, SELFPAY | PROVIDERS: PCP Emergency Medicine Emergency Medical Services; Visit Provider Dermatology | DX: D40.8 Neoplasm of uncertain behavior of other specified male genital organs (principal); R59.0 Localized enlarged lymph nodes; D22.5 Melanocytic nevi of trunk; C18.9 Malignant neoplasm of colon, unspecified; Z85.828 Personal history of other malignant neoplasm of skin | CPT/HCPCS: 11102; 99214 ==

== ENCOUNTER → 2023-11-20 14:11 | Outpatient (BNVA) | payer OTHER, SELFPAY | PROVIDERS: PCP Emergency Medicine Emergency Medical Services; Visit Provider Dermatology | DX: L27.1 Localized skin eruption due to drugs and medicaments taken internally (principal) | CPT/HCPCS: 99214 ==

== ENCOUNTER 2023-12-25 13:15 | Oncology outpatient (recurring) (ONCR) | payer OTHER, SELFPAY ==
[2023-12-09 08:29] LABS: Basophils % 0.6 %; Eosinophils # 0.1 10^3/uL (0.0-0.8); Eosinophils % 0.7 %; Lymphocytes % 28.3 %; Mean Corpuscular Hemoglobin 29.7 pg (27-33); Mean Corpuscular Volume 90.1 fl (82-101); Mean Platelet Volume 9.9 fL (7.4-10.4); Monocytes # 0.5 10^3/uL (0.2-0.9); Monocytes % 7.6 %; Neutrophils # 4.44 10^3/uL (1.8-7.7); Neutrophils % 62.5 %; Nucleated Red Blood Cells % 0 %; Platelet Count 164 10^3/cmm (157-399); Red Blood Count 4.44 10^6/uL (3.85-5.65); Red Cell Distribution Width 17.3 % (12.1-15.1)
[2023-12-09 08:48] LABS: Alanine Aminotransferase 16 U/L (0-41); Alkaline Phosphatase 94 U/L (40-130); Anion Gap 14.4 (5-19); Aspartate Amino Transferase 16 U/L (0-40); Blood Urea Nitrogen 17 mg/dL (8-23); Calcium 9.1 mg/dL (8.5-10.5); Carbon Dioxide 26 mmol/L (22-29); Chloride 100 mmol/L (98-107); Globulin 2.9 g/dL (1.3-4.6); Glucose 137 mg/dL (65-115); Osmolality Calculated 286 mOsm/kg (285-295); Potassium 4.4 mmol/L (3.5-5.1); Sodium 136 mmol/L (136-145); Total Bilirubin 0.3 mg/dL (0.15-1.2); Total Protein 6.9 g/dL (6.6-8.7)
[2023-12-09] MEDS: sodium chloride 0.9% 250 ML 75 ML IV (11:11)
[2023-12-09] MEDS: palonosetron 0.25 mg/5 mL SDV IVP (11:12)
[2023-12-09] MEDS: dextrose 5% 250 ML 75 ML IV (12:32)
[2023-12-09] MEDS: leucovorin 720 MG in dextrose 5% 250 ML 62.5 MG IV (12:37)
[2023-12-09] MEDS: fluorouraciL 4,350 MG, elastomeric pump 1 PUMP in sodium chloride 0.9% (100 ml) 5 ML IV (15:00)
[2023-12-23 08:18] LABS: Basophils % 0.2 %; Eosinophils # 0.1 10^3/uL (0.0-0.8); Eosinophils % 1.1 %; Hematocrit 37.5 % (37-53); Lymphocytes # 1.9 10^3/uL (0.8-4.8); Lymphocytes % 33.5 %; Mean Corpuscular HGB Conc 33.3 g/dL (30-55); Mean Corpuscular Hemoglobin 30.4 pg (27-33); Mean Corpuscular Volume 91.2 fl (82-101); Monocytes # 0.6 10^3/uL (0.2-0.9); Monocytes % 10.8 %; Neutrophils # 3.07 10^3/uL (1.8-7.7); Neutrophils % 54.2 %; Nucleated Red Blood Cells % 0 %; Platelet Count 143 10^3/cmm (157-399); Red Blood Count 4.11 10^6/uL (3.85-5.65); Red Cell Distribution Width 16.8 % (12.1-15.1); White Blood Count 5.65 10^3/uL (3.29-11.43)
[2023-12-23 08:43] LABS: Carcinoembryonic Antigen 22.2 ng/mL (0.0-4.7)
[2023-12-23 08:54] LABS: Alanine Aminotransferase 19 U/L (0-41); Albumin Level 4.1 g/dL (3.5-5.2); Alkaline Phosphatase 92 U/L (40-130); Aspartate Amino Transferase 18 U/L (0-40); Blood Urea Nitrogen 15 mg/dL (8-23); Calcium 8.7 mg/dL (8.5-10.5); Carbon Dioxide 24 mmol/L (22-29); Chloride 100 mmol/L (98-107); Globulin 2.7 g/dL (1.3-4.6); Glucose 134 mg/dL (65-115); Osmolality Calculated 285 mOsm/kg (285-295); Sodium 136 mmol/L (136-145); Total Bilirubin 0.3 mg/dL (0.15-1.2); Total Protein 6.8 g/dL (6.6-8.7)
[2023-12-23] MEDS: sodium chloride 0.9% 250 ML 75 ML IV (10:33)
[2023-12-23] MEDS: palonosetron 0.25 mg/5 mL SDV IVP (10:33)
[2023-12-23] MEDS: dexamethasone 4 mg/mL INJ 5 mL 12 MG IVP (10:38)
[2023-12-23] MEDS: bevacizumab-awwb 370 MG in sodium chloride 0.9% (100 ml) 100 ML 260 MG IV (11:10)
[2023-12-23] MEDS: leucovorin 770 MG in dextrose 5% 250 ML 62.5 MG IV (11:50)
[2023-12-23] MEDS: fluorouraciL 4,650 MG, elastomeric pump 1 PUMP in sodium chloride 0.9% (100 ml) 0 ML IV (14:32)
[2023-12-23 14:45] VITALS: BP 128/82; PULSE 92; RESP 17; TEMP 36.6; O2SAT 98
== END 2024-01-05 23:59 | disposition home or self-care (01) ==
PROVIDERS: Nurse Practitioner Family; PCP Emergency Medicine Emergency Medical Services; Visit Provider Internal Medicine Medical Oncology
DX: Z53.9 Procedure and treatment not carried out, unspecified reason (principal); Z45.1 Encounter for adjustment and management of infusion pump
CPT/HCPCS: 80053; 82378; 85025; 96365; 96366; 96367; 96368; 96375; 96413; 96415; 96416; 96417; 96523; 99214; J0640; J1100; J2469; J7050; J7060; J9190; J9263; Q5107

== ENCOUNTER → 2024-01-02 13:26 | Outpatient (BNVA) | payer OTHER, SELFPAY | PROVIDERS: PCP Emergency Medicine Emergency Medical Services; Visit Provider Dermatology | DX: L27.1 Localized skin eruption due to drugs and medicaments taken internally (principal); C18.9 Malignant neoplasm of colon, unspecified; K40.90 Unilateral inguinal hernia, without obstruction or gangrene, not specified as recurrent; D48.5 Neoplasm of uncertain behavior of skin; Z85.828 Personal history of other malignant neoplasm of skin | CPT/HCPCS: 99214 ==

== ENCOUNTER 2024-01-20 07:30 | Oncology outpatient (recurring) (ONCR) | payer OTHER, SELFPAY ==
[2024-01-06 07:56] LABS: Basophils % 0.4 %; Eosinophils % 0.8 %; Hematocrit 38.2 % (37-53); Lymphocytes # 1.8 10^3/uL (0.8-4.8); Lymphocytes % 35.6 %; Mean Corpuscular Hemoglobin 30.4 pg (27-33); Mean Corpuscular Volume 92.3 fl (82-101); Mean Platelet Volume 10.4 fL (7.4-10.4); Monocytes # 0.6 10^3/uL (0.2-0.9); Monocytes % 12.3 %; Neutrophils # 2.57 10^3/uL (1.8-7.7); Neutrophils % 50.7 %; Nucleated Red Blood Cells % 0 %; Platelet Count 116 10^3/cmm (157-399); Red Blood Count 4.14 10^6/uL (3.85-5.65); Red Cell Distribution Width 16.6 % (12.1-15.1); White Blood Count 5.06 10^3/uL (3.29-11.43)
[2024-01-06 08:11] LABS: Alanine Aminotransferase 14 U/L (0-41); Alkaline Phosphatase 84 U/L (40-130); Anion Gap 13.6 (5-19); Aspartate Amino Transferase 18 U/L (0-40); Blood Urea Nitrogen 12 mg/dL (8-23); Calcium 8.9 mg/dL (8.5-10.5); Carbon Dioxide 26 mmol/L (22-29); Chloride 102 mmol/L (98-107); Globulin 2.5 g/dL (1.3-4.6); Glucose 112 mg/dL (65-115); Osmolality Calculated 285 mOsm/kg (285-295); Potassium 4.6 mmol/L (3.5-5.1); Sodium 137 mmol/L (136-145); Total Bilirubin 0.3 mg/dL (0.15-1.2); Total Protein 6.5 g/dL (6.6-8.7)
[2024-01-06] MEDS: sodium chloride 0.9% 250 ML 75 ML IV (10:13)
[2024-01-06] MEDS: palonosetron 0.25 mg/5 mL SDV IVP (10:16)
[2024-01-06] MEDS: dexamethasone 4 mg/mL INJ 5 mL 12 MG IV (10:18)
[2024-01-06] MEDS: bevacizumab-awwb 370 MG in sodium chloride 0.9% (100 ml) 100 ML 250 MG IV (10:37)
[2024-01-06] MEDS: oxaliplatin 100 MG, oxaliplatin 60 MG in dextrose 5% 250 ML 141 MG IV (11:38)
[2024-01-06] MEDS: leucovorin 770 MG in dextrose 5% 250 ML 62.5 MG IV (11:38)
[2024-01-06] MEDS: dextrose 5% 250 ML 75 ML IV (11:45)
[2024-01-06 13:56] VITALS: BP 149/96; PULSE 74; TEMP 36.1; O2SAT 96
[2024-01-06] MEDS: fluorouraciL 4,650 MG in elastomeric pump 1 PUMP IV (13:57)
[2024-01-08 12:09] VITALS: BP 138/88; PULSE 87; O2SAT 92
--- NOTE | 2024-01-16 13:30 | CTR_ITS ---
PROCEDURE INFORMATION: Exam: CT Abdomen And Pelvis With Contrast Exam date and time: 01/16/2024 2:21 PM Age: 73 years old Clinical indication: Condition or disease; Cancer; Other: Colon; Prior surgery; Surgery date: 6+ months; Surgery type: Gb, hernia; Additional info: Colon cancer, please complete prior to ov in 2 weeks TECHNIQUE: Imaging protocol: Computed tomography of the abdomen and pelvis with contrast. Radiation optimization: All CT scans at this facility use at least one of these dose optimization techniques: automated exposure control; mA and/or kV adjustment per patient size (includes targeted exams where dose is matched to clinical indication); or iterative reconstruction. Contrast material: OMNI 350; Contrast volume: 100 ml; Contrast route: INTRAVENOUS (IV); COMPARISON: CT abdomen pelvis w con* [id number] 06/04/2023 5:02 PM RADIATION DOSE METRICS: Total DLP (mGy-cm): 340.81 FINDINGS: Liver: Scattered hepatic hypodensities with the largest measuring 3.6 x 3.7 centimeters in segment 8 (series 4, image 11), previously measuring 3.1 x 3.4 centimeters when measured similarly. Segment 7/6 hypodensity measures 3.4 x 3.5 centimeters (series 4, image 17), previously measuring 2.7 x 2.4 centimeters when measured similarly. Gallbladder and biliary ducts: There has been a cholecystectomy. Pancreas: Normal. No ductal dilation. Spleen: The spleen demonstrates punctate calcifications, consistent with remote granulomatous organism exposure. Adrenal glands: Normal. No mass. Kidneys and ureters: Normal. No hydronephrosis. Stomach and bowel: Series 4, image 62 shows sigmoid segmental symmetrical bowel wall thickening. Series 4, image 63 shows focal asymmetrical wall thickening at the distal end of the sigmoid segment. Appendix: No evidence of appendicitis. Intraperitoneal space: Unremarkable. No free air. No significant fluid collection. Vasculature: Scattered calcified atherosclerotic plaques of the abdominal aorta and iliac arteries without significant stenosis. Lymph nodes: Unremarkable. No enlarged lymph nodes. Urinary bladder: Unremarkable as visualized. Reproductive: Enlarged prostate with nodular indentation of the bladder base. Bones/joints: Unremarkable. No acute fracture. Soft tissues: Small bilateral fat containing inguinal hernias. CT/CT abdomen pelvis w con* [id number] IMPRESSION: 1. Multiple hypodense hepatic lesions suspicious for metastases observed, with slight increase in size noted in some. 2. Circumferential sigmoid wall thickening and associated focal 1.2 centimeter asymmetrical wall thickening concerning for colon cancer. Consider further evaluation with colonoscopy. 3. Prostatomegaly with nodular indentation of the bladder base. Defer to clinical and laboratory assessment/PSA levels.
[2024-01-16] MEDS: iohexol 350 mg/mL 500 mL Btl (per mL) PO (13:39)
[2024-01-16] MEDS: iohexol 350 mg/mL 500 mL Btl (per mL) IV (14:28)
[2024-01-20 07:52] VITALS: BP 148/87; PULSE 91; RESP 16; TEMP 36.4; O2SAT 96
[2024-01-20 07:56] LABS: Basophils % 0.5 %; Eosinophils # 0.1 10^3/uL (0.0-0.8); Eosinophils % 1.7 %; Hematocrit 36.5 % (37-53); Lymphocytes # 1.4 10^3/uL (0.8-4.8); Lymphocytes % 35.3 %; Mean Corpuscular HGB Conc 33.2 g/dL (30-55); Mean Corpuscular Hemoglobin 30.8 pg (27-33); Mean Corpuscular Volume 92.9 fl (82-101); Mean Platelet Volume 10.2 fL (7.4-10.4); Monocytes # 0.7 10^3/uL (0.2-0.9); Monocytes % 17.6 %; Neutrophils # 1.82 10^3/uL (1.8-7.7); Neutrophils % 44.7 %; Nucleated Red Blood Cells % 0 %; Platelet Count 103 10^3/cmm (157-399); Red Blood Count 3.93 10^6/uL (3.85-5.65); Red Cell Distribution Width 16.4 % (12.1-15.1); White Blood Count 4.08 10^3/uL (3.29-11.43)
[2024-01-20 08:21] LABS: Carcinoembryonic Antigen 18.3 ng/mL (0.0-4.7)
[2024-01-20 08:32] LABS: Alanine Aminotransferase 15 U/L (0-41); Albumin Level 3.7 g/dL (3.5-5.2); Alkaline Phosphatase 93 U/L (40-130); Aspartate Amino Transferase 18 U/L (0-40); Blood Urea Nitrogen 12 mg/dL (8-23); Calcium 8.3 mg/dL (8.5-10.5); Carbon Dioxide 22 mmol/L (22-29); Chloride 103 mmol/L (98-107); Creatinine Clr Calc Pharmacy 87.1647; Globulin 2.6 g/dL (1.3-4.6); Glucose 116 mg/dL (65-115); Osmolality Calculated 287 mOsm/kg (285-295); Sodium 138 mmol/L (136-145); Total Bilirubin 0.2 mg/dL (0.15-1.2); Total Protein 6.3 g/dL (6.6-8.7)
[2024-01-20 08:34] LABS: Anion Gap 17.2 (5-19); Potassium 4.2 mmol/L (3.5-5.1)
[2024-01-20] MEDS: sodium chloride 0.9% 250 ML 75 ML IV (08:55)
[2024-01-20] MEDS: dexamethasone 4 mg/mL INJ 5 mL 12 MG IV (08:56)
[2024-01-20] MEDS: palonosetron 0.25 mg/5 mL SDV IVP (09:03)
[2024-01-20] MEDS: bevacizumab-awwb 370 MG in sodium chloride 0.9% (100 ml) 100 ML 240 MG IV (09:20)
[2024-01-20] MEDS: dextrose 5% 250 ML 75 ML IV (10:03)
[2024-01-20] MEDS: leucovorin 780 MG in dextrose 5% 250 ML 62.5 MG IV (10:05)
[2024-01-20] MEDS: fluorouraciL 4,650 MG in elastomeric pump 1 PUMP IV (12:42)
[2024-01-20 12:55] VITALS: BP 144/89; PULSE 87; RESP 17; TEMP 36.2; O2SAT 97
== END 2024-01-20 23:59 | disposition home or self-care (01) ==
PROVIDERS: PCP Emergency Medicine Emergency Medical Services; Visit Provider Internal Medicine Medical Oncology
DX: Z51.11 Encounter for antineoplastic chemotherapy; C78.7 Secondary malignant neoplasm of liver and intrahepatic bile duct; C18.9 Malignant neoplasm of colon, unspecified; Z51.12 Encounter for antineoplastic immunotherapy; C20 Malignant neoplasm of rectum; Z53.9 Procedure and treatment not carried out, unspecified reason; Z79.52 Long term (current) use of systemic steroids; Z79.899 Other long term (current) drug therapy
CPT/HCPCS: 74177; 80053; 82378; 85025; 96365; 96366; 96368; 96375; 96413; 96415; 96416; 96417; 96523; 99214; J0640; J1100; J2469; J7050; J7060; J9190; J9263; Q5107; Q9967

== ENCOUNTER → 2024-01-21 07:31 | Outpatient (BNVA) | payer OTHER, SELFPAY | PROVIDERS: PCP Emergency Medicine Emergency Medical Services; Visit Provider Podiatrist Foot & Ankle Surgery | DX: M79.671 Pain in right foot (principal); M79.672 Pain in left foot; G62.89 Other specified polyneuropathies | CPT/HCPCS: 99213 ==

== ENCOUNTER 2024-01-30 14:36 | Outpatient (CLI) | payer OTHER, SELFPAY ==
[2024-01-30 15:04] LABS: Basophils % 0.5 %; Lymphocytes # 1.1 10^3/uL (0.8-4.8); Lymphocytes % 28.2 %; Mean Corpuscular HGB Conc 33.4 g/dL (30-55); Mean Corpuscular Volume 92.6 fl (82-101); Mean Platelet Volume 9.7 fL (7.4-10.4); Monocytes # 0.6 10^3/uL (0.2-0.9); Monocytes % 14.8 %; Neutrophils # 2.17 10^3/uL (1.8-7.7); Neutrophils % 55.2 %; Nucleated Red Blood Cells % 0 %; Platelet Count 114 10^3/cmm (157-399); Red Blood Count 3.78 10^6/uL (3.85-5.65); Red Cell Distribution Width 16.2 % (12.1-15.1); White Blood Count 3.93 10^3/uL (3.29-11.43)
[2024-01-30 15:24] LABS: Alanine Aminotransferase 18 U/L (0-41); Alkaline Phosphatase 92 U/L (40-130); Anion Gap 15.8 (5-19); Aspartate Amino Transferase 20 U/L (0-40); Blood Urea Nitrogen 10 mg/dL (8-23); Calcium 8.4 mg/dL (8.5-10.5); Carbon Dioxide 25 mmol/L (22-29); Chloride 102 mmol/L (98-107); Globulin 2.6 g/dL (1.3-4.6); Glucose 103 mg/dL (65-115); Osmolality Calculated 285 mOsm/kg (285-295); Potassium 4.8 mmol/L (3.5-5.1); Sodium 138 mmol/L (136-145); Total Bilirubin 0.2 mg/dL (0.15-1.2); Total Protein 6.6 g/dL (6.6-8.7)
== END 2024-01-30 14:37 | disposition home or self-care (01) ==
LOC: LAB 14:37
PROVIDERS: Internal Medicine Medical Oncology; PCP Emergency Medicine Emergency Medical Services; Visit Provider Dermatology
DX: C20 Malignant neoplasm of rectum (principal); C18.9 Malignant neoplasm of colon, unspecified; C78.7 Secondary malignant neoplasm of liver and intrahepatic bile duct
CPT/HCPCS: 36415; 80053; 85025

== ENCOUNTER 2024-02-05 07:44 | Oncology outpatient (recurring) (ONCR) | payer OTHER, SELFPAY ==
[2024-02-05 08:05] LABS: Basophils % 0.3 %; Eosinophils # 0.1 10^3/uL (0.0-0.8); Eosinophils % 1.4 %; Hematocrit 35.2 % (37-53); Lymphocytes # 1.4 10^3/uL (0.8-4.8); Lymphocytes % 39.2 %; Mean Corpuscular HGB Conc 33.2 g/dL (30-55); Mean Corpuscular Hemoglobin 31.5 pg (27-33); Mean Corpuscular Volume 94.9 fl (82-101); Mean Platelet Volume 9.8 fL (7.4-10.4); Monocytes # 0.7 10^3/uL (0.2-0.9); Monocytes % 17.8 %; Neutrophils # 1.49 10^3/uL (1.8-7.7); Neutrophils % 40.8 %; Nucleated Red Blood Cells % 0 %; Platelet Count 123 10^3/cmm (157-399); Red Blood Count 3.71 10^6/uL (3.85-5.65); Red Cell Distribution Width 16.7 % (12.1-15.1); White Blood Count 3.65 10^3/uL (3.29-11.43)
[2024-02-05 08:27] LABS: Alanine Aminotransferase 14 U/L (0-41); Albumin Level 3.9 g/dL (3.5-5.2); Alkaline Phosphatase 90 U/L (40-130); Anion Gap 13.3 (5-19); Aspartate Amino Transferase 16 U/L (0-40); Blood Urea Nitrogen 11 mg/dL (8-23); Calcium 8.7 mg/dL (8.5-10.5); Carbon Dioxide 25 mmol/L (22-29); Chloride 105 mmol/L (98-107); Globulin 2.6 g/dL (1.3-4.6); Glucose 103 mg/dL (65-115); Osmolality Calculated 288 mOsm/kg (285-295); Potassium 4.3 mmol/L (3.5-5.1); Sodium 139 mmol/L (136-145); Total Bilirubin 0.3 mg/dL (0.15-1.2); Total Protein 6.5 g/dL (6.6-8.7)
== END 2024-02-05 23:59 | disposition home or self-care (01) ==
PROVIDERS: Nurse Practitioner Family; PCP Emergency Medicine Emergency Medical Services; Visit Provider Internal Medicine Medical Oncology
DX: Z53.9 Procedure and treatment not carried out, unspecified reason (principal); C18.9 Malignant neoplasm of colon, unspecified; C78.7 Secondary malignant neoplasm of liver and intrahepatic bile duct
CPT/HCPCS: 80053; 85025; 96523; 99214

== ENCOUNTER 2024-02-14 12:01 | Emergency (ER) | payer OTHER, MEDICARE, SELFPAY ==
--- NOTE | 2024-02-14 13:00 | PC.NURSE ---
Heparin flush overridden by Julia JAVED and given to Valeria Barton RN to DC pump.
--- NOTE | 2024-02-14 13:15 | PC.NURSE ---
patient to ER for chemo pump removal. Valeria Barton RN from oncology at bedside to [facility]. Port deacessed with 2 flushes and 1 heparin flush. blood return noted. patient tolerated with no complaints. insertion site covered with bandaid and gauze.
== END 2024-02-14 13:40 | disposition home or self-care (01) ==
PROVIDERS: Emergency Provider Family Medicine; PCP Emergency Medicine Emergency Medical Services
DX: Z53.8 Procedure and treatment not carried out for other reasons (principal)
CPT/HCPCS: J1642

== ENCOUNTER 2024-03-02 09:53 | Oncology outpatient (recurring) (ONCR) | payer OTHER, SELFPAY ==
[2024-02-10 08:46] LABS: Basophils % 0.6 %; Eosinophils % 0.9 %; Hematocrit 36.8 % (37-53); Lymphocytes # 1.2 10^3/uL (0.8-4.8); Lymphocytes % 36.4 %; Mean Corpuscular HGB Conc 33.7 g/dL (30-55); Mean Corpuscular Hemoglobin 31.6 pg (27-33); Mean Corpuscular Volume 93.9 fl (82-101); Mean Platelet Volume 9.6 fL (7.4-10.4); Monocytes # 0.6 10^3/uL (0.2-0.9); Monocytes % 16.4 %; Neutrophils # 1.54 10^3/uL (1.8-7.7); Neutrophils % 45.1 %; Nucleated Red Blood Cells % 0 %; Platelet Count 161 10^3/cmm (157-399); Red Blood Count 3.92 10^6/uL (3.85-5.65); Red Cell Distribution Width 16.4 % (12.1-15.1); White Blood Count 3.41 10^3/uL (3.29-11.43)
[2024-02-10 09:29] LABS: Alanine Aminotransferase 14 U/L (0-41); Albumin Level 3.9 g/dL (3.5-5.2); Alkaline Phosphatase 81 U/L (40-130); Anion Gap 14.9 (5-19); Aspartate Amino Transferase 22 U/L (0-40); Blood Urea Nitrogen 9 mg/dL (8-23); Calcium 8.5 mg/dL (8.5-10.5); Carbon Dioxide 25 mmol/L (22-29); Chloride 98 mmol/L (98-107); Globulin 2.8 g/dL (1.3-4.6); Glucose 123 mg/dL (65-115); Osmolality Calculated 278 mOsm/kg (285-295); Potassium 3.9 mmol/L (3.5-5.1); Sodium 134 mmol/L (136-145); Total Bilirubin 0.5 mg/dL (0.15-1.2); Total Protein 6.7 g/dL (6.6-8.7)
[2024-02-10] MEDS: dextrose 5% 250 ML 75 ML IV (10:26)
[2024-02-10] MEDS: palonosetron 0.25 mg/5 mL SDV IVP (10:27)
[2024-02-10] MEDS: dexamethasone 4 mg/mL INJ 5 mL 12 MG IVP (10:30)
[2024-02-10 10:47] VITALS: BP 165/91; PULSE 71; TEMP 36.2; O2SAT 96
[2024-02-10] MEDS: sodium chloride 0.9% 250 ML 75 ML IV (11:09)
[2024-02-10] MEDS: bevacizumab-awwb 380 MG in sodium chloride 0.9% (100 ml) 100 ML 260 MG IV (11:10)
[2024-02-10] MEDS: leucovorin 780 MG in dextrose 5% 250 ML 62.5 MG IV (11:51)
[2024-02-10] MEDS: fluorouraciL 4,700 MG in elastomeric pump 1 PUMP IV (14:07)
[2024-02-10 14:13] VITALS: BP 131/75; PULSE 84; RESP 16; TEMP 36.3; O2SAT 94
--- NOTE | 2024-02-12 14:30 | PC.NURSE ---
Pt called [facility] stating he did not feel good and would not be able to come to get his 5FU pumped unhooked today. Confirm that both clamps were clamped. Pt stated he's not felt like eating and took prescribed antinausea med. Encouraged pt to come in for antiemetics/hydration. Pt stated I just don't feel like it. Also encouraged pt to go to E.R. if he felt worse or was not able to come to [facility] to have 5 Fu pump unhooked. Pt voiced understanding.lc
== END 2024-03-07 23:59 | disposition home or self-care (01) ==
PROVIDERS: PCP Emergency Medicine Emergency Medical Services; Visit Provider Internal Medicine Medical Oncology
DX: Z53.9 Procedure and treatment not carried out, unspecified reason (principal)
CPT/HCPCS: 80053; 85025; 96375; 96413; 96415; 96416; 96417; J0640; J1100; J2469; J7050; J7060; J9190; J9263; Q5107

== ENCOUNTER 2024-03-08 12:57 | Emergency (ER) | payer OTHER, MEDICARE, SELFPAY ==
[2024-03-08 13:25] VITALS: BP 132/77; PULSE 79; RESP 16; TEMP 36.5; O2SAT 98; BMI 22.3
--- NOTE | 2024-03-08 15:56 | ED_ITS ---
Documented by User: GABY Akhtar 03/11/24 13:36 HPI - Male Genitourinary 2 General: Chief complaint: Urogenital-Male Stated complaint: unable to urinate Time Seen by Provider: 03/08/24 14:26 History of Present Illness: 73-year-old male patient comes in today with difficulty urinating. Patient appears nontoxic. Patient appears no acute distress. Patient reports difficulty urinating since about 930 this morning. Patient reports a history of urinary retention. Patient used to see Dr. Ni urologist. Patient lives at home alone. Patient's POA is his sister. Patient has a history of schizophrenia, metastatic cancer of colon, MDD. Patient reports difficulty dealing with his roommate and neighbors because they tease him about not being able to go to the bathroom. Related Data Home Medications Medication Instructions Recorded Confirmed Bacillus coagulans 400 million 400 cell PO DAILY 04/02/22 02/05/24 cell chewable tablet (Digestive Advantage Probiotics-Prebiotic) coenzyme Q10 75 mg capsule (Ultra 75 mg PO DAILY 04/02/22 02/05/24 CoQ10) magnesium oxide 200 mg PO DAILY 04/02/22 02/05/24 alprazolam 0.25 mg tablet 0.25 mg PO DAILY 10/02/23 02/05/24 cyanocobalamin (vitamin B-12) 5,000 mcg PO DAILY 10/02/23 02/05/24 5,000 mcg capsule tamsulosin 0.4 mg capsule 0.4 mg PO DAILY 10/02/23 02/05/24 lecithin 1,200 mg capsule 1,200 mg PO DAILY 12/23/23 02/05/24 Previous Rx's Medication Instructions Recorded Orthopedic Shoes with Custom #1 ea 08/14/22 Insoles oxycodone 5 mg tablet 5 mg PO Q8H PRN pain #14 tabs 09/30/23 sulfamethoxazole 800 1 tab PO BID 5 days #10 tabs 10/30/23 mg-trimethoprim 160 mg tablet (Bactrim DS) diclofenac sodium 1 % topical gel 4 g topical QID 30 days #100 grams 01/21/24 (Voltaren Arthritis Pain) folic acid 1 mg tablet 1 mg PO DAILY 30 days #30 tabs 01/21/24 paliperidone palmitate 234 mg/1.5 234 mg (1.5 mL) IM Q30D #1.5 mL 02/10/24 mL intramuscular syringe (Invega Sustenna) Allergies Allergy/AdvReac Type Severity Reaction Status Date / Time clozapine Allergy Unknown Unknown Verified 02/05/24 09:28 haloperidol [From Haldol] Allergy Unknown Unknown Verified 02/05/24 09:28 mirtazapine Allergy Unknown Unknown Verified 02/05/24 09:28 nefazodone Allergy Unknown Unknown Verified 02/05/24 09:28 clonazepam AdvReac ADR-Irritab Verified 02/05/24 09:28 le Review of Systems 2 General: Reports: 10 or more systems reviewed and unremarkable except in HPI and below : Reports: difficulty urinating PFSH ED 2 PFSH: Medical History Adenocarcinoma of colon metastatic to liver BPH loc w urin obs/LUTS Right inguinal hernia Schizo-affective schizophrenia Surgical History Port-A-Cath in place 09/30/23 Dr Daley Hx of umbilical hernia repair History of laparoscopic cholecystectomy Family History Mother , at age 70 Cancer Bone Father , at age 72 Colon cancer Grandmother , age unknown Diabetes Social History Smoking and tobacco/nicotine status: current every day tobacco/nicotine user cigarettes Packs smoked per day: 0.25 Years cigarettes smoked: 3.5 Alcohol intake: current Alcohol intake frequency: few times a week Substance/Drug Use: never Lives independently: Yes Marital status: Single service: Yes Current occupational status: retired and disabled Physical Exam 2 Const: COMMON NORMALS: alert HENMT: COMMON NORMALS: normocephalic HEAD & SCALP: normocephalic Neck/C-Spine: COMMON NORMALS: full ROM Resp: COMMON NORMALS: normal respiratory effort and clear to auscultation bilaterally AUSCULTATION: clear to auscultation bilaterally Cardio: COMMON NORMALS: regular rate and regular rhythm RATE: regular rate RHYTHM: regular rhythm GI: COMMON NORMALS: Soft to palpation and non-tender PALPATION: Yes Soft to palpation : COMMON NORMALS: Yes no CVA tenderness BLADDER/KIDNEY EXAM: Yes no CVA tenderness Back/Pelvis: COMMON NORMALS: no CVA tenderness Extremity: COMMON NORMALS: no pedal edema Neuro: SENSORIUM/ORIENTATION: Yes alert Skin: COMMON NORMALS: turgor normal GENERAL SKIN EXAM: turgor normal Course 2 Vital Signs: Vital signs: Vital Signs Temperature 97.7 F 03/08/24 13:25 Pulse Rate 82 03/10/24 20:30 Respiratory Rate 20 H 03/10/24 12:00 Blood Pressure 100/61 03/10/24 20:30 Pulse Oximetry 95 03/10/24 20:30 Oxygen Delivery Me thod Room Air 03/10/24 04:07 MDM - Male Medical Decision Making 73-year-old male patient comes in today for complaints of difficulty urinating. Patient appears nontoxic. Patient appears and mild pain. Patient is resting on his side when I entered the room. Patient moves all extremities well. Abdomen soft with no palpable bladder. Differential diagnosis includes urinary retention, urinary tract infection, malingering, behavioral problems, MDD, Acute psychosis. The patient's bladder had over 500 mL and it on bladder scan and Browning catheter was placed. We were awaiting laboratory results on blood work when patient made the statement that he was feeling depressed no longer wished to go home. Patient is wanting admission to the neuropsychiatric unit for further evaluation of his depression. Patient denies suicidal/homicidal thought. Patient does seem to have some paranoia regarding the neighbors and his roommate teasing him about having a Browning catheter. Patient does not have a roommate. 1899, reviewed patient concern with guardian. She agreed with plan for patient be placed into a stress unit for his depression and paranoia. 0, reviewed patient with Dr. Joaquim Gutierrez, attending ER physician, he graciously agreed to assume care of patient at the end of my shift. Lab Data 03/08/24 17:41 03/08/24 18:46 Radiology Impressions Chest X-Ray 03/08/24 18:22 IMPRESSION: No evidence for acute cardiopulmonary disease. Head CT 03/09/24 17:35 IMPRESSION: No acute intracranial findings. No evidence of metastatic disease. Please note MRI brain with IV contrast is more sensitive for metastatic disease evaluation. Laboratory Results WBC 6.52 10^3/uL (3.29-11.43) 03/08/24 17:41 RBC 4.30 10^6/uL (3.85-5.65) 03/08/24 17:41 Hgb 13.60 g/dL (11.27-16.99) 03/08/24 17:41 Hct 39.5 % (37-53) 03/08/24 17:41 MCV 91.9 fl (82-101) 03/08/24 17:41 MCH 31.6 pg (27-33) 03/08/24 17:41 MCHC 34.4 g/dL (30-55) 03/08/24 17:41 RDW 15.4 % (12.1-15.1) H 03/08/24 17:41 Plt Count 154 10^3/cmm (157-399) L 03/08/24 17:41 MPV 9.3 fL (7.4-10.4) 03/08/24 17:41 Neut % (Auto) 70.2 % 03/08/24 17:41 Lymph % (Auto) 19.5 % 03/08/24 17:41 [place] % (Auto) 8.9 % 03/08/24 17:41 Eos % (Auto) 0.3 % 03/08/24 17:41 Baso % (Auto) 0.5 % 03/08/24 17:41 Neut # (Auto) 4.58 10^3/uL (1.8-7.7) 03/08/24 17:41 Lymph # (Auto) 1.3 10^3/uL (0.8-4.8) 03/08/24 17:41 [place] # (Auto) 0.6 10^3/uL (0.2-0.9) 03/08/24 17:41 Eos # (Auto) 0.0 10^3/uL (0.0-0.8) 03/08/24 17:41 Baso # (Auto) 0.0 10^3/uL (0.0-0.1) 03/08/24 17:41 Nucleated RBC % (auto) 0 % 03/08/24 17:41 Nucleated RBCs # 0.0 /100WBC 03/08/24 17:41 Sodium 132 mmol/L (136-145) L 03/08/24 18:46 Potassium 3.5 mmol/L (3.5-5.1) 03/08/24 18:46 Chloride 94 mmol/L (98-107) L 03/08/24 18:46 Carbon Dioxide 22 mmol/L (22-29) 03/08/24 18:46 Anion Gap 19.5 (5-19) H 03/08/24 18:46 BUN 6 mg/dL (8-23) L 03/08/24 18:46 Creatinine 0.5 mg/dL (0.7-1.2) L 03/08/24 18:46 GFR Calculation Not Reportable 03/08/24 18:46 Glucose 104 mg/dL (65-115) 03/08/24 18:46 Calculated Osmolality 272 mOsm/kg (285-295) L 03/08/24 18:46 Calcium 8.9 mg/dL (8.5-10.5) 03/08/24 18:46 Total Bilirubin 0.5 mg/dL (0.15-1.2) 03/08/24 18:46 AST 25 U/L (0-40) 03/08/24 18:46 ALT 24 U/L (0-41) 03/08/24 18:46 Alkaline Phosphatase 87 U/L (40-130) 03/08/24 18:46 Total Protein 6.9 g/dL (6.6-8.7) 03/08/24 18:46 Albumin 4.1 g/dL (3.5-5.2) 03/08/24 18:46 Globulin 2.8 g/dL (1.3-4.6) 03/08/24 18:46 TSH 1.85 uIU/mL (0.27-4.20) 03/08/24 18:46 Urine Color Yellow (Yellow) 03/08/24 17:10 Urine Appearance Clear (CLEAR) 03/08/24 17:10 Urine pH 8.0 (5-7) A 03/08/24 17:10 Ur Specific [place] 1.009 (1.005-1.030) 03/08/24 17:10 Urine Protein Negative (Negative) 03/08/24 17:10 Urine Glucose (UA) Negative (Normal) 03/08/24 17:10 Urine Ketones Negative (Negative) 03/08/24 17:10 Urine Blood Negative (Negative) 03/08/24 17:10 Urine Nitrate Negative (Negative) 03/08/24 17:10 Urine Bilirubin Negative (Negative) 03/08/24 17:10 Urine Urobilinogen 1.0 mg/dL (Negative) 03/08/24 17:10 Ur Leukocyte Esterase Negative (Negative) 03/08/24 17:10 Urine RBC 0-2 /hpf (0-2) 03/08/24 17:10 Urine WBC 0-5 /hpf (0-5) 03/08/24 17:10 Ur Squamous Epith Cells 0-5 /hpf (0-5) 03/08/24 17:10 Amorphous Sediment Not Reportable 03/08/24 17:10 Urine Bacteria None seen /hpf (NONE) 03/08/24 17:10 Hyaline Casts 0.40 /lpf 03/08/24 17:10 Salicylates < 0.3 mg/dL (3-10) L 03/08/24 18:46 Urine Opiates Screen Negative ng/mL (Negative) 03/08/24 17:10 Acetaminophen < 5.0 ug/mL (10-30) L 03/08/24 18:46 Ur Barbiturates Screen Negative ng/mL (Negative) 03/08/24 17:10 Ur Phencyclidine Scrn Negative ng/mL (Negative) 03/08/24 17:10 Ur Amphetamines Screen Negative ng/mL (Negative) 03/08/24 17:10 U Benzodiazepines Scrn Negative ng/mL (Negative) 03/08/24 17:10 Urine Cocaine Screen Negative ng/mL (Negative) 03/08/24 17:10 U Marijuana (THC) Screen Negative ng/mL (Negative) 03/08/24 17:10 Ethyl Alcohol < 10 mg/dL (0-10) 03/08/24 18:46 SARS-CoV-2 Ag (Rapid) negative (Negative) 03/08/24 18:54 EKG Data EKG 1: I personally reviewed and interpreted this EKG as follows: EKG Data: 03/08/24 EKG interpretation time: 18:35 Prior EKG tracings: not available for review Interpretation: EKG shows a sinus rhythm with a regular rate at [address] elevation or ectopy is noted. No prior exam was available for comparison. Computer interpretation states sinus rhythm. Normal EKG. Unconfirmed report. Discharge Plan Discharge Patient Disposition: Xfer Psychiatric Hosp Clinical Impression: Schizo-affective schizophrenia, Acute retention of urine MDD (major depressive disorder) Qualifiers: Major depression recurrence: unspecified whether recurrent Active/Remission status: currently active Major depression episode severity: severe Psychotic features: with psychotic features Qualified Code(s): F32.3 - Major depressive disorder, single episode, severe with psychotic features Condition: Stable Referrals: Chu Ramsey DO [Primary Care Provider] - Sign Out Sign Out Data: Patient Sign Out occurred on 03/09/24 at 06:40. Patient's care was discussed, and care was transferred from Joaquim Gutierrez DO to Mele Duckworth DO. Coding Level of Care Code ED Cosmetic Sales for Chg Fwd Documented by User: Joaquim Gutierrez DO 03/14/24 18:55 HPI - Male Genitourinary 2 General: Chief complaint: Urogenital-Male Stated complaint: unable to urinate Time Seen by Provider: 03/08/24 14:26 Related Data Home Medications Medication Instructions Recorded Confirmed Bacillus coagulans 400 million 400 cell PO DAILY 04/02/22 02/05/24 cell chewable tablet (Digestive Advantage Probiotics-Prebiotic) coenzyme Q10 75 mg capsule (Ultra 75 mg PO DAILY 04/02/22 02/05/24 CoQ10) magnesium oxide 200 mg PO DAILY 04/02/22 02/05/24 alprazolam 0.25 mg tablet 0.25 mg PO DAILY 10/02/23 02/05/24 cyanocobalamin (vitamin B-12) 5,000 mcg PO DAILY 10/02/23 02/05/24 5,000 mcg capsule tamsulosin 0.4 mg capsule 0.4 mg PO DAILY 10/02/23 02/05/24 lecithin 1,200 mg capsule 1,200 mg PO DAILY 12/23/23 02/05/24 Previous Rx's Medication Instructions Recorded Orthopedic Shoes with Custom #1 ea 08/14/22 Insoles oxycodone 5 mg tablet 5 mg PO Q8H PRN pain #14 tabs 09/30/23 sulfamethoxazole 800 1 tab PO BID 5 days #10 tabs 10/30/23 mg-trimethoprim 160 mg tablet (Bactrim DS) diclofenac sodium 1 % topical gel 4 g topical QID 30 days #100 grams 01/21/24 (Voltaren Arthritis Pain) folic acid 1 mg tablet 1 mg PO DAILY 30 days #30 tabs 01/21/24 paliperidone palmitate 234 mg/1.5 234 mg (1.5 mL) IM Q30D #1.5 mL 02/10/24 mL intramuscular syringe (Invega Sustenna) Allergies Allergy/AdvReac Type Severity Reaction Status Date / Time clozapine Allergy Unknown Unknown Verified 02/05/24 09:28 haloperidol [From Haldol] Allergy Unknown Unknown Verified 02/05/24 09:28 mirtazapine Allergy Unknown Unknown Verified 02/05/24 09:28 nefazodone Allergy Unknown Unknown Verified 02/05/24 09:28 clonazepam AdvReac ADR-Irritab Verified 02/05/24 09:28 le PFSH ED 2 PFSH: Medical History Adenocarcinoma of colon metastatic to liver BPH loc w urin obs/LUTS Right inguinal hernia Schizo-affective schizophrenia Surgical History Port-A-Cath in place 09/30/23 Dr Daley Hx of umbilical hernia repair History of laparoscopic cholecystectomy Family History Mother , at age 70 Cancer Bone Father , at age 72 Colon cancer Grandmother , age unknown Diabetes Social History Smoking and tobacco/nicotine status: current every day tobacco/nicotine user cigarettes Packs smoked per day: 0.25 Years cigarettes smoked: 3.5 Alcohol intake: current Alcohol intake frequency: few times a week Substance/Drug Use: never Lives independently: Yes Marital status: Single service: Yes Current occupational status: retired and disabled Course 2 Vital Signs: Vital signs: Vital Signs Temperature 97.7 F 03/08/24 13:25 Pulse Rate 82 03/10/24 20:30 Respiratory Rate 20 H 03/10/24 12:00 Blood Pressure 100/61 03/10/24 20:30 Pulse Oximetry 95 03/10/24 20:30 Oxygen Delivery Me thod Room Air 03/10/24 04:07 MDM - Male Medical Decision Making 73-year-old male patient comes in today for complaints of difficulty urinating. Patient appears nontoxic. Patient appears and mild pain. Patient is resting on his side when I entered the room. Patient moves all extremities well. Abdomen soft with no palpable bladder. Differential diagnosis includes urinary retention, urinary tract infection, malingering, behavioral problems, MDD, Acute psychosis. The patient's bladder had over 500 mL and it on bladder scan and Browning catheter was placed. We were awaiting laboratory results on blood work when patient made the statement that he was feeling depressed no longer wished to go home. Patient is wanting admission to the neuropsychiatric unit for further evaluation of his depression. Patient denies suicidal/homicidal thought. Patient does seem to have some paranoia regarding the neighbors and his roommate teasing him about having a Browning catheter. Patient does not have a roommate. 1899, reviewed patient concern with guardian. She agreed with plan for patient be placed into a stress unit for his depression and paranoia. 29, reviewed patient with Dr. Joaquim Gutierrez, attending ER physician, he graciously agreed to assume care of patient at the end of my shift. This patient was originally seen by GABY Thompson.? I agree with his history, evaluation, and treatment. [facility] in [place] is graciously agreed to accept the patient if they can speak with the patient's guardian, which has not yet been possible. He will be checked out at shift change. Lab Data 03/08/24 17:41 03/08/24 18:46 Radiology Impressions Chest X-Ray 03/08/24 18:22 IMPRESSION: No evidence for acute cardiopulmonary disease. Head CT 03/09/24 17:35 IMPRESSION: No acute intracranial findings. No evidence of metastatic disease. Please note MRI brain with IV contrast is more sensitive for metastatic disease evaluation. Laboratory Results WBC 6.52 10^3/uL (3.29-11.43) 03/08/24 17:41 RBC 4.30 10^6/uL (3.85-5.65) 03/08/24 17:41 Hgb 13.60 g/dL (11.27-16.99) 03/08/24 17:41 Hct 39.5 % (37-53) 03/08/24 17:41 MCV 91.9 fl (82-101) 03/08/24 17:41 MCH 31.6 pg (27-33) 03/08/24 17:41 MCHC 34.4 g/dL (30-55) 03/08/24 17:41 RDW 15.4 % (12.1-15.1) H 03/08/24 17:41 Plt Count 154 10^3/cmm (157-399) L 03/08/24 17:41 MPV 9.3 fL (7.4-10.4) 03/08/24 17:41 Neut % (Auto) 70.2 % 03/08/24 17:41 Lymph % (Auto) 19.5 % 03/08/24 17:41 [place] % (Auto) 8.9 % 03/08/24 17:41 Eos % (Auto) 0.3 % 03/08/24 17:41 Baso % (Auto) 0.5 % 03/08/24 17:41 Neut # (Auto) 4.58 10^3/uL (1.8-7.7) 03/08/24 17:41 Lymph # (Auto) 1.3 10^3/uL (0.8-4.8) 03/08/24 17:41 [place] # (Auto) 0.6 10^3/uL (0.2-0.9) 03/08/24 17:41 Eos # (Auto) 0.0 10^3/uL (0.0-0.8) 03/08/24 17:41 Baso # (Auto) 0.0 10^3/uL (0.0-0.1) 03/08/24 17:41 Nucleated RBC % (auto) 0 % 03/08/24 17:41 Nucleated RBCs # 0.0 /100WBC 03/08/24 17:41 Sodium 132 mmol/L (136-145) L 03/08/24 18:46 Potassium 3.5 mmol/L (3.5-5.1) 03/08/24 18:46 Chloride 94 mmol/L (98-107) L 03/08/24 18:46 Carbon Dioxide 22 mmol/L (22-29) 03/08/24 18:46 Anion Gap 19.5 (5-19) H 03/08/24 18:46 BUN 6 mg/dL (8-23) L 03/08/24 18:46 Creatinine 0.5 mg/dL (0.7-1.2) L 03/08/24 18:46 GFR Calculation Not Reportable 03/08/24 18:46 Glucose 104 mg/dL (65-115) 03/08/24 18:46 Calculated Osmolality 272 mOsm/kg (285-295) L 03/08/24 18:46 Calcium 8.9 mg/dL (8.5-10.5) 03/08/24 18:46 Total Bilirubin 0.5 mg/dL (0.15-1.2) 03/08/24 18:46 AST 25 U/L (0-40) 03/08/24 18:46 ALT 24 U/L (0-41) 03/08/24 18:46 Alkaline Phosphatase 87 U/L (40-130) 03/08/24 18:46 Total Protein 6.9 g/dL (6.6-8.7) 03/08/24 18:46 Albumin 4.1 g/dL (3.5-5.2) 03/08/24 18:46 Globulin 2.8 g/dL (1.3-4.6) 03/08/24 18:46 TSH 1.85 uIU/mL (0.27-4.20) 03/08/24 18:46 Urine Color Yellow (Yellow) 03/08/24 17:10 Urine Appearance Clear (CLEAR) 03/08/24 17:10 Urine pH 8.0 (5-7) A 03/08/24 17:10 Ur Specific [place] 1.009 (1.005-1.030) 03/08/24 17:10 Urine Protein Negative (Negative) 03/08/24 17:10 Urine Glucose (UA) Negative (Normal) 03/08/24 17:10 Urine Ketones Negative (Negative) 03/08/24 17:10 Urine Blood Negative (Negative) 03/08/24 17:10 Urine Nitrate Negative (Negative) 03/08/24 17:10 Urine Bilirubin Negative (Negative) 03/08/24 17:10 Urine Urobilinogen 1.0 mg/dL (Negative) 03/08/24 17:10 Ur Leukocyte Esterase Negative (Negative) 03/08/24 17:10 Urine RBC 0-2 /hpf (0-2) 03/08/24 17:10 Urine WBC 0-5 /hpf (0-5) 03/08/24 17:10 Ur Squamous Epith Cells 0-5 /hpf (0-5) 03/08/24 17:10 Amorphous Sediment Not Reportable 03/08/24 17:10 Urine Bacteria None seen /hpf (NONE) 03/08/24 17:10 Hyaline Casts 0.40 /lpf 03/08/24 17:10 Salicylates < 0.3 mg/dL (3-10) L 03/08/24 18:46 Urine Opiates Screen Negative ng/mL (Negative) 03/08/24 17:10 Acetaminophen < 5.0 ug/mL (10-30) L 03/08/24 18:46 Ur Barbiturates Screen Negative ng/mL (Negative) 03/08/24 17:10 Ur Phencyclidine Scrn Negative ng/mL (Negative) 03/08/24 17:10 Ur Amphetamines Screen Negative ng/mL (Negative) 03/08/24 17:10 U Benzodiazepines Scrn Negative ng/mL (Negative) 03/08/24 17:10 Urine Cocaine Screen Negative ng/mL (Negative) 03/08/24 17:10 U Marijuana (THC) Screen Negative ng/mL (Negative) 03/08/24 17:10 Ethyl Alcohol < 10 mg/dL (0-10) 03/08/24 18:46 SARS-CoV-2 Ag (Rapid) negative (Negative) 03/08/24 18:54 Discharge Plan Discharge Patient Disposition: Xfer Psychiatric Hosp Clinical Impression: Schizo-affective schizophrenia, Acute retention of urine MDD (major depressive disorder) Qualifiers: Major depression recurrence: unspecified whether recurrent Active/Remission status: currently active Major depression episode severity: severe Psychotic features: with psychotic features Qualified Code(s): F32.3 - Major depressive disorder, single episode, severe with psychotic features Condition: Stable Referrals: Chu Ramsey DO [Primary Care Provider] - Sign Out Sign Out Data: Patient Sign Out occurred on 03/09/24 at 06:40. Patient's care was discussed, and care was transferred from Joaquim Gutierrez DO to Mele Duckworth DO. Coding Level of Care Code ED Cosmetic Sales for Chg Fwd Documented by User: Mele Duckworth DO 03/11/24 06:05 HPI - Male Genitourinary 2 General: Chief complaint: Urogenital-Male Stated complaint: unable to urinate Time Seen by Provider: 03/08/24 14:26 Related Data Home Medications Medication Instructions Recorded Confirmed Bacillus coagulans 400 million 400 cell PO DAILY 04/02/22 02/05/24 cell chewable tablet (Digestive Advantage Probiotics-Prebiotic) coenzyme Q10 75 mg capsule (Ultra 75 mg PO DAILY 04/02/22 02/05/24 CoQ10) magnesium oxide 200 mg PO DAILY 04/02/22 02/05/24 alprazolam 0.25 mg tablet 0.25 mg PO DAILY 10/02/23 02/05/24 cyanocobalamin (vitamin B-12) 5,000 mcg PO DAILY 10/02/23 02/05/24 5,000 mcg capsule tamsulosin 0.4 mg capsule 0.4 mg PO DAILY 10/02/23 02/05/24 lecithin 1,200 mg capsule 1,200 mg PO DAILY 12/23/23 02/05/24 Previous Rx's Medication Instructions Recorded Orthopedic Shoes with Custom #1 ea 08/14/22 Insoles oxycodone 5 mg tablet 5 mg PO Q8H PRN pain #14 tabs 09/30/23 sulfamethoxazole 800 1 tab PO BID 5 days #10 tabs 10/30/23 mg-trimethoprim 160 mg tablet (Bactrim DS) diclofenac sodium 1 % topical gel 4 g topical QID 30 days #100 grams 01/21/24 (Voltaren Arthritis Pain) folic acid 1 mg tablet 1 mg PO DAILY 30 days #30 tabs 01/21/24 paliperidone palmitate 234 mg/1.5 234 mg (1.5 mL) IM Q30D #1.5 mL 02/10/24 mL intramuscular syringe (Invega Sustenna) Allergies Allergy/AdvReac Type Severity Reaction Status Date / Time clozapine Allergy Unknown Unknown Verified 02/05/24 09:28 haloperidol [From Haldol] Allergy Unknown Unknown Verified 02/05/24 09:28 mirtazapine Allergy Unknown Unknown Verified 02/05/24 09:28 nefazodone Allergy Unknown Unknown Verified 02/05/24 09:28 clonazepam AdvReac ADR-Irritab Verified 02/05/24 09:28 PFSH ED 2 PFSH: Medical History Adenocarcinoma of colon metastatic to liver BPH loc w urin obs/LUTS Right inguinal hernia Schizo-affective schizophrenia Surgical History Port-A-Cath in place 09/30/23 Dr Daley Hx of umbilical hernia repair History of laparoscopic cholecystectomy Family History Mother , at age 70 Cancer Bone Father , at age 72 Colon cancer Grandmother , age unknown Diabetes Social History Smoking and tobacco/nicotine status: current every day tobacco/nicotine user cigarettes Packs smoked per day: 0.25 Years cigarettes smoked: 3.5 Alcohol intake: current Alcohol intake frequency: few times a week Substance/Drug Use: never Lives independently: Yes Marital status: Single service: Yes Current occupational status: retired and disabled Course 2 Vital Signs: Vital signs: Vital Signs Temperature 97.7 F 03/08/24 13:25 Pulse Rate 82 03/10/24 20:30 Respiratory Rate 20 H 03/10/24 12:00 Blood Pressure 100/61 03/10/24 20:30 Pulse Oximetry 95 03/10/24 20:30 Oxygen Delivery Me thod Room Air 03/10/24 04:07 MDM - Male Medical Decision Making 73-year-old male patient comes in today for complaints of difficulty urinating. Patient appears nontoxic. Patient appears and mild pain. Patient is resting on his side when I entered the room. Patient moves all extremities well. Abdomen soft with no palpable bladder. Differential diagnosis includes urinary retention, urinary tract infection, malingering, behavioral problems, MDD, Acute psychosis. The patient's bladder had over 500 mL and it on bladder scan and Browning catheter was placed. We were awaiting laboratory results on blood work when patient made the statement that he was feeling depressed no longer wished to go home. Patient is wanting admission to the neuropsychiatric unit for further evaluation of his depression. Patient denies suicidal/homicidal thought. Patient does seem to have some paranoia regarding the neighbors and his roommate teasing him about having a Browning catheter. Patient does not have a roommate. 1899, reviewed patient concern with guardian. She agreed with plan for patient be placed into a stress unit for his depression and paranoia. 29, reviewed patient with Dr. Joaquim Gutierrez, attending ER physician, he graciously agreed to assume care of patient at the end of my shift. This patient was originally seen by GABY Thompson.? I agree with his history, evaluation, and treatment. [facility] in [place] is graciously agreed to accept the patient if they can speak with the patient's guardian, which has not yet been possible. He will be checked out at shift change. 03/09/2024 Care assumed at change of shift. We had him placed at [facility] at [facility] however we could not get transportation arranged in the interim [facility] admitted another patient and no longer has a bed available. We have been trying to make other arrangements so far we have not been successful. They are evaluating him at [facility] because [facility] however they are telling us now that they will not be able to give us a final decision until tomorrow. I have asked Dr. Ricci to see and evaluate patient. 03/09/2025 5:[address] Hilario has seen and evaluated the patient he recommends patient should be placed inpatient for further evaluation for his psychosis. Will continue to work on placement. At this point we have supplied all the information of the [place] with a TeleSitter we will not have a decision until tomorrow. Unfortunately other facilities will not consider to the [facility] has declined. Lab Data 03/08/24 17:41 03/08/24 18:46 Radiology Impressions Chest X-Ray 03/08/24 18:22 IMPRESSION: No evidence for acute cardiopulmonary disease. Head CT 03/09/24 17:35 IMPRESSION: No acute intracranial findings. No evidence of metastatic disease. Please note MRI brain with IV contrast is more sensitive for metastatic disease evaluation. Laboratory Results WBC 6.52 10^3/uL (3.29-11.43) 03/08/24 17:41 RBC 4.30 10^6/uL (3.85-5.65) 03/08/24 17:41 Hgb 13.60 g/dL (11.27-16.99) 03/08/24 17:41 Hct 39.5 % (37-53) 03/08/24 17:41 MCV 91.9 fl (82-101) 03/08/24 17:41 MCH 31.6 pg (27-33) 03/08/24 17:41 MCHC 34.4 g/dL (30-55) 03/08/24 17:41 RDW 15.4 % (12.1-15.1) H 03/08/24 17:41 Plt Count 154 10^3/cmm (157-399) L 03/08/24 17:41 MPV 9.3 fL (7.4-10.4) 03/08/24 17:41 Neut % (Auto) 70.2 % 03/08/24 17:41 Lymph % (Auto) 19.5 % 03/08/24 17:41 [place] % (Auto) 8.9 % 03/08/24 17:41 Eos % (Auto) 0.3 % 03/08/24 17:41 Baso % (Auto) 0.5 % 03/08/24 17:41 Neut # (Auto) 4.58 10^3/uL (1.8-7.7) 03/08/24 17:41 Lymph # (Auto) 1.3 10^3/uL (0.8-4.8) 03/08/24 17:41 [place] # (Auto) 0.6 10^3/uL (0.2-0.9) 03/08/24 17:41 Eos # (Auto) 0.0 10^3/uL (0.0-0.8) 03/08/24 17:41 Baso # (Auto) 0.0 10^3/uL (0.0-0.1) 03/08/24 17:41 Nucleated RBC % (auto) 0 % 03/08/24 17:41 Nucleated RBCs # 0.0 /100WBC 03/08/24 17:41 Sodium 132 mmol/L (136-145) L 03/08/24 18:46 Potassium 3.5 mmol/L (3.5-5.1) 03/08/24 18:46 Chloride 94 mmol/L (98-107) L 03/08/24 18:46 Carbon Dioxide 22 mmol/L (22-29) 03/08/24 18:46 Anion Gap 19.5 (5-19) H 03/08/24 18:46 BUN 6 mg/dL (8-23) L 03/08/24 18:46 Creatinine 0.5 mg/dL (0.7-1.2) L 03/08/24 18:46 GFR Calculation Not Reportable 03/08/24 18:46 Glucose 104 mg/dL (65-115) 03/08/24 18:46 Calculated Osmolality 272 mOsm/kg (285-295) L 03/08/24 18:46 Calcium 8.9 mg/dL (8.5-10.5) 03/08/24 18:46 Total Bilirubin 0.5 mg/dL (0.15-1.2) 03/08/24 18:46 AST 25 U/L (0-40) 03/08/24 18:46 ALT 24 U/L (0-41) 03/08/24 18:46 Alkaline Phosphatase 87 U/L (40-130) 03/08/24 18:46 Total Protein 6.9 g/dL (6.6-8.7) 03/08/24 18:46 Albumin 4.1 g/dL (3.5-5.2) 03/08/24 18:46 Globulin 2.8 g/dL (1.3-4.6) 03/08/24 18:46 TSH 1.85 uIU/mL (0.27-4.20) 03/08/24 18:46 Urine Color Yellow (Yellow) 03/08/24 17:10 Urine Appearance Clear (CLEAR) 03/08/24 17:10 Urine pH 8.0 (5-7) A 03/08/24 17:10 Ur Specific [place] 1.009 (1.005-1.030) 03/08/24 17:10 Urine Protein Negative (Negative) 03/08/24 17:10 Urine Glucose (UA) Negative (Normal) 03/08/24 17:10 Urine Ketones Negative (Negative) 03/08/24 17:10 Urine Blood Negative (Negative) 03/08/24 17:10 Urine Nitrate Negative (Negative) 03/08/24 17:10 Urine Bilirubin Negative (Negative) 03/08/24 17:10 Urine Urobilinogen 1.0 mg/dL (Negative) 03/08/24 17:10 Ur Leukocyte Esterase Negative (Negative) 03/08/24 17:10 Urine RBC 0-2 /hpf (0-2) 03/08/24 17:10 Urine WBC 0-5 /hpf (0-5) 03/08/24 17:10 Ur Squamous Epith Cells 0-5 /hpf (0-5) 03/08/24 17:10 Amorphous Sediment Not Reportable 03/08/24 17:10 Urine Bacteria None seen /hpf (NONE) 03/08/24 17:10 Hyaline Casts 0.40 /lpf 03/08/24 17:10 Salicylates < 0.3 mg/dL (3-10) L 03/08/24 18:46 Urine Opiates Screen Negative ng/mL (Negative) 03/08/24 17:10 Acetaminophen < 5.0 ug/mL (10-30) L 03/08/24 18:46 Ur Barbiturates Screen Negative ng/mL (Negative) 03/08/24 17:10 Ur Phencyclidine Scrn Negative ng/mL (Negative) 03/08/24 17:10 Ur Amphetamines Screen Negative ng/mL (Negative) 03/08/24 17:10 U Benzodiazepines Scrn Negative ng/mL (Negative) 03/08/24 17:10 Urine Cocaine Screen Negative ng/mL (Negative) 03/08/24 17:10 U Marijuana (THC) Screen Negative ng/mL (Negative) 03/08/24 17:10 Ethyl Alcohol < 10 mg/dL (0-10) 03/08/24 18:46 SARS-CoV-2 Ag (Rapid) negative (Negative) 03/08/24 18:54 Discharge Plan Discharge Patient Disposition: Xfer Psychiatric Hosp Clinical Impression: Schizo-affective schizophrenia, Acute retention of urine MDD (major depressive disorder) Qualifiers: Major depression recurrence: unspecified whether recurrent Active/Remission status: currently active Major depression episode severity: severe Psychotic features: with psychotic features Qualified Code(s): F32.3 - Major depressive disorder, single episode, severe with psychotic features Condition: Stable Referrals: Chu Ramsey DO [Primary Care Provider] - Sign Out Sign Out Data: Patient Sign Out occurred on 03/09/24 at 06:40. Patient's care was discussed, and care was transferred from Joaquim Gutierrez DO to Mele Duckworth DO. Coding Level of Care Code ED Cosmetic Sales for Chg Fwd Documented by User: Toi Myrick DO 03/10/24 21:04 HPI - Male Genitourinary 2 General: Chief complaint: Urogenital-Male Stated complaint: unable to urinate Time Seen by Provider: 03/08/24 14:26 Related Data Home Medications Medication Instructions Recorded Confirmed Bacillus coagulans 400 million 400 cell PO DAILY 04/02/22 02/05/24 cell chewable tablet (Digestive Advantage Probiotics-Prebiotic) coenzyme Q10 75 mg capsule (Ultra 75 mg PO DAILY 04/02/22 02/05/24 CoQ10) magnesium oxide 200 mg PO DAILY 04/02/22 02/05/24 alprazolam 0.25 mg tablet 0.25 mg PO DAILY 10/02/23 02/05/24 cyanocobalamin (vitamin B-12) 5,000 mcg PO DAILY 10/02/23 02/05/24 5,000 mcg capsule tamsulosin 0.4 mg capsule 0.4 mg PO DAILY 10/02/23 02/05/24 lecithin 1,200 mg capsule 1,200 mg PO DAILY 12/23/23 02/05/24 Previous Rx's Medication Instructions Recorded Orthopedic Shoes with Custom #1 ea 08/14/22 Insoles oxycodone 5 mg tablet 5 mg PO Q8H PRN pain #14 tabs 09/30/23 sulfamethoxazole 800 1 tab PO BID 5 days #10 tabs 10/30/23 mg-trimethoprim 160 mg tablet (Bactrim DS) diclofenac sodium 1 % topical gel 4 g topical QID 30 days #100 grams 01/21/24 (Voltaren Arthritis Pain) folic acid 1 mg tablet 1 mg PO DAILY 30 days #30 tabs 01/21/24 paliperidone palmitate 234 mg/1.5 234 mg (1.5 mL) IM Q30D #1.5 mL 02/10/24 mL intramuscular syringe (Invega Sustenna) Allergies Allergy/AdvReac Type Severity Reaction Status Date / Time clozapine Allergy Unknown Unknown Verified 02/05/24 09:28 haloperidol [From Haldol] Allergy Unknown Unknown Verified 02/05/24 09:28 mirtazapine Allergy Unknown Unknown Verified 02/05/24 09:28 nefazodone Allergy Unknown Unknown Verified 02/05/24 09:28 clonazepam AdvReac ADR-Irritab Verified 02/05/24 09:28 [facility] ED 2 PFSH: Medical History Adenocarcinoma of colon metastatic to liver BPH loc w urin obs/LUTS Right inguinal hernia Schizo-affective schizophrenia Surgical History Port-A-Cath in place 09/30/23 Dr Daley Hx of umbilical hernia repair History of laparoscopic cholecystectomy Family History Mother , at age 70 Cancer Bone Father , at age 72 Colon cancer Grandmother , age unknown Diabetes Social History Smoking and tobacco/nicotine status: current every day tobacco/nicotine user cigarettes Packs smoked per day: 0.25 Years cigarettes smoked: 3.5 Alcohol intake: current Alcohol intake frequency: few times a week Substance/Drug Use: never Lives independently: Yes Marital status: Single service: Yes Current occupational status: retired and disabled Course 2 Vital Signs: Vital signs: Vital Signs Temperature 97.7 F 03/08/24 13:25 Pulse Rate 82 03/10/24 20:30 Respiratory Rate 20 H 03/10/24 12:00 Blood Pressure 100/61 03/10/24 20:30 Pulse Oximetry 95 03/10/24 20:30 Oxygen Delivery Me thod Room Air 03/10/24 04:07 MDM - Male Medical Decision Making 73-year-old male patient comes in today for complaints of difficulty urinating. Patient appears nontoxic. Patient appears and mild pain. Patient is resting on his side when I entered the room. Patient moves all extremities well. Abdomen soft with no palpable bladder. Differential diagnosis includes urinary retention, urinary tract infection, malingering, behavioral problems, MDD, Acute psychosis. The patient's bladder had over 500 mL and it on bladder scan and Browning catheter was placed. We were awaiting laboratory results on blood work when patient made the statement that he was feeling depressed no longer wished to go home. Patient is wanting admission to the neuropsychiatric unit for further evaluation of his depression. Patient denies suicidal/homicidal thought. Patient does seem to have some paranoia regarding the neighbors and his roommate teasing him about having a Borw[place] catheter. Patient does not have a roommate. 1899, reviewed patient concern with guardian. She agreed with plan for patient be placed into a stress unit for his depression and paranoia. 29, reviewed patient with Dr. Joaquim Gutierrez, attending ER physician, he graciously agreed to assume care of patient at the end of my shift. This patient was originally seen by GABY Thompson.? I agree with his history, evaluation, and treatment. [facility] in [place] is graciously agreed to accept the patient if they can speak with the patient's guardian, which has not yet been possible. He will be checked out at shift change. 03/09/2024 Care assumed at change of shift. We had him placed at [facility] at [facility] however we could not get transportation arranged in the interim [facility] admitted another patient and no longer has a bed available. We have been trying to make other arrangements so far we have not been successful. They are evaluating him at [facility] because [facility] however they are telling us now that they will not be able to give us a final decision until tomorrow. I have asked Dr. Ricci to see and evaluate patient. 03/09/2025 5:[address] Hilario has seen and evaluated the patient he recommends patient should be placed inpatient for further evaluation for his psychosis. Will continue to work on placement. At this point we have supplied all the [facility] of the [facility] with [facility]Sitter we will not have a decision until tomorrow. Unfortunately other facilities will not consider to the [facility] declined. 03/10/2024, patient accepted at [facility] Lab Data 03/08/24 17:41 03/08/24 18:46 Radiology Impressions Chest X-Ray 03/08/24 18:22 IMPRESSION: No evidence for acute cardiopulmonary disease. Head CT 03/09/24 17:35 IMPRESSION: No acute intracranial findings. No evidence of metastatic disease. Please note MRI brain with IV contrast is more sensitive for metastatic disease evaluation. Laboratory Results WBC 6.52 10^3/uL (3.29-11.43) 03/08/24 17:41 RBC 4.30 10^6/uL (3.85-5.65) 03/08/24 17:41 Hgb 13.60 g/dL (11.27-16.99) 03/08/24 17:41 Hct 39.5 % (37-53) 03/08/24 17:41 MCV 91.9 fl (82-101) 03/08/24 17:41 MCH 31.6 pg (27-33) 03/08/24 17:41 MCHC 34.4 g/dL (30-55) 03/08/24 17:41 RDW 15.4 % (12.1-15.1) H 03/08/24 17:41 Plt Count 154 10^3/cmm (157-399) L 03/08/24 17:41 MPV 9.3 fL (7.4-10.4) 03/08/24 17:41 Neut % (Auto) 70.2 % 03/08/24 17:41 Lymph % (Auto) 19.5 % 03/08/24 17:41 [place] % (Auto) 8.9 % 03/08/24 17:41 Eos % (Auto) 0.3 % 03/08/24 17:41 Baso % (Auto) 0.5 % 03/08/24 17:41 Neut # (Auto) 4.58 10^3/uL (1.8-7.7) 03/08/24 17:41 Lymph # (Auto) 1.3 10^3/uL (0.8-4.8) 03/08/24 17:41 [place] # (Auto) 0.6 10^3/uL (0.2-0.9) 03/08/24 17:41 Eos # (Auto) 0.0 10^3/uL (0.0-0.8) 03/08/24 17:41 Baso # (Auto) 0.0 10^3/uL (0.0-0.1) 03/08/24 17:41 Nucleated RBC % (auto) 0 % 03/08/24 17:41 Nucleated RBCs # 0.0 /100WBC 03/08/24 17:41 Sodium 132 mmol/L (136-145) L 03/08/24 18:46 Potassium 3.5 mmol/L (3.5-5.1) 03/08/24 18:46 Chloride 94 mmol/L (98-107) L 03/08/24 18:46 Carbon Dioxide 22 mmol/L (22-29) 03/08/24 18:46 Anion Gap 19.5 (5-19) H 03/08/24 18:46 BUN 6 mg/dL (8-23) L 03/08/24 18:46 Creatinine 0.5 mg/dL (0.7-1.2) L 03/08/24 18:46 GFR Calculation Not Reportable 03/08/24 18:46 Glucose 104 mg/dL (65-115) 03/08/24 18:46 Calculated Osmolality 272 mOsm/kg (285-295) L 03/08/24 18:46 Calcium 8.9 mg/dL (8.5-10.5) 03/08/24 18:46 Total Bilirubin 0.5 mg/dL (0.15-1.2) 03/08/24 18:46 AST 25 U/L (0-40) 03/08/24 18:46 ALT 24 U/L (0-41) 03/08/24 18:46 Alkaline Phosphatase 87 U/L (40-130) 03/08/24 18:46 Total Protein 6.9 g/dL (6.6-8.7) 03/08/24 18:46 Albumin 4.1 g/dL (3.5-5.2) 03/08/24 18:46 Globulin 2.8 g/dL (1.3-4.6) 03/08/24 18:46 TSH 1.85 uIU/mL (0.27-4.20) 03/08/24 18:46 Urine Color Yellow (Yellow) 03/08/24 17:10 Urine Appearance Clear (CLEAR) 03/08/24 17:10 Urine pH 8.0 (5-7) A 03/08/24 17:10 Ur Specific [place] 1.009 (1.005-1.030) 03/08/24 17:10 Urine Protein Negative (Negative) 03/08/24 17:10 Urine Glucose (UA) Negative (Normal) 03/08/24 17:10 Urine Ketones Negative (Negative) 03/08/24 17:10 Urine Blood Negative (Negative) 03/08/24 17:10 Urine Nitrate Negative (Negative) 03/08/24 17:10 Urine Bilirubin Negative (Negative) 03/08/24 17:10 Urine Urobilinogen 1.0 mg/dL (Negative) 03/08/24 17:10 Ur Leukocyte Esterase Negative (Negative) 03/08/24 17:10 Urine RBC 0-2 /hpf (0-2) 03/08/24 17:10 Urine WBC 0-5 /hpf (0-5) 03/08/24 17:10 Ur Squamous Epith Cells 0-5 /hpf (0-5) 03/08/24 17:10 Amorphous Sediment Not Reportable 03/08/24 17:10 Urine Bacteria None seen /hpf (NONE) 03/08/24 17:10 Hyaline Casts 0.40 /lpf 03/08/24 17:10 Salicylates < 0.3 mg/dL (3-10) L 03/08/24 18:46 Urine Opiates Screen Negative ng/mL (Negative) 03/08/24 17:10 Acetaminophen < 5.0 ug/mL (10-30) L 03/08/24 18:46 Ur Barbiturates Screen Negative ng/mL (Negative) 03/08/24 17:10 Ur Phencyclidine Scrn Negative ng/mL (Negative) 03/08/24 17:10 Ur Amphetamines Screen Negative ng/mL (Negative) 03/08/24 17:10 U Benzodiazepines Scrn Negative ng/mL (Negative) 03/08/24 17:10 Urine Cocaine Screen Negative ng/mL (Negative) 03/08/24 17:10 U Marijuana (THC) Screen Negative ng/mL (Negative) 03/08/24 17:10 Ethyl Alcohol < 10 mg/dL (0-10) 03/08/24 18:46 SARS-CoV-2 Ag (Rapid) negative (Negative) 03/08/24 18:54 All radiology interpretation(s) finalized by discharge Discharge Plan Discharge Patient Disposition: Xfer Psychiatric Hosp Clinical Impression: Schizo-affective schizophrenia, Acute retention of urine MDD (major depressive disorder) Qualifiers: Major depression recurrence: unspecified whether recurrent Active/Remission status: currently active Major depression episode severity: severe Psychotic features: with psychotic features Qualified Code(s): F32.3 - Major depressive disorder, single episode, severe with psychotic features Condition: Stable Referrals: Chu Ramsey DO [Primary Care Provider] - Sign Out Sign Out Data: Patient Sign Out occurred on 03/09/24 at 06:40. Patient's care was discussed, and care was transferred from Joaquim Gutierrez DO to Mele Duckworth DO. Coding Level of Care Code ED Cosmetic Sales for Alex Webb
[2024-03-08 16:16] VITALS: BP 145/80; PULSE 68; RESP 22; O2SAT 100
[2024-03-08 17:14] LABS: Charge for UA Resulting for Rev
[2024-03-08 17:17] LABS: Bilirubin Urine Negative (Negative); Blood Urine Negative (Negative); Glucose Urine UA Negative (Normal); Ketones Urine Negative (Negative); Leukocyte Esterase Urine Negative (Negative); Nitrate Urine Negative (Negative); Protein Urine Negative (Negative); Specific Gravity, Urine 1.009 (1.005-1.030); Urine Appearance Clear (CLEAR); Urine Color Yellow (Yellow)
[2024-03-08 17:19] LABS: Bacteria Urine None Seen /hpf; RBC Urine 0-2 /hpf (0-2); Squamous Epithelial Cell Urine 0-5 /hpf (0-5); WBC Urine 0-5 /hpf (0-5)
[2024-03-08 17:54] LABS: Basophils % 0.5 %; Eosinophils % 0.3 %; Hematocrit 39.5 % (37-53); Lymphocytes # 1.3 10^3/uL (0.8-4.8); Lymphocytes % 19.5 %; Mean Corpuscular HGB Conc 34.4 g/dL (30-55); Mean Corpuscular Hemoglobin 31.6 pg (27-33); Mean Corpuscular Volume 91.9 fl (82-101); Mean Platelet Volume 9.3 fL (7.4-10.4); Monocytes # 0.6 10^3/uL (0.2-0.9); Monocytes % 8.9 %; Neutrophils # 4.58 10^3/uL (1.8-7.7); Neutrophils % 70.2 %; Nucleated Red Blood Cells % 0 %; Platelet Count 154 10^3/cmm (157-399); Red Cell Distribution Width 15.4 % (12.1-15.1); White Blood Count 6.52 10^3/uL (3.29-11.43)
[2024-03-08 18:12] LABS: Anion Gap 18.8 (5-19); Blood Urea Nitrogen 7 mg/dL (8-23); Calcium 9.4 mg/dL (8.5-10.5); Carbon Dioxide 24 mmol/L (22-29); Chloride 96 mmol/L (98-107); Creatinine Clr Calc Pharmacy 86.3207; Glucose 106 mg/dL (65-115); Osmolality Calculated 278 mOsm/kg (285-295); Potassium 3.8 mmol/L (3.5-5.1); Sodium 135 mmol/L (136-145)
[2024-03-08 18:17] VITALS: BP 169/84; PULSE 64; O2SAT 100
--- NOTE | 2024-03-08 18:22 | XRR_ITS ---
PROCEDURE INFORMATION: Exam: XR Chest Exam date and time: 03/08/2024 6:32 PM Age: 73 years old Clinical indication: Screening exam; Surgery type: Port-a-cath; Med clearance TECHNIQUE: Imaging protocol: Radiologic exam of the chest. Views: 1 view. COMPARISON: CT chest w con* [id number] 06/06/2023 3:38 PM FINDINGS: Tubes, catheters and devices: Central venous catheter tip projects over the cavoatrial junction. Lungs: Unremarkable. No consolidation. Pleural spaces: Unremarkable. No pleural effusion. No pneumothorax. Heart/Mediastinum: Unremarkable. No cardiomegaly. Bones/joints: Old/healed right rib fracture sites. XR/XR chest 1V portable [id number] IMPRESSION: No evidence for acute cardiopulmonary disease.
--- NOTE | 2024-03-08 18:32 | ECG_ITS ---
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 Measurements Intervals [place] Rate: 65 P: 57 [place]: 144 QRS: -3 QRSD: 105 T: 48 QT: 417 QTc: 435 Interpretive Statements SINUS RHYTHM Compared to ECG 08/12/2023 18:09:40 No significant changes Electronically Signed On 03-09-2024 11:11:13 CDT by Jaguar Bill M.D. [id number]
[2024-03-08 19:06] LABS: Amphetamines Screen Urine Negative (Negative); Barbiturates Screen Urine Negative (Negative); Benzodiazepines Screen Urine Negative (Negative); Cocaine Screen Urine Negative (Negative); Opiate Screen Urine Negative (Negative); PCP Screen Urine Negative (Negative); THC Screen Urine Negative (Negative)
[2024-03-08 19:21] LABS: SARS Covid-2 Antigen negative (Negative)
[2024-03-08 19:25] LABS: Alanine Aminotransferase 24 U/L (0-41); Albumin Level 4.1 g/dL (3.5-5.2); Alkaline Phosphatase 87 U/L (40-130); Anion Gap 19.5 (5-19); Aspartate Amino Transferase 25 U/L (0-40); Blood Urea Nitrogen 6 mg/dL (8-23); Calcium 8.9 mg/dL (8.5-10.5); Carbon Dioxide 22 mmol/L (22-29); Chloride 94 mmol/L (98-107); Creatinine Clr Calc Pharmacy 86.3207; Globulin 2.8 g/dL (1.3-4.6); Glucose 104 mg/dL (65-115); Osmolality Calculated 272 mOsm/kg (285-295); Potassium 3.5 mmol/L (3.5-5.1); Sodium 132 mmol/L (136-145); Thyroid Stimulating Hormone 1.85 uIU/mL (0.27-4.20); Total Bilirubin 0.5 mg/dL (0.15-1.2); Total Protein 6.9 g/dL (6.6-8.7)
[2024-03-08 19:26] LABS: Acetaminophen < 5.0 ug/mL (10-30); Alcohol Level < 10 mg/dL (0-10); Salicylate < 0.3 mg/dL (3-10)
[2024-03-08 20:08] VITALS: BP 143/80; PULSE 60; O2SAT 97
[2024-03-08 23:00] VITALS: BP 106/65; PULSE 54; RESP 16; O2SAT 95
[2024-03-09] VITALS (8 sets, daily range): BP systolic 98–142; BP diastolic 65–83; PULSE 52–70; RESP 16–18; O2SAT 90–98
--- NOTE | 2024-03-09 13:38 | ECG_ITS ---
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 Measurements Intervals [place] Rate: 64 P: 44 [place]: 145 QRS: -14 QRSD: 103 T: 30 QT: 384 QTc: 399 Interpretive Statements SINUS RHYTHM POSSIBLE LEFT ATRIAL ENLARGEMENT [-0.1mV P-WAVE IN V1/V2] Compared to ECG 03/08/2024 18:32:07 No significant changes Electronically Signed On 03-09-2024 18:07:43 CDT by Jaguar Bill M.D. [id number]
--- NOTE | 2024-03-09 14:37 | CTR_ITS ---
PROCEDURE INFORMATION: Exam: CT Head Without Contrast Exam date and time: 03/09/2024 2:51 PM Age: 73 years old Clinical indication: Screening exam; Additional info: Placement TECHNIQUE: Imaging protocol: Computed tomography of the head without contrast. Radiation optimization: All CT scans at this facility use at least one of these dose optimization techniques: automated exposure control; mA and/or kV adjustment per patient size (includes targeted exams where dose is matched to clinical indication); or iterative reconstruction. COMPARISON: CT head wo con* [id number] 06/25/2022 4:05 AM RADIATION DOSE METRICS: Total DLP (mGy-cm): 1159.63 FINDINGS: Brain: Normal. No hemorrhage. Unremarkable white matter. No mass effect. Cerebral ventricles: No ventriculomegaly. Paranasal sinuses: Visualized sinuses are unremarkable. No fluid levels. Mastoid air cells: Visualized mastoid air cells are well aerated. Bones: Unremarkable. No acute fracture. Soft tissues: Unremarkable. CT/CT head wo con* [id number] IMPRESSION: No acute intracranial abnormality.
--- NOTE | 2024-03-09 16:07 | PC.NURSE ---
urine output 1200mL @1600
--- NOTE | 2024-03-09 17:27 | PC.NURSE ---
Spoke to [facility] Radha [phone] [phone]. She said they did have a sheila bed and asked me to fax packet to ER [phone]. Radha called back at 1400 with a room assignment and accepting MD. Lynda called to give report and they unit didn't know what patient she was talking about. Shortly after Dr. Velasquez (the accepting provider) called and said that he was not sure why we were told he was accepted. Due to the patients metastatic cancer they would need a negative head CT. I let Dr. Duckworth know. He called back about 20 minutes later to say that the ER is also worried about the patients port and that he would like us to try speaking to the regular (He is a locum) psychiatrist that will be back in the am (03/10). Informed nurse.
--- NOTE | 2024-03-09 17:35 | CTR_ITS ---
PROCEDURE INFORMATION: Exam: CT Head With Contrast Exam date and time: 03/09/2024 6:02 PM Age: 73 years old Clinical indication: Condition or disease; History of cancer (specify primary cancer site): ; Primary cancer: Colon; Additional info: HX colon CA cancer with mets TECHNIQUE: Imaging protocol: Computed tomography of the head with intravenous contrast. Radiation optimization: All CT scans at this facility use at least one of these dose optimization techniques: automated exposure control; mA and/or kV adjustment per patient size (includes targeted exams where dose is matched to clinical indication); or iterative reconstruction. Contrast material: OMNI 350; Contrast volume: 100 ml; Contrast route: INTRAVENOUS (IV); COMPARISON: CT head wo con* [id number] 03/09/2024 2:51 PM RADIATION DOSE METRICS: Total DLP (mGy-cm): 1185.43 FINDINGS: Brain: No acute intracranial hemorrhage or territorial infarction. No mass effect or midline shift. No mass lesions. Cerebral ventricles: Unremarkable. No ventriculomegaly. Bones/joints: Unremarkable. No acute fracture. Paranasal sinuses: Visualized sinuses are unremarkable. No fluid levels. Mastoid air cells: Visualized mastoid air cells are well aerated. Soft tissues: Unremarkable. CT/CT head w con [id number] IMPRESSION: No acute intracranial findings. No evidence of metastatic disease. Please note MRI brain with IV contrast is more sensitive for metastatic disease evaluation.
--- NOTE | 2024-03-09 17:48 | W.PM.PSYCONS ---
Providers/Reason for Consult Consulting Physican/Specialty*: Valdo Hilario MD/Psychiatry Reason for Consult*: psychosis Primary Care Provider: Chu Ramsey, DO Psych Consult HPI History of Present Illness Sincere Henderson is a 73 year old male with a history of schizophrenia. He arrived to the emergency department with complaints of having difficulties with urination. The patient was evaluated today by this psychiatrist out of concerns that the patient was struggling with paranoia. Patient on interview today reports that he has been having struggles with dealing with his neighbors as he states that people continue to knock on his front door and are stealing things from his house. He states that he repeatedly goes to his front door and they run away. He reports that the same problem had occurred 7 months ago at his previous location and he had been admitted to a psychiatric facility where this problem did not occur. He reports that soon after returning to his home it began again and has been louder for the past few months. He states that he cannot take it anymore living there and wishes to get a break from these things. He did not endorse any thoughts of hurting himself or others. He did report at times that he felt as if he was being targeted and stated that he did not know what he would do if he caught the person that was doing this to him. Medication was reviewed as well as a chart review was completed. Inpatient psychiatric history: He had reported previous inpatient hospitalizations and acknowledged having a diagnosis of schizophrenia. Outpatient psychiatric history: Unknown at this time. Medical history/surgical history: As stated Allergies: Per chart, Klonopin, clozaril, nefazadone, mirtazipine, haldol. Legal History: none reported Medications: as stated, Invega IM 234mg monthly, xanax .25mg daily history: Patient reports that he served in the [employer] from 1969 until 1974. He appears to have a history of some service connection through the [employer] administration. Family psychiatric history: Unknown Social History: lives in [place], reportedly independently, he has no children, and is . He did not endorse a history of trauma. Meds Home Medications and Allergies Home Medications Medication Instructions Recorded Confirmed Last Taken Type Bacillus coagulans 400 million 400 cell PO DAILY 04/02/22 02/05/24 09/29/23 History cell chewable tablet (Digestive Advantage Probiotics-Prebiotic) coenzyme Q10 75 mg capsule (Ultra 75 mg PO DAILY 04/02/22 02/05/24 09/29/23 History CoQ10) magnesium oxide 200 mg PO DAILY 04/02/22 02/05/24 09/29/23 History Orthopedic Shoes with Custom #1 ea 08/14/22 02/05/24 Unknown Rx Insoles oxycodone 5 mg tablet 5 mg PO Q8H PRN pain #14 tabs 09/30/23 02/05/24 Unknown Rx alprazolam 0.25 mg tablet 0.25 mg PO DAILY 10/02/23 02/05/24 Unknown History cyanocobalamin (vitamin B-12) 5,000 mcg PO DAILY 10/02/23 02/05/24 Unknown History 5,000 mcg capsule tamsulosin 0.4 mg capsule 0.4 mg PO DAILY 10/02/23 02/05/24 Unknown History sulfamethoxazole 800 1 tab PO BID 5 days #10 tabs 10/30/23 02/05/24 Unknown Rx mg-trimethoprim 160 mg tablet (Bactrim DS) lecithin 1,200 mg capsule 1,200 mg PO DAILY 12/23/23 02/05/24 Unknown History diclofenac sodium 1 % topical gel 4 g topical QID 30 days #100 grams 01/21/24 02/05/24 Unknown Rx (Voltaren Arthritis Pain) folic acid 1 mg tablet 1 mg PO DAILY 30 days #30 tabs 01/21/24 02/05/24 Unknown Rx paliperidone palmitate 234 mg/1.5 234 mg (1.5 mL) IM Q30D #1.5 mL 02/10/24 Unknown Rx mL intramuscular syringe (Invega Sustenna) Allergies Allergy/AdvReac Type Severity Reaction Status Date / Time clozapine Allergy Unknown Unknown Verified 02/05/24 09:28 haloperidol [From Haldol] Allergy Unknown Unknown Verified 02/05/24 09:28 mirtazapine Allergy Unknown Unknown Verified 02/05/24 09:28 nefazodone Allergy Unknown Unknown Verified 02/05/24 09:28 clonazepam AdvReac ADR-Irritab Verified 02/05/24 09:28 le PFSH NPU PFSH: Medical History Adenocarcinoma of colon metastatic to liver BPH loc w urin obs/LUTS Right inguinal hernia Schizo-affective schizophrenia Surgical History Port-A-Cath in place 09/30/23 Dr Edi Aranda of umbilical hernia repair History of laparoscopic cholecystectomy Family History Mother , at age 70 Cancer Bone Father , at age 72 Colon cancer Grandmother , age unknown Diabetes Social History Smoking and tobacco/nicotine status: current every day tobacco/nicotine user cigarettes Packs smoked per day: 0.25 Years cigarettes smoked: 3.5 Alcohol intake: current Alcohol intake frequency: few times a week Substance/Drug Use: never Lives independently: Yes Marital status: Single service: Yes Current occupational status: retired and disabled Mental Status Exam MSE Comments: The patient was hostile and somewhat irritated throughout the interview. He appeared his stated age with fair hygiene. There was no evidence of any abnormal involuntary motor movements tics or tremors appreciated. After further questioning he had decided to pull his sheet down below to show me his penis that had a Rodriguez catheter and it at the time. He refused to answer any questions regarding his orientation. He had acknowledged being annoyed that other people were knocking on his door and stated that they were attempting to steal things from him. His mood was described as being upset. His affect was irritable and mood congruent. His insight appeared impaired. His judgment was poor. His impulse control appeared limited. Vitals/I&O/Wt Last Vital Signs Temp 97.7 F 03/08/24 13:25 Pulse 70 03/09/24 15:52 Resp 16 03/09/24 06:00 BP 136/72 03/09/24 15:52 Pulse Ox 95 03/09/24 15:52 O2 Del Method Room Air 03/08/24 18:17 Weight last 48 hrs Weight 72.575 kg Physical Exam Urinary Catheter Management: Rodriguez: Cath Placed During This Visit: yes Reason for Continuing Indwelling Catheter: Acute Urinary Retention or Obstruction Urinary Catheter Date of Insertion: 03/08/24 Urinary Catheter Time of Insertion: 17:08 Data NPU 03/08/24 17:41 03/08/24 18:46 A&P Assessment and plan (1) Schizophrenia: Plan 73-year-old male with adenocarcinoma with a history of schizophrenia currently on Invega IM monthly but continued to show evidence of psychosis. He will require inpatient hospitalization and is agreeable to this at this time. Requires transfer to med/psych facility given presence of rodriguez. Attestations NPU Medical Necessity Statement*: Inpatient hospitalization at geriatric/med/psych facility is medically necessary. Coding Level of Care Code Acute Code for [facility] Fwd Diagnoses Schizophrenia F20.9
[2024-03-09] MEDS: iohexol 350 mg/mL 500 mL Btl (per mL) IV (18:06)
[2024-03-10 00:36] VITALS: BP 158/79; PULSE 55; RESP 14; O2SAT 100
[2024-03-10 04:07] VITALS: BP 112/68; PULSE 51; RESP 14; O2SAT 95
[2024-03-10 08:00] VITALS: BP 108/62; PULSE 67; O2SAT 95
[2024-03-10 12:00] VITALS: BP 106/70; PULSE 91; RESP 20; O2SAT 93
--- NOTE | 2024-03-10 12:21 | PC.NURSE ---
PT up to chair to eat lunch. PT is calm and cooperative and denies any further needs at this time
--- NOTE | 2024-03-10 15:02 | DCPLANNER ---
Call from Judith at [facility] Patient would require a 1:1 and they can't accommodate him at this time.
--- NOTE | 2024-03-10 15:12 | DCPLANNER ---
Addendum entered by Sera Casas 03/10/24 15:43: Spoke to uJdith at [facility]- [phone] Original Note: Reviewing Placement intake - [facility] declined unable to get in touch with [facility] due to Nam Called and spoke to Bridget Case management ok to move forward for other placement-
--- NOTE | 2024-03-10 15:37 | PC.NURSE ---
[facility] on [facility]. Informed guardian to be expecting a call from [facility] for possible psych placement
--- NOTE | 2024-03-10 15:49 | W.PM.NPUPNS ---
Subjective NPU Subjective: 73-year-old white male with end-stage adenocarcinoma admitted with increased paranoia with a history of schizophrenia. Patient continued to report that he did not wish to return back to his home as he continued to state that the neighbor was knocking on his door all night. The patient had begged the curriculum writer of this note to admit him into the hospital. He had indicated some struggles with taking the medications to help with his paranoia. Mental Status Exam MSE Comments: The patient was less hostile and more pleasant during the interview. He appeared his stated age with fair hygiene. There was no evidence of any abnormal involuntary motor movements tics or tremors appreciated. He was alert and oriented to person , place and time. His mood was described as frustrated. His affect was subdued. There was prominent delusions and ideas of reference. He denied suicidal ideation and denied homicidal ideation but reported concern from his safety. His insight appeared impaired. His judgment was poor. His impulse control appeared limited. Vitals/I&O/Wt Last Vital Signs Temp 97.7 F 03/08/24 13:25 Pulse 91 03/10/24 12:00 Resp 20 H 03/10/24 12:00 BP 106/70 03/10/24 12:00 Pulse Ox 93 03/10/24 12:00 O2 Del Method Room Air 03/10/24 04:07 Physical Exam Urinary Catheter Management: Browning: Cath Placed During This Visit: yes Reason for Continuing Indwelling Catheter: Acute Urinary Retention or Obstruction Urinary Catheter Date of Insertion: 03/08/24 Urinary Catheter Time of Insertion: 17:08 Data NPU 03/08/24 17:41 03/08/24 18:46 A&P Assessment and plan (1) Schizophrenia, paranoid type: Plan The curriculum writer spoke with Soumya Frank, the patient's guardian and sister who provided a substantial amount of information. The patient had historically struggled with taking antipsychotic medications and had only recently started the intramuscular injection of Invega beginning in December of this year. He had not been initially titrated properly on the Invega and had been at least 7 days overdue his prior Invega given apparently last week. The patient was agreeable as well as the guardian to adding an additional amount of oral Invega to see if it may help with the patient's paranoia and delusions as a likely benefit would be seen with the IM Invega in addition to 3 mg of Invega which will be initiated today. He would still be recommended to the patient received psychiatric inpatient services as he does not appear to be in a condition to return home at this time given his prominent delusions and concern about his own safety. Attestations NPU Medical Necessity Statement*: Seeking inpatient psychiatric hospitalization at geropsychiatric unit. Coding Level of Care Code Acute Code for [facility] Diagnoses Schizophrenia, paranoid type F20.0
[2024-03-10 16:00] VITALS: PULSE 70; O2SAT 94
--- NOTE | 2024-03-10 17:02 | PC.NURSE ---
[facility] declined due to rodriguez catheter
--- NOTE | 2024-03-10 17:03 | PC.NURSE ---
[facility] declined due to PT being immunocompromised
[2024-03-10] MEDS: paliperidone ER 3 mg Tablet PO (17:49)
--- NOTE | 2024-03-10 18:58 | PC.NURSE ---
Denise JAVED and this precepting nurse assumed care at shift change.
--- NOTE | 2024-03-10 19:30 | PC.NURSE ---
Patient accepted at [facility] at this time.
--- NOTE | 2024-03-10 19:56 | PC.NURSE ---
Guardian Lissett Frank gave verbal consent to allow pt to be treated at [facility] at [facility]. Jammie JAVED was second witness.
[2024-03-10 20:30] VITALS: BP 100/61; PULSE 82; O2SAT 95
== END 2024-03-10 20:30 ==
PROVIDERS: Emergency Medicine; Nurse Practitioner Family; Emergency Provider Family Medicine; PCP Emergency Medicine Emergency Medical Services
DX: R33.9 Retention of urine, unspecified (principal); F32.3 Major depressive disorder, single episode, severe with psychotic features; Z85.038 Personal history of other malignant neoplasm of large intestine; Z85.05 Personal history of malignant neoplasm of liver; F17.210 Nicotine dependence, cigarettes, uncomplicated; Z11.52 Encounter for screening for COVID-19
CPT/HCPCS: 36415; 51702; 51798; 70450; 70460; 71045; 80048; 80053; 80306; 80307; 81003; 81015; 84443; 85025; 87426; 93005; 99285

== ENCOUNTER 2024-04-07 07:59 | Emergency (ER) | payer OTHER, MEDICARE, SELFPAY ==
[2024-04-07 08:03] VITALS: BP 121/76; PULSE 112; RESP 16; TEMP 36.5; O2SAT 96; BMI 22.3
--- NOTE | 2024-04-07 08:12 | ED_ITS ---
HPI - General Adult 2 General: Chief complaint: General Medical Stated complaint: mhe Time Seen by Provider: 04/07/24 08:03 History of Present Illness: 73-year-old male presents as a emergency room requesting residential placement. He has a Browning catheter in place since he has a difficult time managing that he has difficult time with ADLs. When asked him specifically what was going on that he could manage at home he states he needs to go to the book that he needs to go to the restaurant he needs to get gas for his car. He states he has a difficult time driving. When pressed on more ADL type activities he deflects. Demands that we just take his word from it and move on. Associated symptoms: Deny chest pain, dyspnea or rash Related Data Home Medications Medication Instructions Recorded Confirmed Bacillus coagulans 400 million 400 cell PO DAILY 04/02/22 04/07/24 cell chewable tablet (Digestive Advantage Probiotics-Prebiotic) coenzyme Q10 75 mg capsule (Ultra 75 mg PO DAILY 04/02/22 04/07/24 CoQ10) magnesium oxide 200 mg PO DAILY 04/02/22 04/07/24 cyanocobalamin (vitamin B-12) 5,000 mcg PO DAILY 10/02/23 04/07/24 5,000 mcg capsule tamsulosin 0.4 mg capsule 0.4 mg PO DAILY 10/02/23 04/07/24 lecithin 1,200 mg capsule 1,200 mg PO DAILY 12/23/23 04/07/24 Previous Rx's Medication Instructions Recorded Orthopedic Shoes with Custom #1 ea 08/14/22 Insoles diclofenac sodium 1 % topical gel 4 g topical QID 30 days #100 grams 01/21/24 (Voltaren Arthritis Pain) paliperidone palmitate 234 mg/1.5 234 mg (1.5 mL) IM Q30D #1.5 mL 02/10/24 mL intramuscular syringe (Invega Sustenna) ciprofloxacin HCl 500 mg tablet 500 mg PO BID #14 tabs 04/07/24 (Cipro) risperidone 2 mg tablet (Risperdal) 2 mg PO .qhs #30 tabs 04/07/24 Allergies Allergy/AdvReac Type Severity Reaction Status Date / Time clozapine Allergy Unknown Unknown Verified 02/05/24 09:28 haloperidol [From Haldol] Allergy Unknown Unknown Verified 02/05/24 09:28 mirtazapine Allergy Unknown Unknown Verified 02/05/24 09:28 nefazodone Allergy Unknown Unknown Verified 02/05/24 09:28 clonazepam AdvReac ADR-Irritab Verified 02/05/24 09:28 le Review of Systems 2 Const: Denies: fever(s) or chills Card: Denies: chest pain Resp: Denies: dyspnea GI: Denies: abdominal pain Musc: Denies: neck pain or back pain Skin/Breast: Denies: rash PFSH ED 2 PFSH: Medical History Adenocarcinoma of colon metastatic to liver BPH loc w urin obs/LUTS Right inguinal hernia Schizo-affective schizophrenia Surgical History Port-A-Cath in place 09/30/23 Dr Daley Hx of umbilical hernia repair History of laparoscopic cholecystectomy Family History Mother , at age 70 Cancer Bone Father , at age 72 Colon cancer Grandmother , age unknown Diabetes Social History Smoking and tobacco/nicotine status: current every day tobacco/nicotine user cigarettes Packs smoked per day: 0.25 Years cigarettes smoked: 3.5 Alcohol intake: current Alcohol intake frequency: few times a week Substance/Drug Use: never Lives independently: Yes Marital status: Single service: Yes Current occupational status: retired and disabled Physical Exam 2 Const: COMMON NORMALS: no acute distress GENERAL APPEARANCE: cooperative and comfortable ORIENTATION/CONSCIOUSNESS: Yes awake HENMT: COMMON NORMALS: normocephalic, atraumatic and hearing grossly normal bilaterally HEAD & SCALP: normocephalic and atraumatic Resp: COMMON NORMALS: normal respiratory effort, No retractions, No use of accessory muscles and clear to auscultation bilaterally AUSCULTATION: clear to auscultation bilaterally Cardio: COMMON NORMALS: regular rate, regular rhythm and No murmurs present (Cardio) RATE: regular rate RHYTHM: regular rhythm GI: COMMON NORMALS: Soft to palpation and No hepatosplenomegaly present A USCULTATION: Yes normoactive bowel sounds PALPATION: Yes Soft to palpation, No Tenderness to palpation present (GI), No Guarding due to palpation present (GI) and Yes No hepatosplenomegaly present : OTHER: Browning in place Extremity: COMMON NORMALS: normal to inspection, capillary refill normal, no clubbing, cyanosis or edema, no calf tenderness and no pedal edema Skin: COMMON NORMALS: no rashes or lesions noted GENERAL SKIN EXAM: no rashes or lesions noted Course 2 Vital Signs: Vital signs: Vital Signs Temperature 97.7 F 04/07/24 08:03 Pulse Rate 80 04/07/24 15:58 Respiratory Rate 17 04/07/24 15:58 Blood Pressure 135/88 04/07/24 15:58 Pulse Oximetry 97 04/07/24 15:58 Oxygen Delivery Me thod Nasal Cannula 04/07/24 15:58 Oxygen Flow Rate 2 04/07/24 15:58 MDM - General Adult Medical Decision Making Patient still has Browning in place UA did show signs of cystitis rest of his labs unremarkable. He wants to go to a residential. He cannot go there at this point because he will require level 2. He has a guardian who does not want him to go to the residential at this point. We got real copies of his records from the recent [place] hospitalization he was post be taking Risperdal but he has not been taking them. He is also eventually we did find out 2 days late on his [facility] shot [facility] Reviewed his case with Dr. Raymond he was familiar with him was seen and the last time he was here he recommends resuming the Risperdal at 2 mg at at bedtime and getting the Invega shot as soon as possible. I did discuss his case with his sister who is his guardian as well. [facility]. They are also going to start working on getting a level [address] if he does decide to go to the residential or for some other reason needs to because of change in condition this will be completed. Unfortunately lives alone in this area is sister lives in [place] but is unable to get him back over there. Lab Data 04/07/24 08:21 04/07/24 08:21 Laboratory Results WBC 6.57 10^3/uL (3.29-11.43) 04/07/24 08:21 RBC 3.94 10^6/uL (3.85-5.65) 04/07/24 08:21 Hgb 12.10 g/dL (11.27-16.99) 04/07/24 08:21 Hct 37.0 % (37-53) 04/07/24 08:21 MCV 93.9 fl (82-101) 04/07/24 08:21 MCH 30.7 pg (27-33) 04/07/24 08:21 MCHC 32.7 g/dL (30-55) 04/07/24 08:21 RDW 15.8 % (12.1-15.1) H 04/07/24 08:21 Plt Count 193 10^3/cmm (157-399) 04/07/24 08:21 MPV 9.5 fL (7.4-10.4) 04/07/24 08:21 Neut % (Auto) 67.5 % 04/07/24 08:21 Lymph % (Auto) 24.7 % 04/07/24 08:21 Taliaferro % (Auto) 5.8 % 04/07/24 08:21 Eos % (Auto) 1.1 % 04/07/24 08:21 Baso % (Auto) 0.3 % 04/07/24 08:21 Neut # (Auto) 4.44 10^3/uL (1.8-7.7) 04/07/24 08:21 Lymph # (Auto) 1.6 10^3/uL (0.8-4.8) 04/07/24 08:21 Taliaferro # (Auto) 0.4 10^3/uL (0.2-0.9) 04/07/24 08:21 Eos # (Auto) 0.1 10^3/uL (0.0-0.8) 04/07/24 08:21 Baso # (Auto) 0.0 10^3/uL (0.0-0.1) 04/07/24 08:21 Nucleated RBC % (auto) 0 % 04/07/24 08:21 Nucleated RBCs # 0.0 /100WBC 04/07/24 08:21 Sodium 139 mmol/L (136-145) 04/07/24 08:21 Potassium 3.4 mmol/L (3.5-5.1) L 04/07/24 08:21 Chloride 103 mmol/L (98-107) 04/07/24 08:21 Carbon Dioxide 22 mmol/L (22-29) 04/07/24 08:21 Anion Gap 17.4 (5-19) 04/07/24 08:21 BUN 9 mg/dL (8-23) 04/07/24 08:21 Creatinine 0.8 mg/dL (0.7-1.2) 04/07/24 08:21 GFR Calculation Not Reportable 04/07/24 08:21 Glucose 176 mg/dL (65-115) H 04/07/24 08:21 Calculated Osmolality 291 mOsm/kg (285-295) 04/07/24 08:21 Calcium 8.5 mg/dL (8.5-10.5) 04/07/24 08:21 Total Bilirubin 0.5 mg/dL (0.15-1.2) 04/07/24 08:21 AST 30 U/L (0-40) 04/07/24 08:21 ALT 48 U/L (0-41) H 04/07/24 08:21 Alkaline Phosphatase 99 U/L (40-130) 04/07/24 08:21 Total Protein 6.8 g/dL (6.6-8.7) 04/07/24 08:21 Albumin 3.2 g/dL (3.5-5.2) L 04/07/24 08:21 Globulin 3.6 g/dL (1.3-4.6) 04/07/24 08:21 Urine Color Yellow (Yellow) 04/07/24 15:42 Urine Appearance Cloudy (CLEAR) A 04/07/24 15:42 Urine pH 7.0 (5-7) 04/07/24 15:42 Ur Specific [place] 1.007 (1.005-1.030) 04/07/24 15:42 Urine Protein Negative (Negative) 04/07/24 15:42 Urine Glucose (UA) Negative (Normal) 04/07/24 15:42 Urine Ketones Negative (Negative) 04/07/24 15:42 Urine Blood 2+ (Negative) A 04/07/24 15:42 Urine Nitrate Negative (Negative) 04/07/24 15:42 Urine Bilirubin Negative (Negative) 04/07/24 15:42 Urine Urobilinogen 1.0 mg/dL (Negative) 04/07/24 15:42 Ur Leukocyte Esterase 3+ (Negative) A 04/07/24 15:42 Urine RBC 10-15 /hpf (0-2) H 04/07/24 15:42 Urine WBC >100 /hpf (0-5) H 04/07/24 15:42 Ur Squamous Epith Cells 5-10 /hpf (0-5) H 04/07/24 15:42 Amorphous Sediment 1+ /hpf 04/07/24 15:42 Urine Bacteria 2+ /hpf (NONE) H 04/07/24 15:42 Urine Mucus Trace /hpf 04/07/24 15:42 Salicylates < 0.3 mg/dL (3-10) L 04/07/24 08:21 Urine Opiates Screen Negative ng/mL (Negative) 04/07/24 15:42 Acetaminophen < 5.0 ug/mL (10-30) L 04/07/24 08:21 Ur Barbiturates Screen Negative ng/mL (Negative) 04/07/24 15:42 Ur Phencyclidine Scrn Negative ng/mL (Negative) 04/07/24 15:42 Ur Amphetamines Screen Negative ng/mL (Negative) 04/07/24 15:42 U Benzodiazepines Scrn Negative ng/mL (Negative) 04/07/24 15:42 Urine Cocaine Screen Negative ng/mL (Negative) 04/07/24 15:42 U Marijuana (THC) Screen Negative ng/mL (Negative) 04/07/24 15:42 No radiology studies performed this visit Discharge Plan Discharge Patient Disposition: Home Clinical Impression: Schizophrenia, paranoid type, Cystitis Condition: Stable Prescriptions: New risperidone [Risperdal] 2 mg tablet 2 mg PO .qhs Qty: 30 0RF ciprofloxacin HCl [Cipro] 500 mg tablet 500 mg PO BID Qty: 14 0RF No Action magnesium oxide 200 mg magnesium tablet 200 mg PO DAILY Rx Instructions: 190 mg daily Ultra CoQ10 75 mg capsule 75 mg PO DAILY Digestive Advantage Probio-Pre 400 million cell tablet,chewable 400 cell PO DAILY (DME) Orthopedic Shoes with Custom Insoles See Rx Instructions .Route .MEDSUPPLY Qty: 1 0RF Rx Instructions: As directed by [facility] Patient tamsulosin 0.4 mg capsule 0.4 mg PO DAILY cyanocobalamin (vitamin B-12) 5,000 mcg capsule 5,000 mcg PO DAILY lecithin 1,200 mg capsule 1,200 mg PO DAILY Rx Instructions: give with meal/snack diclofenac sodium [Voltaren Arthritis Pain] 1 % gel 4 g topical QID 30 Days Qty: 100 5RF Rx Instructions: apply to single knee, ankle, foot; for foot includes sole/toes/top of foot Invega Sustenna 234 mg/1.5 mL syringe 234 mg IM Q30D Qty: 1.5 0RF Discharge Orders: Discharge ED (Routine); Ordered 04/07/24 Ordered By: Mele Duckworth Referrals: Chu Ramsey, DO [Primary Care Provider] - Discharge Diet: Usual diet Discharge Activity: Increase activity as tolerated Patient Instructions: Opioid Safety, Pain Management Activity Restrictions/Additional Instructions: Thank you for choosing [facility] for your healthcare needs today. It is very important that you follow up as instructed or that you return to the Emergency Department should you have concerns or if your condition changes or worsens in any way. You are seen emergency room today we discussed your case with our psychiatrist on duty as well. Reviewed your records from your recent hospitalization at [facility]. Recommend you resume Risperdal 2 mg at bedtime. I did talk to your sister as well she said you are 2 days late for your Invega shot you should contact the [place] to have this shot as soon as you are able. Coding Level of Care Code ED Type Inspector for [facility]
[2024-04-07 08:27] LABS: Basophils % 0.3 %; Eosinophils # 0.1 10^3/uL (0.0-0.8); Eosinophils % 1.1 %; Lymphocytes # 1.6 10^3/uL (0.8-4.8); Lymphocytes % 24.7 %; Mean Corpuscular HGB Conc 32.7 g/dL (30-55); Mean Corpuscular Hemoglobin 30.7 pg (27-33); Mean Corpuscular Volume 93.9 fl (82-101); Mean Platelet Volume 9.5 fL (7.4-10.4); Monocytes # 0.4 10^3/uL (0.2-0.9); Monocytes % 5.8 %; Neutrophils # 4.44 10^3/uL (1.8-7.7); Neutrophils % 67.5 %; Nucleated Red Blood Cells % 0 %; Platelet Count 193 10^3/cmm (157-399); Red Blood Count 3.94 10^6/uL (3.85-5.65); Red Cell Distribution Width 15.8 % (12.1-15.1); White Blood Count 6.57 10^3/uL (3.29-11.43)
[2024-04-07 08:51] LABS: Alanine Aminotransferase 48 U/L (0-41); Albumin Level 3.2 g/dL (3.5-5.2); Alkaline Phosphatase 99 U/L (40-130); Anion Gap 17.4 (5-19); Aspartate Amino Transferase 30 U/L (0-40); Blood Urea Nitrogen 9 mg/dL (8-23); Calcium 8.5 mg/dL (8.5-10.5); Carbon Dioxide 22 mmol/L (22-29); Chloride 103 mmol/L (98-107); Creatinine Clr Calc Pharmacy 86.3207; Globulin 3.6 g/dL (1.3-4.6); Glucose 176 mg/dL (65-115); Osmolality Calculated 291 mOsm/kg (285-295); Potassium 3.4 mmol/L (3.5-5.1); Sodium 139 mmol/L (136-145); Total Bilirubin 0.5 mg/dL (0.15-1.2); Total Protein 6.8 g/dL (6.6-8.7)
[2024-04-07 08:53] LABS: Acetaminophen < 5.0 ug/mL (10-30); Salicylate < 0.3 mg/dL (3-10)
[2024-04-07] MEDS: risperiDONE 1 mg Tablet PO (15:34)
[2024-04-07 15:58] VITALS: BP 135/88; PULSE 80; RESP 17; O2SAT 97
[2024-04-07 16:15] LABS: Bilirubin Urine Negative (Negative); Blood Urine 2+ (Negative); Glucose Urine UA Negative (Normal); Ketones Urine Negative (Negative); Leukocyte Esterase Urine 3+ (Negative); Nitrate Urine Negative (Negative); Protein Urine Negative (Negative); Specific Gravity, Urine 1.007 (1.005-1.030); Urine Appearance Cloudy (CLEAR); Urine Color Yellow (Yellow)
[2024-04-07 16:21] LABS: Amphetamines Screen Urine Negative (Negative); Barbiturates Screen Urine Negative (Negative); Benzodiazepines Screen Urine Negative (Negative); Cocaine Screen Urine Negative (Negative); Opiate Screen Urine Negative (Negative); PCP Screen Urine Negative (Negative); THC Screen Urine Negative (Negative)
[2024-04-07 16:35] LABS: UA Manual Slide Review YES; UA Slide Review UA Slide Review Perf
[2024-04-07 16:38] LABS: Add Urine Microscopic? YES
[2024-04-07 16:39] LABS: Add Urine Culture? Yes; Amorphous Sediment Urine 1+ /hpf; Bacteria Urine 2+ /hpf; Mucus Urine TRACE /hpf; WBC Urine >100 /hpf (0-5)
--- NOTE | 2024-04-07 17:41 | W.ED.GENADLT ---
HPI - General Adult General: Chief complaint: General Medical Stated complaint: mhe Time Seen by Provider: 04/07/24 08:03 Related Data Home Medications Medication Instructions Recorded Confirmed Bacillus coagulans 400 million 400 cell PO DAILY 04/02/22 04/07/24 cell chewable tablet (Digestive Advantage Probiotics-Prebiotic) coenzyme Q10 75 mg capsule (Ultra 75 mg PO DAILY 04/02/22 04/07/24 CoQ10) magnesium oxide 200 mg PO DAILY 04/02/22 04/07/24 cyanocobalamin (vitamin B-12) 5,000 mcg PO DAILY 10/02/23 04/07/24 5,000 mcg capsule tamsulosin 0.4 mg capsule 0.4 mg PO DAILY 10/02/23 04/07/24 lecithin 1,200 mg capsule 1,200 mg PO DAILY 12/23/23 04/07/24 Previous Rx's Medication Instructions Recorded Orthopedic Shoes with Custom #1 ea 08/14/22 Insoles diclofenac sodium 1 % topical gel 4 g topical QID 30 days #100 grams 01/21/24 (Voltaren Arthritis Pain) paliperidone palmitate 234 mg/1.5 234 mg (1.5 mL) IM Q30D #1.5 mL 02/10/24 mL intramuscular syringe (Invega Sustenna) ciprofloxacin HCl 500 mg tablet 500 mg PO BID #14 tabs 04/07/24 (Cipro) risperidone 2 mg tablet (Risperdal) 2 mg PO .qhs #30 tabs 04/07/24 Allergies Allergy/AdvReac Type Severity Reaction Status Date / Time clozapine Allergy Unknown Unknown Verified 02/05/24 09:28 haloperidol [From Haldol] Allergy Unknown Unknown Verified 02/05/24 09:28 mirtazapine Allergy Unknown Unknown Verified 02/05/24 09:28 nefazodone Allergy Unknown Unknown Verified 02/05/24 09:28 clonazepam AdvReac ADR-Irritab Verified 02/05/24 09:28 le [facility] ED PFSH: Medical History Adenocarcinoma of colon metastatic to liver BPH loc w urin obs/LUTS Right inguinal hernia Schizo-affective schizophrenia Surgical History Port-A-Cath in place 09/30/23 Dr Daley Hx of umbilical hernia repair History of laparoscopic cholecystectomy Family History Mother , at age 70 Cancer Bone Father , at age 72 Colon cancer Grandmother , age unknown Diabetes Social History Smoking and tobacco/nicotine status: current every day tobacco/nicotine user cigarettes Packs smoked per day: 0.25 Years cigarettes smoked: 3.5 Alcohol intake: current Alcohol intake frequency: few times a week Substance/Drug Use: never Lives independently: Yes Marital status: Single service: Yes Current occupational status: retired and disabled Course Vital Signs: Vital signs: Vital Signs Temperature 97.7 F 04/07/24 08:03 Pulse Rate 80 04/07/24 15:58 Respiratory Rate 17 04/07/24 15:58 Blood Pressure 135/88 04/07/24 15:58 Pulse Oximetry 97 04/07/24 15:58 Oxygen Delivery Me thod Nasal Cannula 04/07/24 15:58 Oxygen Flow Rate 2 04/07/24 15:58 MDM - General Adult Lab Data 04/07/24 08:21 04/07/24 08:21 Laboratory Results WBC 6.57 10^3/uL (3.29-11.43) 04/07/24 08:21 RBC 3.94 10^6/uL (3.85-5.65) 04/07/24 08:21 Hgb 12.10 g/dL (11.27-16.99) 04/07/24 08:21 Hct 37.0 % (37-53) 04/07/24 08:21 MCV 93.9 fl (82-101) 04/07/24 08:21 MCH 30.7 pg (27-33) 04/07/24 08:21 MCHC 32.7 g/dL (30-55) 04/07/24 08:21 RDW 15.8 % (12.1-15.1) H 04/07/24 08:21 Plt Count 193 10^3/cmm (157-399) 04/07/24 08:21 MPV 9.5 fL (7.4-10.4) 04/07/24 08:21 Neut % (Auto) 67.5 % 04/07/24 08:21 Lymph % (Auto) 24.7 % 04/07/24 08:21 [place] % (Auto) 5.8 % 04/07/24 08:21 Eos % (Auto) 1.1 % 04/07/24 08:21 Baso % (Auto) 0.3 % 04/07/24 08:21 Neut # (Auto) 4.44 10^3/uL (1.8-7.7) 04/07/24 08:21 Lymph # (Auto) 1.6 10^3/uL (0.8-4.8) 04/07/24 08:21 [place] # (Auto) 0.4 10^3/uL (0.2-0.9) 04/07/24 08:21 Eos # (Auto) 0.1 10^3/uL (0.0-0.8) 04/07/24 08:21 Baso # (Auto) 0.0 10^3/uL (0.0-0.1) 04/07/24 08:21 Nucleated RBC % (auto) 0 % 04/07/24 08:21 Nucleated RBCs # 0.0 /100WBC 04/07/24 08:21 Sodium 139 mmol/L (136-145) 04/07/24 08:21 Potassium 3.4 mmol/L (3.5-5.1) L 04/07/24 08:21 Chloride 103 mmol/L (98-107) 04/07/24 08:21 Carbon Dioxide 22 mmol/L (22-29) 04/07/24 08:21 Anion Gap 17.4 (5-19) 04/07/24 08:21 BUN 9 mg/dL (8-23) 04/07/24 08:21 Creatinine 0.8 mg/dL (0.7-1.2) 04/07/24 08:21 GFR Calculation Not Reportable 04/07/24 08:21 Glucose 176 mg/dL (65-115) H 04/07/24 08:21 Calculated Osmolality 291 mOsm/kg (285-295) 04/07/24 08:21 Calcium 8.5 mg/dL (8.5-10.5) 04/07/24 08:21 Total Bilirubin 0.5 mg/dL (0.15-1.2) 04/07/24 08:21 AST 30 U/L (0-40) 04/07/24 08:21 ALT 48 U/L (0-41) H 04/07/24 08:21 Alkaline Phosphatase 99 U/L (40-130) 04/07/24 08:21 Total Protein 6.8 g/dL (6.6-8.7) 04/07/24 08:21 Albumin 3.2 g/dL (3.5-5.2) L 04/07/24 08:21 Globulin 3.6 g/dL (1.3-4.6) 04/07/24 08:21 Urine Color Yellow (Yellow) 04/07/24 15:42 Urine Appearance Cloudy (CLEAR) A 04/07/24 15:42 Urine pH 7.0 (5-7) 04/07/24 15:42 Ur Specific [place] 1.007 (1.005-1.030) 04/07/24 15:42 Urine Protein Negative (Negative) 04/07/24 15:42 Urine Glucose (UA) Negative (Normal) 04/07/24 15:42 Urine Ketones Negative (Negative) 04/07/24 15:42 Urine Blood 2+ (Negative) A 04/07/24 15:42 Urine Nitrate Negative (Negative) 04/07/24 15:42 Urine Bilirubin Negative (Negative) 04/07/24 15:42 Urine Urobilinogen 1.0 mg/dL (Negative) 04/07/24 15:42 Ur Leukocyte Esterase 3+ (Negative) A 04/07/24 15:42 Urine RBC 10-15 /hpf (0-2) H 04/07/24 15:42 Urine WBC >100 /hpf (0-5) H 04/07/24 15:42 Ur Squamous Epith Cells 5-10 /hpf (0-5) H 04/07/24 15:42 Amorphous Sediment 1+ /hpf 04/07/24 15:42 Urine Bacteria 2+ /hpf (NONE) H 04/07/24 15:42 Urine Mucus Trace /hpf 04/07/24 15:42 Salicylates < 0.3 mg/dL (3-10) L 04/07/24 08:21 Urine Opiates Screen Negative ng/mL (Negative) 04/07/24 15:42 Acetaminophen < 5.0 ug/mL (10-30) L 04/07/24 08:21 Ur Barbiturates Screen Negative ng/mL (Negative) 04/07/24 15:42 Ur Phencyclidine Scrn Negative ng/mL (Negative) 04/07/24 15:42 Ur Amphetamines Screen Negative ng/mL (Negative) 04/07/24 15:42 U Benzodiazepines Scrn Negative ng/mL (Negative) 04/07/24 15:42 Urine Cocaine Screen Negative ng/mL (Negative) 04/07/24 15:42 U Marijuana (THC) Screen Negative ng/mL (Negative) 04/07/24 15:42 Discharge Plan Discharge Patient Disposition: Home Clinical Impression: Schizophrenia, paranoid type, Cystitis Condition: Stable Prescriptions: New risperidone [Risperdal] 2 mg tablet 2 mg PO .qhs Qty: 30 0RF ciprofloxacin HCl [Cipro] 500 mg tablet 500 mg PO BID Qty: 14 0RF No Action magnesium oxide 200 mg magnesium tablet 200 mg PO DAILY Rx Instructions: 190 mg daily Ultra CoQ10 75 mg capsule 75 mg PO DAILY Digestive Advantage Probio-Pre 400 million cell tablet,chewable 400 cell PO DAILY (DME) Orthopedic Shoes with Custom Insoles See Rx Instructions .Route .MEDSUPPLY Qty: 1 0RF Rx Instructions: As directed by [facility] Patient tamsulosin 0.4 mg capsule 0.4 mg PO DAILY cyanocobalamin (vitamin B-12) 5,000 mcg capsule 5,000 mcg PO DAILY lecithin 1,200 mg capsule 1,200 mg PO DAILY Rx Instructions: give with meal/snack diclofenac sodium [Voltaren Arthritis Pain] 1 % gel 4 g topical QID 30 Days Qty: 100 5RF Rx Instructions: apply to single knee, ankle, foot; for foot includes sole/toes/top of foot Invega Sustenna 234 mg/1.5 mL syringe 234 mg IM Q30D Qty: 1.5 0RF Discharge Orders: Discharge ED (Routine); Ordered 04/07/24 Ordered By: Mele Duckworth Referrals: Chu Ramsey, [Primary Care Provider] - Discharge Diet: Usual diet Discharge Activity: Increase activity as tolerated Patient Instructions: Opioid Safety, Pain Management Activity Restrictions/Additional Instructions: Thank you for choosing [facility] for your healthcare needs today. It is very important that you follow up as instructed or that you return to the Emergency Department should you have concerns or if your condition changes or worsens in any way. You are seen emergency room today we discussed your case with our psychiatrist on duty as well. Reviewed your records from your recent hospitalization at [facility]. Recommend you resume Risperdal 2 mg at bedtime. I did talk to your sister as well she said you are 2 days late for your Invega shot [facility] as soon as [facility] are able. Coding Level of Care Code ED Film Historian for Alex Webb
[2024-04-07 17:48] VITALS: BP 124/71; PULSE 73; O2SAT 98
== END 2024-04-07 17:49 | disposition home or self-care (01) ==
PROVIDERS: Emergency Provider Family Medicine; PCP Emergency Medicine Emergency Medical Services
DX: F20.0 Paranoid schizophrenia (principal); N30.90 Cystitis, unspecified without hematuria
CPT/HCPCS: 36415; 80053; 80306; 80307; 81001; 85025; 87077; 87086; 87186; 99283